=== PATIENT | female | born 1945 | race Caucasian/White ===

== ENCOUNTER → 2016-03-02 | Outpatient (CLI) | payer OTHER ==
[~2016-03-02] MED LIST: ADULT LOW DOSE81 MG PO; ALEVE220 MG; ALIVE WOMEN'S1 EACH PO; ANTIVERT25 MG PO; ASPIRIN EC81 M1; AZITHROMYCIN 2250 MG PO; BLADDER PILL; CARISOPRODOL 3350 MG PO; CEFDINIR300 MG PO; CELEXA20 MG PO; CELEXA40 MG PO; CITRATE OF MAG296 ML PO; CLARITIN10 MG PO; CLONIDINE0.1 PO; CYCLOBENZAPRINE5 MG PO; DEPRESSION PO; DILTIAZEM ER240 M1 PO; DRANOCHOL375 MG PO; EFFEXOR XR75 MG PO; FISHOIL PO; FLONASE 0.05%50 MCG NASAL; FOSAMAX 70 MG T70 M1 PO; FUROSEMIDE 40 M40 M1 PO; FUROSEMIDE PO; GLUCOPHAGE500 MG PO; GLUCOSAMINE &1 EAC1 PO; HYDROCODON-ACE1 EAC8 PO; HYDROCODONE-AP1 EAC6 PO; HYZAAR 100-251 EACH PO; HYZAAR 50-12.51 EACH PO; HYZAAR PO; IBUPROFEN 800800 MG PO; KLOR-CON 1010 MEQ; LANTUS SC; LANTUS SUBQ; LASIX 40 MG TAB40 M1 PO; LEVOTHROID; LEVOTHROID100 MC1 PO; LEVOTHYROXINE 0.1 MG PO; LEVOTHYROXINE100 MC1 PO; LEVOXYL100 MCG PO; LEVSIN0.125 MG PO; LEXAPRO20 MG; LIPITOR10 MG PO; LOPRESSOR50 PO; LOSARTAN-HCTZ1 EAC1 PO; LOSARTAN-HCTZ1 EACH PO; MECLIZINE HCL25 M1 PO; METFORMIN PO; MIRALAX17 GM PO; MOTION SICKNESS50 MG PO; NAPROSYN500 MG PO; NEPHROCAPS SOFT1 CAP PO; NEURONTIN 300300 M1 PO; NORCO 5-325 TA1 EACH; NORCO 5-325 TA1 EACH PO; NORVASC5 MG PO; NOVOLOG100 UNIT/1; NOVOLOG100 UNIT/1 SQ; OMEPRAZOLE; OMEPRAZOLE 20 M20 M1 PO; OMEPRAZOLE40 MG PO; OXYBUTYNIN 5 MG5 M1; OXYBUTYNIN 5 MG5 M1 PO; PAMELOR50 MG PO; PEPCID COMPLET1 EACH PO; PHENERGAN 25 MG25 M1 PO; POTASSIUM CL 225 MEQ PO; POTASSIUM20 PO; PREDNISONE; PREDNISONE 10 M10 MG PO; PREVACID PO; PREVACID15 MG; PRILOSEC40 MG PO; PROTONIX40 M1 PO; RANITIDINE PO; SIMVASTATIN40 MG PO; SYNTHROID PO; TRAMADOL 50 MG50 MG PO; ULTRAM 50MG TAB50 MG PO; VENLAFAXINE HC150 MG PO; VITAMIN D31 ML MC; ZANTAC 150MG T150 M1; ZANTAC 150MG T150 MG PO; ZESTORETIC 20-1 EACH PO; ZOCOR PO; ZOCOR40 MG PO; ZOFRAN ODT4 MG PO
--- NOTE | ~2016-03-02 | PFR/MVV ---
[facility] [place] [address] PULMONARY FUNCTION MVV/REPORT Name: ROLAND FOREMAN Room #: REG [facility].#: [id number] Admission: 03/02/16 Attend Phys: Gary Simental MD Discharge: Date of : 49 Report #: [id number] THIS REPORT FOR: //name// COPIES FOR: AGE: 70 SEX/RACE: F/C >> SPIROMETRY: (BTPS) Height: 66 in cm Weight: 190 lbs kg Exam Date: 03/02/16 PRE-RX POST-RX PRED BEST %PRED BEST %PRED %CHG FVC LITERS . 3.12 . 2.70 . 87 . 2.29 . 74 . -15 FEV1 LITERS . 2.46 . 2.11 . 86 . 2.01 . 82 . -5 FEV1/FVC % . 81 . 78 . 96 . 88 . 108 . 12 EEY49-98% L/Sec . 2.53 . 2.03 . 80 . 2.06 . 121 . 51 PEF L/SEC . 5.78 . 4.52 . 78 . 4.90 . 85 . 8 FEF50/FIF50 UNITLESS . <1.00 . 0.83 . . 24.73 . . 2872 MVV L/Min . 86 . 53 . 62 f 1/Min . . 95 . >> LUNG VOLUMES: (BTPS) PRE-RX POST-RX PRED AVG %PRED AVG %PRED %CHG VC Liters . 3.12 . 2.70 . 87 . . . TLC Liters . 5.23 . 5.16 . 99 . . . RV Liters . 2.08 . 2.46 . 118 . . . RV/TLC % . 40 . 48 . 120 . . . FRC PL Liters . 2.71 . 3.09 . 114 . . . FRC N2 Liters . 2.71 . . . . . ERV Liters . . 0.63 . . . . IC Liters . . 1.77 . . . . >> DIFFUSION: DLCO ml/Min/mmHg . 22.9 . 12.6 . 55 . . . DL Oscar ml/Min/mmHg . 22.9 . 12.6 . 55 . 3.63 . 3.86 . 107 DLCO/VA ml/Min/mmHg . . 3.27 . . . . VA Liters . . . . . . [facility] [address] [place] [address] PULMONARY FUNCTION MVV/REPORT Name: ROLAND FOREMAN Room #: REG [facility] Mansoor#: [id number] Admission: 03/02/16 Attend Phys: Gary Simental MD Discharge: Date of : 49 Report #: [id number] COMMENTS: COMMENTS: >> RESISTANCE: PRE-RX PRED AVG %PRED Raw Total cmH20/L/Sec . . 4.39 . Raw Insp cmH20/L/Sec . . 5.53 . Raw Exp cmH20/L/Sec . . 3.52 . Raw cmH20/L/Sec . 1.42 . 1.90 . 134 Gaw L/Sec/cmH20 . 0.649 . 0.526 . 81 sRaw cmH20 Sec . 3.83 . 6.26 . 163 sGaw l/cmH20 Sec . 0.261 . 0.160 . 61 Vtq Liters . . 3.29 . # = OUTSIDE 95% CONFIDENCE INTERVAL CALIBRATION: PRED: 3.00 ACTUAL: EXP 3.01 INSP 3.02 [facility]-OL10-06 [facility]-[place]-05 N-1804-4 >> INTERPRETATION/IMPRESSION: CC: Gary Simental DATE OF SERVICE: 03/02/2016 NOTATION: Full pulmonary function study reveals normal spirometry. There are no significant changes in bronchodilators. Lack of improvement with bronchodilators does not preclude a therapeutic trial of bronchodilator medications. Lung volumes are normal. DLCO is mildly reduced but ____ for alveolar volumes suggest overall normal full pulmonary function studies. The patient did have some difficulty doing the DLCO maneuver which may explain the ____ lung volume doing that particular portion of the study. <ELECTRONICALLY SIGNED> By: Stephen Mckeon MD 03/08/16 1510 Stephen Mckeon MD /nt
== END ==
LOC: PUL 08:12
DX: Z01.818 Encounter for other preprocedural examination (principal)

== ENCOUNTER → 2016-03-09 | Outpatient (CLI) | payer OTHER | LOC: NUC 02-10 12:03 | DX: K21.9 Gastro-esophageal reflux disease without esophagitis (principal) ==

== ENCOUNTER 2016-05-11 10:20 | Inpatient (IN) | payer OTHER ==
[~2016-05-11] VITALS: Ht 167.6 cm; Wt 90.3 kg
--- NOTE | ~2016-05-11 | H ---
[facility] [place] [address] HISTORY AND PHYSICAL Name: ROLAND FOREMAN Room #: 238-P ADM IN M.R.#: [id number] Admission: 05/11/16 Attend Phys: Gary Simental MD Discharge: Date of : 49 Report #: [id number] THIS REPORT FOR: //name// CC: Gary Simental DATE OF SERVICE: 05/11/2016 CHIEF COMPLAINT: Reflux, abdominal pain and suicidal thoughts. HISTORY OF PRESENT ILLNESS: The patient was seen in the ER by me yesterday after presenting to our psychologist and complaining of increasing pain. She was talking to the psychologist that she was feeling suicidal because she could not deal with this pain anymore. She apparently has a significant hiatal hernia and was able to consult with Dr. Martin to have this repaired. She is waiting on that procedure next Monday, where it sounds like there is manometry to be done before surgery. The patient states that because of this reflux, she gets short of breath all the time. She cannot lie flat. Because she cannot lie flat, she cannot sleep. She has been for the last many weeks. She has just become frustrated over this. PAST MEDICAL HISTORY: Significant for: 1. Hypertension. 2. Hyperlipidemia. 3. Diabetes mellitus. 4. Arthritis. 5. Sleep apnea. 6. Migraines. 7. Fibromyalgia. 8. Reflux. 9. Depression with suicidal ideations in the past. 10. Prior lab band surgery. 11. Prior MRSA. 12. Prior hysterectomy. 13. Prior bladder pin-up. MEDICATIONS: Include Lasix 40 mg a day, omeprazole 20 mg b.i.d., Synthroid 100 mcg a day, Norvasc 10 mg a day, motion sickness patches daily for the nausea, [place] daily, atorvastatin 10 mg a day, Hyzaar 100/25 one daily, venlafaxine 75 mg a day, NovoLog 20 units t.i.d., aspirin 81 mg a day, metformin 500 mg b.i.d. and oxybutynin 5 mg b.i.d. ALLERGIES: . SOCIAL HISTORY: Nonsmoker, nondrinker. No recreational drugs. REVIEW OF SYSTEMS: [address] [address] HISTORY AND PHYSICAL Name: ROLAND FOREMAN Room #: 238-P [facility] IN .R.#: [id number] Admission: 05/11/16 Attend Phys: Gary Simental MD Discharge: Date of : 49 Report #: [id number] CONSTITUTIONAL: No fever or chills. HEENT: No headaches or visual changes. CHEST: She has the shortness of breath and cough with the reflux. GASTROINTESTINAL: There is severe reflux. No black stools or blood in her stools. GENITOURINARY: No burning or frequency. EXTREMITIES: No new joint pains. SKIN: No new rashes or wounds. NEUROLOGIC: No new numbness or weakness. PHYSICAL EXAMINATION: VITAL SIGNS: Blood pressure 174/78, pulse of 97 and respiratory rate 20. She was afebrile. GENERAL: The patient in the ER was awake and alert, in no acute distress, little bit anxious. HEENT: Her mucous membranes were moist. NECK: Supple. No adenopathy, thyromegaly or bruits. CHEST: Clear to auscultation bilaterally. CARDIOVASCULAR: Regular rate and rhythm, without murmur. ABDOMEN: Obese, soft. Mildly tender in the epigastrium. Bowel sounds were active. No masses. No hepatosplenomegaly. EXTREMITIES: Showed no edema. Pulses were intact. LABORATORY DATA: Sodium 140, potassium 4.3, chloride 105, bicarbonate 29, BUN 18, creatinine 1.1, glucose 335 and calcium 10. Total bilirubin 1.1, D bili 0.2. AST 17, ALT 27 and alkaline phosphatase 152. WBCs 5.1, hemoglobin 11.4, hematocrit 34.5 and platelet count 170,000. Urinalysis has many bacteria, but also many epithelial cells. ASSESSMENT AND PLAN: 1. Abdominal pain with severe reflux and hiatal hernia. 2. Suicidal ideations. Plan, we will admit her in the suicide riggs. Consult GI and surgery to see about planning for this hiatal hernia surgery. We will continue her on Protonix. 3. Diabetes mellitus. Resume her home meds. 4. Asthma. Renew home meds. 5. Hyperlipidemia. Renew home meds. 6. Hypertension. Renew meds. By: 1303 1337 Gary Simental MD /nt
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
--- NOTE | ~2016-05-11 | S ---
[facility] [place] [address] SURGICAL PATH RPT PROCEDURE Name: CIARA FOREMAN Room #: 409-P [facility] IN M.R.#: [id number] Admission: 05/11/16 Date of : 49 Discharge: 05/15/16 Report #: [id number] Path Case #: [id number] PATHOLOGY REPORT COLLECTION DATE: 05/12/2016 RECEIVED DATE: 05/13/2016 SUBMITTING PHYS: Dr. Hollie De Oliveira OTHER PHYS: Dr. Gary Simental SPECIMEN(S) RECEIVED: A.Gastric B.Cardia polyp * * * * * * * * * * * * FINAL DIAGNOSIS: A. Gastric mucosa, gastric, endoscopic biopsy: - No significant diagnostic abnormalities present. - Negative for Helicobacter pylori. B. Polyp, cardia polyp, endoscopic biopsy: - Compatible with a fundic gland polyp. - Negative for dysplasia or malignancy. COMMENT: Helicobacter pylori immunohistochemical stain performed on block A1-negative. (IUV:mgr; d/t: 05/16/16) PATHOLOGIST: Selene Walker M.D. REPORT ELECTRONICALLY SIGNED BY: Selene Walker M.D. DATE/TIME: 05/16/2016 16:07 * * * * * * * * * * * * GROSS PATHOLOGY: A. Received in formalin labeled "Ciara Foreman and gastric," are 3 segments of servin soft tissue measuring 2.0 x 0.3 x 0.2 cm in aggregate dimensions and ranging from 0.6 to 0.7 cm in maximum dimension. The specimen is submitted entirely in cassette A1. B. Received in formalin labeled "Hanna Foreman," is a segment of servin soft tissue measuring 0.4 cm in maximum dimension. The specimen is submitted entirely in cassette B1. (TTL; 05/13/2016) CLINICAL HISTORY: Nausea/vomiting, abdominal pain [facility] Sandra [facility] [address] [place] [address] SURGICAL PATH RPT PROCEDURE Name: CIARA FOREMAN Room #: 409-[facility] IN M.R.#: [id number] Admission: 05/11/16 Date of : 49 Discharge: 05/15/16 Report #: [id number] Path Case #: [id number] INITIAL CPT CODE(S): A; 89472, 93986 B; 67982 Professional services performed by [facility] [address], [place] [address] Technical services performed by [facility] at [address] [place] [address], [facility] [address] [place] [address]. [facility] [address] [place] [id number] PHONE: [phone] DIRECTOR: Sherman Weinstein M.D. * * * END OF REPORT * * *
--- NOTE | ~2016-05-11 | P ---
[facility] [place] [address] PROCEDURE REPORT Name: ROLAND FOREMAN Room #: 238-P [facility] IN M.R.#: [id number] Admission: 05/11/16 Attend Phys: Gary Simental MD Discharge: Date of : 49 Report #: [id number] THIS REPORT FOR: //name// CC: Gary Simental MD DATE OF SERVICE: 05/12/2016 PROCEDURE: EGD with biopsies. She is a patient of Dr. Gary Simental. INDICATION FOR PROCEDURE: Evaluate epigastric pain and evaluate hiatal hernia. Informed consent for this procedure was obtained prior to the administration of any medication. The risks of the procedure which include bleeding, perforation, infection, complications of sedation and the possibility I could miss something have been explained to the patient and she has indicated her consent by signing. Propofol was slowly titrated before and during this procedure for patient comfort by the anesthesia service in the OR. Initially after the scope was inserted into the patient's mouth and upper esophagus without any type of touching of the cords, the patient experienced a laryngospasm. We were able to get her out of this fairly easily and then, we decided that she should be intubated for airway protection as laryngospasm could have recurred upon retrial with EGD scope and so, she was intubated and mechanically ventilated for this procedure. Then, the [employer] upper videoscope was introduced through the upper esophageal sphincter and advanced under direct visualization to the descending duodenum. Findings are noted on withdrawal of the scope. The duodenal mucosa appears normal throughout its entirety. Pylorus, normal mucosa. Antrum, erythematous mucosa. Biopsies were obtained times 3 from the antrum and body of the stomach for histopathology. Body, normal mucosa. Cardia and fundus, normal mucosa except for a small 3 mm sessile polyp in the cardia of the fundus that I removed in toto with the regular biopsy forceps and sent to pathology lab. Good hemostasis was noted after that polypectomy. Retroflex view did not reveal any hiatal hernia at this time. The scope was withdrawn into the esophagus. The Z line is appropriately located at the top of the gastric folds and appears normal. The esophageal mucosa appears normal throughout its entirety. The scope was withdrawn. The patient went to the recovery area in stable condition. She tolerated the procedure well. IMPRESSION: 1. Polyp in the cardia of the stomach sized 3 mm, removed and sent to Pathology as above. 2. Antral gastritis. Biopsies were obtained for histopathology and Helicobacter pylori evaluation. [address] [address] PROCEDURE REPORT Name: ROLAND FOREMAN Room #: 238-P [facility] IN M.R.#: [id number] Admission: 05/11/16 Attend Phys: Gary Simental MD Discharge: Date of : 49 Report #: [id number] RECOMMENDATIONS: 1. To await the path report. We will start proton pump inhibitors for her for the gastric erythema. 2. We will resume her usual diet. 3. No dilatation of the esophagus was undertaken as when I spoke with the patient prior to the procedure, she was not having dysphagia at this time and I did actually watch her eat an entire turkey sandwich last night without any difficulty. Thank you very much once again for allowing me to participate in her care, Dr. Simental. <ELECTRONICALLY SIGNED> By: Hollie De Oliveira DO 05/12/162124 43 53 Hollie De Oliveira DO /nt
--- NOTE | ~2016-05-11 | P ---
[facility] [place] [address] PROCEDURE REPORT Name: ROLAND FOREMAN Room #: 238-P ADM IN M.R.#: [id number] Admission: 05/11/16 Attend Phys: Gary Simental MD Discharge: Date of : 49 Report #: [id number] THIS REPORT FOR: //name// CC: Gary Simental MD DATE OF SERVICE: 05/12/2016 PATIENT OF: Gary Simental M.D. INDICATION FOR PROCEDURE: Evaluate epigastric pain and right upper quadrant pain of undetermined etiology. PROCEDURE IN DETAIL: Informed consent for this procedure was obtained prior to the administration of any medication. The risks of the procedure which include bleeding, perforation, infection, complications of sedation and the possibility I could miss something have been explained to the patient and she has indicated her consent by signing. Propofol was slowly titrated before and during this procedure for patient comfort by the anesthesia service and the patient did experience laryngospasm on the first insertion of the scope. So the patient was brought out of the laryngospasm and then intubated for airway protection for the EGD. Then, the [employer] upper videoscope was introduced through the upper esophageal sphincter and advanced under direct visualization to the descending duodenum. Findings are noted on withdrawal of the scope. The duodenal mucosa appears normal throughout its entirety. Pylorus, normal mucosa. Antrum, erythematous mucosa. Biopsies were obtained x 3 from the antrum and the body of the stomach for histopathology. Body, normal mucosa. Cardia and fundus, normal mucosa except for a 3 mm sessile polyp in the cardia of the fundus that was removed in toto with the regular biopsy forceps and sent to pathology lab. Good hemostasis was noted after that polypectomy. Scope was then withdrawn into the esophagus. The Z-line is appropriately located at the top of the gastric folds and appears normal. The esophageal mucosa appears normal throughout its entirety. The scope was withdrawn. The patient went to the recovery area in stable condition. She tolerated the procedure well. IMPRESSION: 1. Cardia polyp, size 3 mm, removed as above. 2. Antral erythema. Biopsies pending. Other than that, normal esophagogastroduodenoscopy to descending duodenum. I did not see any evidence of a hiatal hernia, but most hiatal hernias slide up and down and sometimes they are visible and sometimes they are not. My recommendations were to await the biopsy results. We will start her on some proton pump inhibitors until the gastric erythema is cleared up. [facility] [address] [place] [address] PROCEDURE REPORT Name: ROLAND FOREMAN Room #: 238-P [facility] IN .R.#: [id number] Admission: 05/11/16 Attend Phys: Gary Simental MD Discharge: Date of : 49 Report #: [id number] Thank very much once again for allowing me to participate in her care, Gary. Her ultrasound of the abdomen was negative. She was in tolerated of a PIPIDA scan and so we canceled it. <ELECTRONICALLY SIGNED> By: Hollie De Oliveira DO 05/12/16 2325 1355 2143 Hollie De Oliveira DO /nt
[2016-05-11 10:26] VITALS: BP 174/78
[2016-05-11 11:10] LABS: ABSOLUTE NEUTROPHILS 3.9 thou/uL (1.4-8.2); BASOPHILS 0.8 % (0.0-2.0); EOSINOPHILS 2.5 % (0.0-3.0); HEMATOCRIT 34.5 % (37.0-47.0); HEMOGLOBIN 11.4 gm/dL (12.0-15.0); LYMPHOCYTES 16.1 % (24.0-44.0); MCH 28.4 pg (26.0-34.0); MCHC 33.1 g/dL (28.0-37.0); MCV 85.7 fL (80.0-100.0); MONOCYTES 5.1 % (1.0-8.0); PLATELET COUNT 170 thou/uL (150-400); POLYS 75.5 % (36.0-66.0); RBC 4.03 mil/uL (4.20-5.00); RDW 15.3 % (10.5-14.5); WBC 5.1 thou/uL (4.0-11.0)
[2016-05-11 11:15] LABS: URINE BLOOD NEGATIVE (Negative); URINE COLOR YELLOW; URINE GLUCOSE-RANDOM* 3+ (Negative); URINE KETONES TRACE (Negative); URINE NITRITE NEGATIVE (Negative); URINE PROTEIN (DIPSTICK) 2+ (Negative); URINE SPECIFIC GRAVITY >= 1.030 (1.003-1.035); URINE UROBILINOGEN 0.2 E.U./dl (0.2-1.0)
[2016-05-11 11:16] LABS: ICTOTEST (BILI CONFIRMATORY) Negative (Negative); URINE BILIRUBIN NEGATIVE (Negative)
[2016-05-11 11:16] LABS: CREATININE 1.1 mg/dL (0.6-1.3); POTASSIUM 4.3 mmol/L (3.5-5.1)
[2016-05-11 11:21] LABS: ALBUMIN 3.7 g/dL (3.4-5.0); DIRECT BILIRUBIN 0.2 mg/dL (<0.1-0.3); TOTAL BILIRUBIN 1.1 mg/dL (<0.1-1.0); TOTAL PROTEIN 6.9 g/dL (6.4-8.2)
[2016-05-11 11:22] LABS: MANUAL DIFF NO
[2016-05-11 11:35] LABS: SQUAMOUS >10 Many /LPF (0-3)
[2016-05-11 11:36] LABS: BACTERIA >30 Many /HPF (None Seen); CASTS None Seen /LPF (None Seen); CRYSTALS None Seen /LPF (None Seen); URINE RBC 0-2 Rare /HPF (0-2); URINE WBC 6-15 Few /HPF (0-5)
[2016-05-11 13:46] VITALS: BP 169/83
[2016-05-11 13:52] VITALS: BP 162/95
[2016-05-11 15:59] VITALS: BP 159/93
[2016-05-11 16:00] VITALS: BP 159/93
[2016-05-11 20:00] VITALS: BP 160/73
[2016-05-12] VITALS: BP 148/69
[2016-05-12 04:00] VITALS: BP 140/77
[2016-05-12 05:07] LABS: HEMATOCRIT 33.2 % (37.0-47.0); HEMOGLOBIN 10.9 gm/dL (12.0-15.0); MCH 28.5 pg (26.0-34.0); MCHC 32.9 g/dL (28.0-37.0); MCV 86.6 fL (80.0-100.0); RBC 3.84 mil/uL (4.20-5.00); RDW 15.3 % (10.5-14.5); WBC 4.9 thou/uL (4.0-11.0)
[2016-05-12 05:16] LABS: CALCIUM 9.8 mg/dL (8.5-10.1); CREATININE 1.3 mg/dL (0.6-1.3); POTASSIUM 4.7 mmol/L (3.5-5.1)
[2016-05-12 08:30] VITALS: BP 146/56
[2016-05-12 14:14] VITALS: BP 166/98
[2016-05-12 16:05] VITALS: BP 157/74
[2016-05-12 23:48] VITALS: BP 151/78
[2016-05-13 04:51] VITALS: BP 159/77
[2016-05-13 08:30] VITALS: BP 159/76
[2016-05-13 12:25] VITALS: BP 148/78
[2016-05-13 15:47] VITALS: BP 170/80
[2016-05-13 15:49] VITALS: BP 139/73
[2016-05-13 20:13] VITALS: BP 153/85
[2016-05-14 04:48] LABS: HEMATOCRIT 33.3 % (37.0-47.0); HEMOGLOBIN 11.1 gm/dL (12.0-15.0); MCH 28.8 pg (26.0-34.0); MCHC 33.2 g/dL (28.0-37.0); RBC 3.83 mil/uL (4.20-5.00); RDW 15.5 % (10.5-14.5); WBC 5.2 thou/uL (4.0-11.0)
[2016-05-14 05:29] LABS: ALBUMIN 3.3 g/dL (3.4-5.0); CALCIUM 10.2 mg/dL (8.5-10.1); CREATININE 1.3 mg/dL (0.6-1.3); POTASSIUM 3.9 mmol/L (3.5-5.1); TOTAL BILIRUBIN 0.5 mg/dL (<0.1-1.0); TOTAL PROTEIN 6.8 g/dL (6.4-8.2)
[2016-05-14 07:53] VITALS: BP 153/65
[2016-05-14 16:25] VITALS: BP 161/70
[2016-05-15 08:01] VITALS: BP 169/71
[2016-05-15 13:47] VITALS: BP 169/71
[2016-05-15 16:08] VITALS: BP 156/77
== END 2016-05-15 18:18 | disposition home or self-care (01) | DRG 392 ==
LOC: ER 10:20 → ICU 11:34 → EROBS 11:34 → ICU 13:46 → 5S 05-13 15:08 → ICU 05-13 15:15 → 5S 05-13 15:33 → 4N 05-15 13:27
PROVIDERS: Emergency Medicine; Nurse Practitioner Adult Health
PROC: 0DB68ZX Excision of Stomach, Via Natural or Artificial Opening Endoscopic, Diagnostic (ICD-10-PCS; principal; 2016-05-12)
DX: K21.9 Gastro-esophageal reflux disease without esophagitis (principal); R45.851 Suicidal ideations; I10 Essential (primary) hypertension; F32.9 Major depressive disorder, single episode, unspecified; H81.09 Meniere's disease, unspecified ear; E11.9 Type 2 diabetes mellitus without complications; M79.7 Fibromyalgia; G47.33 Obstructive sleep apnea (adult) (pediatric); K44.9 Diaphragmatic hernia without obstruction or gangrene; M19.90 Unspecified osteoarthritis, unspecified site; K31.84 Gastroparesis; E78.5 Hyperlipidemia, unspecified; I45.4 Nonspecific intraventricular block; G43.909 Migraine, unspecified, not intractable, without status migrainosus; J45.909 Unspecified asthma, uncomplicated; K29.70 Gastritis, unspecified, without bleeding; Z79.82 Long term (current) use of aspirin; Z79.899 Other long term (current) drug therapy; Z90.710 Acquired absence of both cervix and uterus; Z86.73 Personal history of transient ischemic attack (TIA), and cerebral infarction without residual deficits; Z98.84 Bariatric surgery status; Z86.14 Personal history of Methicillin resistant Staphylococcus aureus infection
CPT/HCPCS: 10086; 10196; 62110; 70005

== ENCOUNTER 2016-07-01 05:14 | Emergency (ER) | payer OTHER ==
[~2016-07-01] VITALS: Ht 160 cm; Wt 83.9 kg
[2016-07-01 05:35] LABS: HEMATOCRIT 37.1 % (37.0-47.0); HEMOGLOBIN 12.5 gm/dL (12.0-15.0); MCH 28.2 pg (26.0-34.0); MCHC 33.6 g/dL (28.0-37.0); MCV 83.7 fL (80.0-100.0); RBC 4.43 mil/uL (4.20-5.00); WBC 6.4 thou/uL (4.0-11.0)
[2016-07-01 05:46] LABS: CALCIUM 10.4 mg/dL (8.5-10.1); CREATININE 1.1 mg/dL (0.6-1.0); POTASSIUM 3.7 mmol/L (3.5-5.1)
[2016-07-01 05:47] LABS: ALBUMIN 3.8 g/dL (3.4-5.0); DIRECT BILIRUBIN 0.1 mg/dL (<0.1-0.3); TOTAL BILIRUBIN 0.8 mg/dL (<0.1-1.0); TOTAL PROTEIN 7.8 g/dL (6.4-8.2)
[2016-07-01 08:16] LABS: URINE BILIRUBIN NEGATIVE (Negative); URINE BLOOD TRACE (Negative); URINE COLOR YELLOW; URINE GLUCOSE-RANDOM* 3+ (Negative); URINE KETONES NEGATIVE (Negative); URINE LEUKOCYTES-REFLEX NEGATIVE (Negative); URINE PROTEIN (DIPSTICK) TRACE (Negative); URINE SPECIFIC GRAVITY 1.015 (1.003-1.035); URINE UROBILINOGEN 0.2 E.U./dl (0.2-1.0)
[2016-07-01] MEDS ORDERED: ZOFRAN ODT4 MG PO (09:25)
== END 2016-07-01 09:43 | disposition home or self-care (01) ==
LOC: ER 05:14
PROVIDERS: Emergency Medicine
DX: R10.32 Left lower quadrant pain (principal); R11.2 Nausea with vomiting, unspecified; I10 Essential (primary) hypertension; G43.909 Migraine, unspecified, not intractable, without status migrainosus; K21.9 Gastro-esophageal reflux disease without esophagitis; M79.7 Fibromyalgia; E11.9 Type 2 diabetes mellitus without complications; Z90.710 Acquired absence of both cervix and uterus; Z86.73 Personal history of transient ischemic attack (TIA), and cerebral infarction without residual deficits; G47.30 Sleep apnea, unspecified; E78.5 Hyperlipidemia, unspecified; Z91.048 Other nonmedicinal substance allergy status

== ENCOUNTER 2016-07-23 20:02 | Emergency (ER) | payer OTHER ==
[~2016-07-23] VITALS: Ht 167.6 cm; Wt 81.7 kg
--- NOTE | ~2016-07-23 | EKG ---
[place] [address] [facility] [place] [address] ELECTROCARDIOGRAM REPORT Name: ROLAND FOREMAN Room #: 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 VIVAS : 1945 Requested By: Dwain Jones Order Number: [id number] MD: Kaveh Chicas Measurements Intervals [place] Rate: 90 P: 24 TN: 177 QRS: 213 QRSD: 136 T: 27 QT: 386 QTc: 473 Interpretive Statements Limb lead reversal Sinus rhythm Left bundle branch block Compared to ECG 02/06/2016 10:59:39 No significant change was found recommended repeat tracing Electronically Signed On 07-24-2016 15:59:51 CDT by Kaveh Chicas [email or web address] <ELECTRONICALLY SIGNED> By: Kaveh Chicas MD, [facility] 07/24/16 1929 13 13 Kaveh Chicas MD, [facility] /EPI
[2016-07-23 20:35] LABS: ABSOLUTE NEUTROPHILS 4.3 thou/uL (1.4-8.2); BASOPHILS 0.8 % (0.0-2.0); HEMATOCRIT 36.4 % (37.0-47.0); LYMPHOCYTES 21.7 % (24.0-44.0); MCH 28.1 pg (26.0-34.0); MCV 85.1 fL (80.0-100.0); MONOCYTES 3.9 % (1.0-8.0); PLATELET COUNT 197 thou/uL (150-400); POLYS 69.6 % (36.0-66.0); RBC 4.28 mil/uL (4.20-5.00); RDW 17.3 % (10.5-14.5); WBC 6.2 thou/uL (4.0-11.0)
[2016-07-23 20:38] LABS: MANUAL DIFF NO
[2016-07-23 20:40] LABS: ANION GAP 8 mmol/L (7-16); BUN 16 mg/dL (7-18); CALCIUM 10.6 mg/dL (8.5-10.1); CHLORIDE 107 mmol/L (98-107); CO2 28 mmol/L (21-32); CREATININE 1.1 mg/dL (0.6-1.0); GLUCOSE 167 mg/dL (74-106); POTASSIUM 3.8 mmol/L (3.5-5.1); SODIUM 143 mmol/L (136-145)
[2016-07-23 20:52] LABS: ALBUMIN 3.9 g/dL (3.4-5.0); ALKALINE PHOSPHATASE 127 U/L (46-116); NT-PRO BRAIN NAT PEPTIDE 3976 pg/mL (<300); SGOT 18 U/L (15-37); SGPT 24 U/L (30-65); TOTAL BILIRUBIN 0.9 mg/dL (<0.1-1.0); TOTAL PROTEIN 7.7 g/dL (6.4-8.2); TROPONIN-I < 0.04 ng/mL (<0.04-0.07)
[2016-07-23] MEDS ORDERED: NORVASC10 MG PO (21:30)
[2016-07-23] MEDS ORDERED: POTASSIUM20 MEQ/15 PER TUBE (21:30)
[2016-07-23] MEDS ORDERED: FLONASE 0.05%50 MCG NASAL (21:30)
[2016-07-23] MEDS ORDERED: LASIX 40 MG TAB40 M2 PO (21:30)
== END 2016-07-23 22:19 | disposition home or self-care (01) ==
LOC: ER 20:02
PROVIDERS: Physician Assistant
DX: I11.0 Hypertensive heart disease with heart failure (principal); I50.9 Heart failure, unspecified; J81.1 Chronic pulmonary edema; R06.02 Shortness of breath; E78.5 Hyperlipidemia, unspecified; E11.9 Type 2 diabetes mellitus without complications; M19.90 Unspecified osteoarthritis, unspecified site; K21.9 Gastro-esophageal reflux disease without esophagitis; Z86.73 Personal history of transient ischemic attack (TIA), and cerebral infarction without residual deficits; Z90.710 Acquired absence of both cervix and uterus; Z98.890 Other specified postprocedural states; Z91.09 Other allergy status, other than to drugs and biological substances

== ENCOUNTER → 2016-10-12 | Outpatient (CLI) | payer OTHER ==
[~2016-10-12] MED LIST changes: +IBUPROFEN 600600 M1 PO; +LASIX 40 MG TAB40 M2 PO; +NORVASC10 MG PO; +POTASSIUM20 MEQ/15 PER TUBE
== END ==
LOC: CAT 08:34
DX: J84.9 Interstitial pulmonary disease, unspecified (principal); R06.00 Dyspnea, unspecified

== ENCOUNTER 2017-03-24 19:45 | Emergency (ER) | payer OTHER ==
[~2017-03-24] VITALS: Ht 167.6 cm; Wt 81.7 kg
[2017-03-24 20:38] LABS: HEMATOCRIT 38.1 % (37.0-47.0); HEMOGLOBIN 13.3 gm/dL (12.0-15.0); MCH 30.1 pg (26.0-34.0); MCHC 34.9 g/dL (28.0-37.0); MCV 86.3 fL (80.0-100.0); RBC 4.42 mil/uL (4.20-5.00); RDW 13.4 % (10.5-14.5); WBC 5.2 thou/uL (4.0-11.0)
[2017-03-24 20:47] LABS: CALCIUM 9.9 mg/dL (8.5-10.1); CREATININE 1.1 mg/dL (0.6-1.0); POTASSIUM 3.5 mmol/L (3.5-5.1)
[2017-03-24 20:53] LABS: ALBUMIN 3.7 g/dL (3.4-5.0); TOTAL BILIRUBIN 0.5 mg/dL (<0.1-1.0); TOTAL PROTEIN 7.6 g/dL (6.4-8.2)
[2017-03-24] MEDS ORDERED: OSELB75 PO (21:06)
[2017-03-24 21:15] VITALS: BP 155/69
== END 2017-03-24 21:44 | disposition home or self-care (01) ==
LOC: ER 19:45
PROVIDERS: Emergency Medicine
DX: J11.1 Influenza due to unidentified influenza virus with other respiratory manifestations (principal); I10 Essential (primary) hypertension; E78.5 Hyperlipidemia, unspecified; E11.9 Type 2 diabetes mellitus without complications; M19.90 Unspecified osteoarthritis, unspecified site; G43.909 Migraine, unspecified, not intractable, without status migrainosus; M79.7 Fibromyalgia; Z90.710 Acquired absence of both cervix and uterus; K21.9 Gastro-esophageal reflux disease without esophagitis

== ENCOUNTER 2017-07-06 09:40 | Inpatient (IN) | payer OTHER ==
[~2017-07-06] VITALS: Ht 167.6 cm; Wt 83.0 kg
[2017-07-06] VITALS (8 sets, daily range): BP systolic 152–180; BP diastolic 73–97
--- NOTE | ~2017-07-06 | EKG ---
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
--- NOTE | ~2017-07-06 | 2DMMODE ---
[facility] [address] [facility] [place] [address] 2 D/M-MODE ECHOCARDIOGRAM Name: SONYKINGA SILKENAMITAROLAND Room #: 405-P ADM IN M.R.#: [id number] Admission: 07/06/17 Attend Phys: Naveed Daniel MD Discharge: Date of : 49 Date of Service: 07/06/17 1616 Report #: [id number] THIS REPORT FOR: //name// APPROVED REPORT Study performed: 07/06/2017 14:55:06 EXAM: Comprehensive 2D, Doppler, and color-flow Echocardiogram Patient Location: Bedside Room #: 405 Status: routine BSA: 1.87 HR: 104 bpm BP: 180/97 mmHg Other Information Study Quality: Adequate Indications Congestive Heart Failure Dyspnea Chest Pain Hypertension/HDD 2D Dimensions RVDd: 28.23 mm LVEF(%): 27.78 (>50%) IVSd: 16.22 (7-11mm) LVOT Diam: 19.41 (18-24mm) LVDd: 44.07 mm PWd: 14.96 (7-11mm) LVDs: 38.42 (25-40mm) Aortic Root: 23.30 mm IVC: 15.00 mm Mittal's LVEF: 27.78 % Volumes Left Atrial Volume (Systole) Single Plane 4CH: 29.26 mL Single Plane 2CH: 46.44 mL LA ESV Index: 24.00 mL/m2 Aortic Valve AoV Peak Robert.: 1.60 m/s AO Peak Gr.: 10.25 mmHg LVOT Max P.16 mmHg LVOT Max V: 1.02 m/s HAYLIE Vmax: 1.88 cm2 AI Vmax: 4.78 m/s AI Greenlee: 3.90 m/s2 [facility] [place] [address] [place] [address] 2 D/M-MODE ECHOCARDIOGRAM Name: LES RIDERROLAND Room #: 405-[facility] IN M.R.#: [id number] Admission: 07/06/17 Attend Phys: Naveed Daniel MD Discharge: Date of : 49 Date of Service: 07/06/17 1616 Report #: [id number] AI PHT: 355.02 ms Mitral Valve MV Decel. Time: 89.48 ms MV E Max Robert.: 1.83 m/s IVRT: 103.81 ms Pulmonary Valve PV Peak Robert.: 0.96 m/s PV Peak Gr.: 3.71 mmHg Tricuspid Valve TR Peak Robert.: 4.15 m/s RAP Estimate: 5.00 mmHg TR Peak Gr.: 68.81 mmHg PA Pressure: 74.00 mmHg Left Ventricle The left ventricle is normal size. Moderate concentric left ventricular hypertrophy. Left ventricular ejection fraction is severely decreased. LVEF is 25%. Discordant septal motion This study is not technically sufficient to allow evaluation of the LV diastolic function. Right Ventricle The right ventricle is normal size. Right ventricle is mildly hypokinetic. Atria The left atrium size is normal. The right atrium size is normal. Aortic Valve The aortic valve is normal in structure. Mild aortic regurgitation. There is no aortic valvular stenosis. Mitral Valve The mitral valve is normal in structure. Moderate mitral regurgitation No evidence of mitral valve stenosis. Tricuspid Valve The tricuspid valve is normal in structure. Moderate tricuspid regurgitation. PAP is estimated at 70 mmHg. Pulmonic Valve Pulmonic valve is not well visualized. There is no pulmonic valvular regurgitation. [facility] [address] [place] [address] 2 D/M-MODE ECHOCARDIOGRAM Name: ROLAND FOREMAN Room #: 405-P ADM IN M.R.#: [id number] Admission: 07/06/17 Attend Phys: Naveed Daniel MD Discharge: Date of : 49 Date of Service: 07/06/17 1616 Report #: [id number] Great Vessels The aortic root is normal in size. IVC is normal in size and collapses >50% with inspiration. Pericardium There is no pericardial effusion. <Conclusion> Left ventricular ejection fraction is severely decreased. LVEF is 25%. Discordant septal motion The aortic valve is normal in structure. Mild aortic regurgitation, no stenosis. The mitral valve is normal in structure. Moderate mitral regurgitation Moderate tricuspid regurgitation. Pulmonary artery pressure estimated at 70 mmHg. There is no pericardial effusion. <ELECTRONICALLY SIGNED> By: Kaveh Chicas MD, FACC 07/06/171615 15 15 Kaveh Chicas MD, FACC /INF
--- NOTE | ~2017-07-06 | EKG ---
[address] [address] ELECTROCARDIOGRAM REPORT Name: ROLAND FOREMAN Room #: 405-P [facility] IN ..#: [id number] Admission: 07/06/17 Attend Phys: Naveed Daniel MD Discharge: Date of : 49 Report #: [id number] THIS REPORT FOR: //name// 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: [facility] : 1945 Requested By: Saray Islas Order Number: [id number] MD: Grayson Reid Measurements Intervals [place] Rate: 103 P: 80 ME: 169 QRS: -18 QRSD: 138 T: 170 QT: 389 QTc: 509 Interpretive Statements Sinus tachycardia Left bundle branch block Compared to ECG 08/28/2016 06:06:35 Sinus rhythm no longer present Ventricular premature complex(es) no longer present Electronically Signed On 07-06-2017 16:16:25 CDT by Grayson Reid [email or web address] <ELECTRONICALLY SIGNED> By: Grayson Reid MD 07/06/17 1616 1012 1012 Grayson Reid MD /EPI
[~2017-07-06 09:40] MED LIST changes: +OSELB75 PO
[2017-07-06 10:17] LABS: ABSOLUTE NEUTROPHILS 4.3 thou/uL (1.4-8.2); BASOPHILS 1.1 % (0.0-2.0); EOSINOPHILS 2.8 % (0.0-3.0); HEMATOCRIT 36.5 % (37.0-47.0); HEMOGLOBIN 12.2 gm/dL (12.0-15.0); LYMPHOCYTES 19.8 % (24.0-44.0); MCH 30.1 pg (26.0-34.0); MCHC 33.5 g/dL (28.0-37.0); MCV 89.7 fL (80.0-100.0); PLATELET COUNT 181 thou/uL (150-400); POLYS 71.3 % (36.0-66.0); RBC 4.06 mil/uL (4.20-5.00); RDW 15.6 % (10.5-14.5)
[2017-07-06 10:30] LABS: CALCIUM 10.5 mg/dL (8.5-10.1); CREATININE 1.2 mg/dL (0.6-1.0); POTASSIUM 4.8 mmol/L (3.5-5.1)
[2017-07-06] MEDS ORDERED: ANTIVERT25 MG PO (10:31)
[2017-07-06] MEDS ORDERED: CLONIDINE HCL0.3 M3 PO (10:33)
[2017-07-06 10:35] LABS: TROPONIN-I 0.06 ng/mL (<0.06)
[2017-07-07 00:26] VITALS: BP 146/64
[2017-07-07 05:17] VITALS: BP 151/73
[2017-07-07 07:05] VITALS: BP 180/86
[2017-07-07 16:06] VITALS: BP 126/69
[2017-07-07 20:09] VITALS: BP 144/65
[2017-07-08 05:00] LABS: CALCIUM 10.1 mg/dL (8.5-10.1); CREATININE 1.5 mg/dL (0.6-1.0); POTASSIUM 4.7 mmol/L (3.5-5.1)
[2017-07-08 06:00] VITALS: BP 155/80
[2017-07-08 07:16] VITALS: BP 156/83
[2017-07-08 15:30] VITALS: BP 143/68
[2017-07-08 19:30] VITALS: BP 191/99
[2017-07-08 22:01] VITALS: BP 153/83
[2017-07-09 04:01] LABS: CALCIUM 10.5 mg/dL (8.5-10.1); CREATININE 1.3 mg/dL (0.6-1.0); POTASSIUM 4.4 mmol/L (3.5-5.1)
[2017-07-09 04:30] VITALS: BP 153/76
[2017-07-09 07:20] VITALS: BP 164/83
[2017-07-09 11:30] VITALS: BP 134/53
[2017-07-09 15:35] VITALS: BP 139/59
[2017-07-09 19:25] VITALS: BP 140/88
[2017-07-10 04:23] VITALS: BP 148/79
[2017-07-10 07:30] VITALS: BP 142/68
[2017-07-10 11:20] VITALS: BP 134/69
[2017-07-10 15:35] VITALS: BP 129/58
[2017-07-10 19:33] VITALS: BP 143/76
[2017-07-11 04:33] VITALS: BP 163/90
[2017-07-11] MEDS ORDERED: ATORVASTATIN CA40 MG PO (07:21)
[2017-07-11] MEDS ORDERED: CARAFATE 1 GM TA1 G1 PO (07:22)
[2017-07-11] MEDS ORDERED: BENICAR40 MG PO (07:23)
[2017-07-11] MEDS ORDERED: ALDACTONE50 MG PO (07:23)
[2017-07-11] MEDS ORDERED: CARVEDILOL12.5 MG PO (07:24)
[2017-07-11 07:33] VITALS: BP 163/90
[2017-07-11] MEDS ORDERED: LASIX 40 MG TAB40 M1 PO (07:45)
[2017-07-11 07:50] VITALS: BP 152/80
[2017-07-11 10:00] VITALS: BP 163/90
[2017-07-11 11:20] VITALS: BP 128/70
[2017-07-11 13:01] VITALS: BP 163/90
== END 2017-07-11 13:45 | disposition home or self-care (01) | DRG 291 ==
LOC: ER 09:40 → EROBS 10:47 → 4N 10:47 → 2N 07-08 13:14 → ENTRNSPT 07-11 13:07 → EDTRNSPTSTS 07-11 13:25 → 2N 07-11 13:45
PROVIDERS: Emergency Medicine; Family Medicine; Internal Medicine
DX: I13.0 Hypertensive heart and chronic kidney disease with heart failure and stage 1 through stage 4 chronic kidney disease, or unspecified chronic kidney disease (principal); I50.23 Acute on chronic systolic (congestive) heart failure; J18.9 Pneumonia, unspecified organism; N17.9 Acute kidney failure, unspecified; I42.9 Cardiomyopathy, unspecified; J44.9 Chronic obstructive pulmonary disease, unspecified; K21.9 Gastro-esophageal reflux disease without esophagitis; E11.65 Type 2 diabetes mellitus with hyperglycemia; N18.9 Chronic kidney disease, unspecified; E11.22 Type 2 diabetes mellitus with diabetic chronic kidney disease; E78.5 Hyperlipidemia, unspecified; G43.909 Migraine, unspecified, not intractable, without status migrainosus; M79.7 Fibromyalgia; M19.90 Unspecified osteoarthritis, unspecified site; R29.6 Repeated falls; G47.33 Obstructive sleep apnea (adult) (pediatric); I44.7 Left bundle-branch block, unspecified; T50.2X5A Adverse effect of carbonic-anhydrase inhibitors, benzothiadiazides and other diuretics, initial encounter; Y92.89 Other specified places as the place of occurrence of the external cause; Z86.73 Personal history of transient ischemic attack (TIA), and cerebral infarction without residual deficits; Z90.710 Acquired absence of both cervix and uterus; Z98.84 Bariatric surgery status; Z79.4 Long term (current) use of insulin; Z79.82 Long term (current) use of aspirin; Z79.899 Other long term (current) drug therapy; Z91.018 Allergy to other foods; Z91.048 Other nonmedicinal substance allergy status; F41.9 Anxiety disorder, unspecified
CPT/HCPCS: 10081; 10790

== ENCOUNTER → 2017-12-18 | Outpatient (CLI) | payer OTHER ==
[~2017-12-18] MED LIST changes: +ALDACTONE50 MG PO; +ATORVASTATIN CA40 MG PO; +BENICAR40 MG PO; +CARAFATE 1 GM TA1 G1 PO; +CARVEDILOL12.5 MG PO; +CLONIDINE HCL0.3 M3 PO
== END ==
LOC: MRI 12:34
DX: M47.812 Spondylosis without myelopathy or radiculopathy, cervical region (principal); M25.78 Osteophyte, vertebrae; M48.02 Spinal stenosis, cervical region

== ENCOUNTER → 2017-12-20 | Outpatient (CLI) | payer OTHER | LOC: MRI 15:37 | DX: M75.122 Complete rotator cuff tear or rupture of left shoulder, not specified as traumatic (principal); M19.012 Primary osteoarthritis, left shoulder; M25.412 Effusion, left shoulder; M25.712 Osteophyte, left shoulder ==

== ENCOUNTER 2018-01-23 15:16 | Emergency (ER) | payer OTHER ==
[~2018-01-23] VITALS: Ht 172.7 cm; Wt 77.1 kg
--- NOTE | ~2018-01-23 | EKG ---
[place] [address] 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 : 1945 Requested By: Jacy Marlow Order Number: [id number] MD: Kamran Campos Measurements Intervals [place] Rate: 82 P: 152 WV: 210 QRS: -29 QRSD: 144 T: 149 QT: 388 QTc: 453 Interpretive Statements Sinus or ectopic atrial rhythm Left bundle branch block Lead(s) II were not used for morphology analysis Compared to ECG 07/07/2017 09:34:26 No significant change Electronically Signed On 01-24-2018 8:14:03 INTERVENTIONAL RADIOLOGIST by Kamran Campos [email or web address] <ELECTRONICALLY SIGNED> By: Kamran Campos MD 01/24/18 0814 1554 1554 Kamran Campos MD /SHAYY
[2018-01-23 15:54] LABS: URINE BILIRUBIN NEGATIVE (Negative); URINE BLOOD NEGATIVE (Negative); URINE CLARITY CLEAR; URINE COLOR YELLOW; URINE GLUCOSE-RANDOM* 3+ (Negative); URINE KETONES NEGATIVE (Negative); URINE LEUKOCYTES NEGATIVE (Negative); URINE NITRITE NEGATIVE (Negative); URINE PROTEIN (DIPSTICK) NEGATIVE (Negative); URINE SPECIFIC GRAVITY 1.015 (1.005-1.035); URINE UROBILINOGEN 0.2 E.U./dl (0.2-1.0)
[2018-01-23] MEDS ORDERED: NORCO 5-325 TA1 EACH PO (15:58)
[2018-01-23] MEDS ORDERED: OXYCODONE-ACET1 EACH PO (15:59)
[2018-01-23 16:04] LABS: AMP/METHAMP Negative (Negative); BARBITURATES Negative (Negative); BENZODIAZEPINES Negative (Negative); COCAINE Negative (Negative); METHADONE Negative (Negative); OPIATES POSITIVE (Negative); PCP Negative (Negative)
[2018-01-23 16:27] LABS: ABSOLUTE NEUTROPHILS 4.8 thou/uL (1.4-8.2); BASOPHILS 0.8 % (0.0-2.0); EOSINOPHILS 1.8 % (0.0-3.0); HEMATOCRIT 35.9 % (37.0-47.0); HEMOGLOBIN 12.4 gm/dL (12.0-15.0); LYMPHOCYTES 23.1 % (24.0-44.0); MCH 31.9 pg (26.0-34.0); MCHC 34.4 g/dL (28.0-37.0); MCV 92.6 fL (80.0-100.0); MONOCYTES 5.8 % (1.0-8.0); PLATELET COUNT 172 thou/uL (150-400); POLYS 68.5 % (36.0-66.0); RBC 3.88 mil/uL (4.20-5.00); RDW 12.8 % (10.5-14.5)
[2018-01-23 16:44] LABS: ANION GAP 4 mmol/L (7-16); BUN 25 mg/dL (7-18); CALCIUM 11.1 mg/dL (8.5-10.1); CHLORIDE 103 mmol/L (98-107); CO2 29 mmol/L (21-32); CREATININE 1.3 mg/dL (0.6-1.0); GLUCOSE 345 mg/dL (74-106); POTASSIUM 4.5 mmol/L (3.5-5.1); SODIUM 136 mmol/L (136-145); TROPONIN-I <0.06 ng/mL (<0.06)
[2018-01-24 04:38] VITALS: BP 148/64
[2018-01-25 20:08] LABS: TRICYCLIC (TCA) CONFIRMATION Positive ng/mL (Cutoff=100)
== END 2018-01-24 03:43 | disposition home or self-care (01) ==
LOC: ER 15:16
PROVIDERS: Student in an Organized Health Care Education/Training Program
DX: R45.851 Suicidal ideations (principal); I11.0 Hypertensive heart disease with heart failure; I50.9 Heart failure, unspecified; E78.5 Hyperlipidemia, unspecified; E11.9 Type 2 diabetes mellitus without complications; M19.90 Unspecified osteoarthritis, unspecified site; G47.30 Sleep apnea, unspecified; G43.909 Migraine, unspecified, not intractable, without status migrainosus; M79.7 Fibromyalgia; K21.9 Gastro-esophageal reflux disease without esophagitis; Z86.73 Personal history of transient ischemic attack (TIA), and cerebral infarction without residual deficits; Z90.710 Acquired absence of both cervix and uterus; Z86.14 Personal history of Methicillin resistant Staphylococcus aureus infection; Z88.8 Allergy status to other drugs, medicaments and biological substances; Z79.899 Other long term (current) drug therapy

== ENCOUNTER 2018-01-29 10:34 | Inpatient (IN) | payer OTHER ==
[~2018-01-29] VITALS: Ht 167.6 cm; Wt 83.9 kg
--- NOTE | ~2018-01-29 | O ---
[facility] [place] [address] OPERATIVE REPORT Name: ROLAND FOREMAN Room #: 150-5 ADM IN M.R.#: [id number] Admission: 02/02/18 Attend Phys: Isaias Vail MD Discharge: Date of : 49 Report #: [id number] THIS REPORT FOR: //name// CC: Isaias Simental DATE OF SERVICE: 02/02/2018 PREOPERATIVE DIAGNOSES: Left shoulder rotator cuff tear and labral tear. POSTOPERATIVE DIAGNOSES: Left shoulder rotator cuff tear and labral tear. PROCEDURES: Left shoulder arthroscopy with debridement of labral tear and open rotator cuff repair with acromioplasty. SURGEON: Isaias Vail M.D. INDICATIONS: This 72-year-old female has multiple problems causing chronic progressive discomfort. She has significant degenerative cervical spondylosis and stenosis causing both neck pain and some radicular symptoms. She is managing that elsewhere. Her primary complaint is left shoulder pain, where she has limited movement and significant impingement discomfort, with MRI findings consistent with a large retracted rotator cuff tear as well as less significant labral damage. We have elected to go ahead with surgical repair. DESCRIPTION OF PROCEDURE: The patient was taken to the operating room, where she was placed under general anesthesia. An interscalene block was also applied. The left shoulder and arm were meticulously prepped and draped. Prophylactic intravenous antibiotics were administered. The arthroscope was introduced through a posterior approach. The shoulder was inflated gently with saline. The labrum demonstrated only minor fraying and the biceps tendon was still intact and functional. There was mild degenerative cartilage damage on both the glenoid and the humeral head. There was a large retracted rotator cuff tear. Clearly, the principal problem was impingement and rotator cuff tear. The labral damage was rather insignificant and I did not feel any aggressive debridement was necessary. The biceps seemed to be functional and intact and I did not feel a biceps tenotomy was necessary. Attention was then directed to the rotator cuff repair. An anterior longitudinal skin incision was made beginning at the anterior aspect of the acromion, extending distally. This was carried through fascia and the deltoid was split longitudinally. The acromion was found to be quite prominent with significant anterior spurring, causing significant impingement and anterior acromionectomy was performed and then a limited subacromial decompression was performed. The undersurface was smoothed with a small rasp, creating a good subacromial space and relieving any significant ongoing impingement. There was [facility] [address] [place] [address] OPERATIVE REPORT Name: ROLAND FOREMAN Room #: 150-5 [facility] IN .R.#: [id number] Admission: 02/02/18 Attend Phys: Isaias Vail MD Discharge: Date of : 49 Report #: [id number] some mild spurring extending back to the acromioclavicular joint, which was smoothed also with a rasp back to a more even surface. This allowed good visualization of the rotator cuff, which was found to be badly damaged, with a sizable tear in the supraspinatus portion of the cuff. The irregular leading edge was trimmed back to a more smooth even margin. The intra-articular contents were then well visualized and again the surfaces and labrum seemed to be acceptable and no further debridement was necessary. The biceps was stable and seemed to be functional. Six #2 Tevdek sutures were placed equally spaced across the leading edge of the rotator cuff tendon. These seemed to have good purchase and resulted in secure, stable fixation on the tendon. A landing spot was then created at the greater tuberosity using a small osteotome and curettes to create a good bleeding trough. The sutures were then passed individually through the trough and out to the lateral humeral metaphysis, several centimeters away from the attachment point. They were spaced out evenly to create a good solid bony bridges for secure fixation. Once the sutures had been passed, firm tension was applied across all the sutures, bringing the rotator cuff back nicely to a satisfactory and anatomic repair point. The sutures were then tied individually over bony bridges, resulting in good stable fixation. The subacromial space was once again inspected and there seemed to be good improvement in any impingement. The shoulder appeared stable. The wound was copiously irrigated. Good hemostasis was confirmed. The deltoid was then repaired using multiple #1 Vicryl sutures. The more proximal sutures were placed through the bone of the anterior acromion, creating a good zroc-ct-glccdg tendon repair. The remainder was a owyn-oo-ifee repair with satisfactory stability and fixation. The subcuticular layer was closed with 2-0 Monocryl. The skin was closed with 2-0 Prolene. The arthroscopy portal was closed with 4-0 nylon. Steri-Strips were applied. A sterile dressing was placed and the arm was protected in a simple arm sling. The patient was then awakened and returned to the recovery room in good condition. By: 0911 0936 Isaias Vail MD /carroll
[~2018-01-29 10:34] MED LIST changes: +OXYCODONE-ACET1 EACH PO
[2018-02-01] MEDS ORDERED: CARVEDILOL12.5 MG PO (12:12)
[2018-02-01] MEDS ORDERED: ATORVASTATIN CA40 MG PO (12:12)
[2018-02-01] MEDS ORDERED: LASIX 40 MG TAB40 M2 PO (12:13)
[2018-02-01] MEDS ORDERED: NORCO 5-325 TA1 EACH PO (12:13)
[2018-02-01] MEDS ORDERED: IBUPROFEN 600600 M1 PO (12:14)
[2018-02-01] MEDS ORDERED: BENICAR40 MG PO (12:15)
[2018-02-01] MEDS ORDERED: POTASSIUM20 PO (12:16)
[2018-02-01] MEDS ORDERED: SPIRONOLACTONE50 MG PO (12:17)
[2018-02-01] MEDS ORDERED: NOVOLIN N100 UNIT/1 SUBQ (12:25)
[2018-02-02 06:33] VITALS: BP 145/74
[2018-02-02] MEDS ORDERED: NORVASC5 MG PO (07:41)
[2018-02-02 17:30] VITALS: BP 148/87
[2018-02-02 19:40] VITALS: BP 153/73
[2018-02-02 23:56] VITALS: BP 164/77
[2018-02-02 23:59] VITALS: BP 157/79
[2018-02-03 07:55] VITALS: BP 177/74
[2018-02-03 15:20] VITALS: BP 153/63
[2018-02-03 17:20] VITALS: BP 153/63
== END 2018-02-03 18:28 | disposition home or self-care (01) | DRG 502 ==
LOC: PRE 10:34 → TBA 02-02 06:00 → 4W 02-02 06:00 → PRE 02-02 14:41 → 4W 02-03 18:28
DX: M75.102 Unspecified rotator cuff tear or rupture of left shoulder, not specified as traumatic (principal); Z88.6 Allergy status to analgesic agent; Z91.09 Other allergy status, other than to drugs and biological substances; Z90.710 Acquired absence of both cervix and uterus
CPT/HCPCS: 10047; 50101; 50386; 50417; 50733; 50951; 51038; 56525; 56526; 62110; 62900; 70005

== ENCOUNTER 2018-04-04 11:32 | Emergency (ER) | payer OTHER ==
[~2018-04-04] VITALS: Ht 170.2 cm; Wt 80.7 kg
[~2018-04-04 11:32] MED LIST changes: +NOVOLIN N100 UNIT/1 SUBQ; +SPIRONOLACTONE50 MG PO
[2018-04-04 13:10] LABS: URINE BILIRUBIN NEGATIVE (Negative); URINE BLOOD NEGATIVE (Negative); URINE CLARITY CLEAR; URINE COLOR YELLOW; URINE GLUCOSE-RANDOM* 2+ (Negative); URINE KETONES NEGATIVE (Negative); URINE LEUKOCYTES-REFLEX NEGATIVE (Negative); URINE NITRITE-REFLEX NEGATIVE (Negative); URINE PROTEIN (DIPSTICK) TRACE (Negative); URINE SPECIFIC GRAVITY >= 1.030 (1.005-1.035); URINE UROBILINOGEN 0.2 E.U./dl (0.2-1.0)
[2018-04-04] MEDS ORDERED: VITAMIN D1000 UNIT PO (13:19)
[2018-04-04] MEDS ORDERED: AMITRIPTYLINE H25 M2 PO (13:19)
[2018-04-04] MEDS ORDERED: OXYBUTYNIN 5 MG5 M2 PO (13:20)
[2018-04-04] MEDS ORDERED: MOBIC7.5 MG PO (13:27)
[2018-04-04] MEDS ORDERED: OMEPRAZOLE20 M2 PO (13:32)
[2018-04-04 13:34] VITALS: BP 155/63
== END 2018-04-04 13:41 | disposition home or self-care (01) ==
LOC: ER 11:32
PROVIDERS: Nurse Practitioner Family
DX: M48.061 Spinal stenosis, lumbar region without neurogenic claudication (principal); M17.0 Bilateral primary osteoarthritis of knee; M79.671 Pain in right foot; M79.7 Fibromyalgia; K21.9 Gastro-esophageal reflux disease without esophagitis; I10 Essential (primary) hypertension; G43.909 Migraine, unspecified, not intractable, without status migrainosus; E78.5 Hyperlipidemia, unspecified; G47.30 Sleep apnea, unspecified; E11.9 Type 2 diabetes mellitus without complications; F32.9 Major depressive disorder, single episode, unspecified; Z88.8 Allergy status to other drugs, medicaments and biological substances; Z91.018 Allergy to other foods; Z90.710 Acquired absence of both cervix and uterus; Z86.73 Personal history of transient ischemic attack (TIA), and cerebral infarction without residual deficits; Z86.14 Personal history of Methicillin resistant Staphylococcus aureus infection; Z90.49 Acquired absence of other specified parts of digestive tract

== ENCOUNTER 2018-05-29 13:25 | Emergency (ER) | payer OTHER ==
[~2018-05-29] VITALS: Ht 170.2 cm; Wt 68.0 kg
[~2018-05-29 13:25] MED LIST changes: +AMITRIPTYLINE H25 M2 PO; +MOBIC7.5 MG PO; +OMEPRAZOLE20 M2 PO; +OXYBUTYNIN 5 MG5 M2 PO; +VITAMIN D1000 UNIT PO
[2018-05-29] MEDS ORDERED: NORFLEX100 MG PO (14:58)
[2018-05-29] MEDS ORDERED: MOBIC7.5 MG PO (14:58)
[2018-05-29 15:32] VITALS: BP 166/62
== END 2018-05-29 15:33 | disposition home or self-care (01) ==
LOC: ER 13:25
DX: S16.1XXA Strain of muscle, fascia and tendon at neck level, initial encounter (principal); S39.012A Strain of muscle, fascia and tendon of lower back, initial encounter; S29.012A Strain of muscle and tendon of back wall of thorax, initial encounter; S46.812A Strain of other muscles, fascia and tendons at shoulder and upper arm level, left arm, initial encounter; I10 Essential (primary) hypertension; E78.5 Hyperlipidemia, unspecified; E11.9 Type 2 diabetes mellitus without complications; M19.90 Unspecified osteoarthritis, unspecified site; G47.30 Sleep apnea, unspecified; G43.909 Migraine, unspecified, not intractable, without status migrainosus; M79.7 Fibromyalgia; K21.9 Gastro-esophageal reflux disease without esophagitis; F32.9 Major depressive disorder, single episode, unspecified; Z86.73 Personal history of transient ischemic attack (TIA), and cerebral infarction without residual deficits; Z90.710 Acquired absence of both cervix and uterus; Z86.14 Personal history of Methicillin resistant Staphylococcus aureus infection; Z90.49 Acquired absence of other specified parts of digestive tract; Z88.8 Allergy status to other drugs, medicaments and biological substances; V89.2XXA Person injured in unspecified motor-vehicle accident, traffic, initial encounter; Y93.89 Activity, other specified; Y92.89 Other specified places as the place of occurrence of the external cause; Y99.8 Other external cause status

== ENCOUNTER 2018-07-10 16:55 | Inpatient (IN) | payer OTHER ==
[~2018-07-10] VITALS: Ht 170.2 cm; Wt 98.1 kg
--- NOTE | ~2018-07-10 | HC ---
[facility] [place] [address] CONSULTATION Name: LES ADRYROLAND Sandy Room #: 247-P [facility] IN .R.#: [id number] Admission: 07/10/18 ������������������ Attend Phys: Gary Simental MD Discharge: ������������������ Date of : 49 Report #: [id number] THIS REPORT FOR: //name// CC: Gary Simental DATE OF SERVICE: 07/17/2018 HISTORY OF PRESENT ILLNESS: The patient is a 73-year-old white female with multiple medical comorbidities admitted with chest pain, shortness of breath with exertion. She was diagnosed with coronary artery disease and underwent coronary artery bypass grafting x 4 on 07/13/2018. She has history of chronic dysphagia as well and underwent an EGD with dilation on 07/12/2018. The patient is currently in the intensive care unit. She has bilateral lower extremity weakness felt to be multifactorial with chronic arthritic problems, warranting intermittent knee injections as well as a prior history of diabetic peripheral neuropathy. She also was on significant O2, currently 10 liters. She has significant functional mobility and ADL deficits and we are seeing her in rehabilitation medicine consultation. PAST MEDICAL HISTORY: Includes diabetes mellitus. She has a history of lap band surgery in 2011, bladder surgery, hypertension, hyperlipidemia, insulin-dependent diabetes mellitus, Meniere's disease, obstructive sleep apnea on CPAP, stroke x 3 without residual, bundle branch block, fibromyalgia, GERD, lap band removed. She has regular yearly EGDs with dilatation of her esophagus, history of depression, cholecystectomy, and LINQ replacement. MEDICATIONS: Please see the full medication listing. These include vitamins, herbals, and supplements per report. ALLERGIES: ____ AND TOMATO PLANT. HABITS: No history of tobacco or alcohol abuse. 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 REVIEW OF SYSTEMS: Complains of generalized weakness. Some discomfort as expected over sternal area. No fever or chills. She has the numbness of her feet with her peripheral neuropathy. PHYSICAL EXAMINATION: GENERAL: A 73-year-old pleasant, obese white female in no obvious distress. VITAL SIGNS: Last recorded temperature 98.1, pulse 76, respirations 19, blood pressure 124/64. The patient is alert. HEENT: Appeared to be benign. [address] [address] CONSULTATION Name: LES ROLAND RIDER Room #: 247-P [facility] IN [facility].#: [id number] Admission: 07/10/18 ������������������ Attend Phys: Gary Simental MD Discharge: ������������������ Date of : 49 Report #: [id number] NEUROLOGIC: Cranial nerves grossly intact. Facies are symmetric. She is on nasal prong O2, currently 10 liters. She has a midline sternal incision, which is dressed. Upper extremities revealed functional range of motion, strength is probably grade 4-/5. DTRs are trace to 1. Lower extremity, she does have decreased distal sensation consistent with her peripheral neuropathy. She has chronic knee degenerative arthritic changes. There is no focal calf swelling. I would grade her strength probably a grade 3+/5. DTRs are trace to 1. Functionally, she was having significant knee buckling ____, but is doing a little bit better with transfers as far as sit to stand, still more of a max assist. She tried to take a few steps max assist. She notes she has had some problems with her knees and weakness of both lower extremities, probably that right leg a little more than the left. ASSESSMENT: A 73-year-old white female with the following problem list: 1. Medical complexity with generalized debilitation. 2. Multifactorial gait instability. 3. Coronary artery disease, status post coronary artery bypass graft x on 07/13/2018. 4. Chronic dysphagia, has undergone routine dilation of her esophagus on 07/12/2018. 5. Bilateral knee degenerative arthritis. She has had knee injections in the past. 6. Diabetic peripheral neuropathy. 7. Exogenous obesity. 8. Prior history of lap band surgery. 9. Renal insufficiency. PLAN: Therapies are continuing to work with her and gradually improving her endurance. We will place her on the list for an acute 5-Rochelle inpatient rehabilitation stay as she further medically stabilizes. We will be glad to follow along with you regarding her rehab therapy needs. ��������������������������������������������� ���������������������������������������� By: ��������������������������������������������� 1135 0321 Isaias Murillo MD /nt
--- NOTE | ~2018-07-10 | P ---
[facility] [place] [address] PROCEDURE REPORT Name: LES EDOUARDNAMITAROLAND D Room #: 203-P [facility] IN M.R.#: [id number] Admission: 07/10/18 ������������������ Attend Phys: Gary Simental MD Discharge: ������������������ Date of : 49 Report #: [id number] THIS REPORT FOR: //name// CC: Gary Simental MD INPATIENT UPPER ENDOSCOPY REPORT BRIEF HISTORY: The patient is a 73-year-old woman known to me with recurrent dysphagia. She has had reflux disease and has a LINX in place. She has had dysphagia with both solids and liquids. She has been previously dilated with 52-Macedonian dilator generally with good results. PREOPERATIVE DIAGNOSES: Recurrent dysphagia and reflux disease. POSTOPERATIVE DIAGNOSES: 1. Dysphagia. 2. Diffuse gastritis. MEDICATIONS: Deep sedation with propofol per anesthesia. SPECIMEN: None. ESTIMATED BLOOD LOSS: None. PROCEDURE: EGD and Millan dilation. FINDINGS: Prior to propofol sedation, procedure of upper endoscopy was reviewed with the patient as well as potential risks and its complications. She indicates she understands and desires to proceed. DESCRIPTION OF PROCEDURE: With the patient in left lateral decubitus position, the Olympus video endoscope was inserted in the cervical esophagus under direct vision without difficulty. Examination of this organ through its entire length revealed normal esophageal mucosa down the squamocolumnar junction. No ulcers or erosions were seen. There is no evidence of significant esophagitis. Alex mucosa was seen. A hiatus hernia was not seen. I did not see a stricture or ring. The scope was advanced in the stomach, was examined on end view as well as retroflexed views. There was diffuse erythema throughout the stomach. This has been noted in the past. Previous biopsies have been negative for H. pylori. There were a couple flecks of old blood, but no significant bleeding was seen. Upon retroflexion, no mass lesions were seen. Hiatus hernia was not seen. The pylorus, duodenal bulb and postbulbar duodenal sweep were inspected and noted to be unremarkable. At that point, the scope was slowly withdrawn and careful circumferential views confirmed the above findings. The patient tolerated the procedure well. [facility] [address] [place] [address] PROCEDURE REPORT Name: ROLAND FOREMAN Room #: 203-P [facility] IN [facility].#: [id number] Admission: 07/10/18 ������������������ Attend Phys: Gary Simental MD Discharge: ������������������ Date of : 49 Report #: [id number] Subsequently, she was dilated with passage of a 52-Macedonian Millan dilator and there was no resistance. Following the dilation, the endoscope was reintroduced and there was no evidence of significant mucosal tearing. The scope was withdrawn and the patient tolerated the procedure well. DISPOSITION: The patient dilated as noted above. She is scheduled for cardiac catheterization later today. I do not see evidence of significant injury following dilation with regards to gastrointestinal bleeding in the record label intern. She is to return to see me on an as needed basis for dysphagia. She has had success with dilation in the past. However, she has increasing difficulty, an esophageal manometry may be a consideration. It is also noted that she does have a LINX at her GE junction for gastroesophageal reflux disease. She does not have significant esophagitis today. ��������������������������������������������� ���������������������������������������� By: ��������������������������������������������� 0728 2115 Lele Roberts MD /nt
[~2018-07-10 16:55] MED LIST changes: +NORFLEX100 MG PO
[2018-07-10 16:56] VITALS: BP 169/73
[2018-07-10 17:13] LABS: ABSOLUTE NEUTROPHILS 4.3 thou/uL (1.4-8.2); BASOPHILS 0.7 % (0.0-2.0); EOSINOPHILS 1.9 % (0.0-3.0); HEMATOCRIT 34.7 % (37.0-47.0); HEMOGLOBIN 11.8 gm/dL (12.0-15.0); LYMPHOCYTES 22.3 % (24.0-44.0); MCH 30.7 pg (26.0-34.0); MCV 90.2 fL (80.0-100.0); MONOCYTES 6.5 % (1.0-8.0); PLATELET COUNT 178 thou/uL (150-400); POLYS 68.6 % (36.0-66.0); RBC 3.85 mil/uL (4.20-5.00); RDW 13.2 % (10.5-14.5); WBC 6.3 thou/uL (4.0-11.0)
[2018-07-10 17:21] LABS: ANION GAP 7 mmol/L (7-16); BUN 27 mg/dL (7-18); CALCIUM 10.7 mg/dL (8.5-10.1); CHLORIDE 105 mmol/L (98-107); CO2 26 mmol/L (21-32); CREATININE 1.6 mg/dL (0.6-1.0); GLUCOSE 473 mg/dL (74-106); POTASSIUM 4.5 mmol/L (3.5-5.1); SODIUM 138 mmol/L (136-145)
[2018-07-10 17:30] LABS: TROPONIN-I <0.06 ng/mL (<0.06)
[2018-07-10] MEDS ORDERED: METFORMIN HCL500 MG PO (17:40)
[2018-07-10] MEDS ORDERED: CARAFATE 1 GM TA1 G1 PO (17:41)
[2018-07-10 18:39] VITALS: BP 190/90
[2018-07-10 19:13] VITALS: BP 151/79
[2018-07-10 19:42] VITALS: BP 151/79
[2018-07-10 20:00] VITALS: BP 187/80
[2018-07-10 22:40] VITALS: BP 181/81
[2018-07-10] MEDS ORDERED: LIPITOR 10 MG10 M1 PO (22:56)
[2018-07-11 00:45] VITALS: BP 178/79
[2018-07-11 04:45] VITALS: BP 141/62
[2018-07-11 08:08] VITALS: BP 177/69
--- NOTE | 2018-07-11 08:12 | EKG ---
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1945 Requested By: Eduardo Valiente Order Number: [id number] MD: Grayson Reid Measurements Intervals [place] Rate: 86 P: 77 [place]: 207 QRS: -39 QRSD: 148 T: 125 QT: 416 QTc: 498 Interpretive Statements Sinus rhythm Left bundle branch block Compared to ECG 01/23/2018 15:54:36 Ectopic atrial rhythm no longer present Electronically Signed On 07-11-2018 8:12:10 CDT by Grayson Reid [email or web address] ��������������������������������������������� <ELECTRONICALLY SIGNED> ���������������������������������������� By: Grayson Reid MD ��������������������������������������������� 07/11/18 0812 1713 1713 Grayson Reid MD /EPI
[2018-07-11 12:18] VITALS: BP 165/64
[2018-07-11 15:25] VITALS: BP 171/80
--- NOTE | 2018-07-11 16:53 | 2DMMODE ---
[facility] [address] [place] [address] 2 D/M-MODE ECHOCARDIOGRAM Name: ROLAND FOREMAN Room #: 203-P ADM IN .R.#: [id number] ������������� Admission: 07/10/18 ������������� Attend Phys: Gary Simental, Discharge: ��� ������������� ��� Date of : 49 Date of Service: 07/11/18 1653 �� Report #: [id number] �������� ��������������������������������������������[id number] THIS REPORT FOR: //name// APPROVED REPORT Study performed: 07/11/2018 11:25:11 EXAM: Comprehensive 2D, Doppler, and color-flow Echocardiogram Patient Location: Echo lab Room #: 203 Status: routine BSA: 2.01 HR: 77 bpm BP: 177/69 mmHg Rhythm: NSR Other Information Study Quality: Adequate Indications Diabetes Dyspnea Cardiomyopathy Chest Pain Hypertension/HDD 2D Dimensions RVDd: 31.49 mm IVSd: 15.99 (7-11mm) LVOT Diam: 19.13 (18-24mm) LVDd: 43.80 mm PWd: 14.67 (7-11mm) Ascending Ao: 25.72 (22-36mm) LVDs: 32.26 (25-40mm) Aortic Root: 25.67 mm IVC: 17.00 mm Volumes Left Atrial Volume (Systole) Single Plane 4CH: 34.50 mL Single Plane 2CH: 55.44 mL LA ESV Index: 21.00 mL/m2 Aortic Valve AoV Peak Robert.: 1.55 m/s AO Peak Gr.: 9.61 mmHg LVOT Max P.40 mmHg LVOT Max V: 1.05 m/s HAYLIE Vmax: 1.95 cm2 [facility] [address] [place] [address] 2 D/M-MODE ECHOCARDIOGRAM Name: ROLAND FOREMAN Room #: [facility]#: [id number] ������������� Admission: 07/10/18 ������������� Attend Phys: Gary Simental, Discharge: ��� ������������� ��� Date of : 49 Date of Service: 07/11/18 1653 �� Report #: [id number] �������� ��������������������������������������������[id number] Mitral Valve E/A Ratio: 1.2 MV Decel. Time: 258.63 ms MV E Max Robert.: 1.29 m/s MV A Robert.: 1.10 m/s MV PHT: 75.00 ms IVRT: 156.86 ms Pulmonary Valve PV Peak Robert.: 1.19 m/s PV Peak Gr.: 5.63 mmHg Pulmonary Vein P Vein S: 0.38 m/s P Vein A: 0.17 m/s P Vein D: 0.48 m/s P Vein A Dur.: 83.0 msec P Vein S/D Ratio: 0.79 Tricuspid Valve TR Peak Robert.: 2.66 m/s TR Peak Gr.: 28.21 mmHg PA Pressure: 33.00 mmHg Left Ventricle The left ventricle is normal size. There is global hypokinesis of the left ventricle. Moderate concentric left ventricular hypertrophy. Left ventricular ejection fraction is moderate decreased. LVEF 35%. Mild diastolic dysfunction is present (impaired relaxation pattern). Right Ventricle The right ventricle is normal size. The right ventricular systolic function is normal. Atria The left atrium size is normal. The right atrium size is normal. Aortic Valve The aortic valve is mildly sclerotic. Mild aortic regurgitation. There is no aortic valvular stenosis. Mitral Valve The mitral valve is normal in structure. Mild to moderate mitral regurgitation. No evidence of mitral valve stenosis. Tricuspid Valve The tricuspid valve is normal in structure. There is trace tricuspid [facility] [address] [place] [address] 2 D/M-MODE ECHOCARDIOGRAM Name: ROLAND FOREMAN Room #: 203-P [facility] IN M.R.#: [id number] ������������� Admission: 07/10/18 ������������� Attend Phys: Gary Simental, Discharge: ��� ������������� ��� Date of : 49 Date of Service: 07/11/18 1653 �� Report #: [id number] �������� ��������������������������������������������[id number] regurgitation. Estimated PAP 33 mmHg. There is mild pulmonary hypertension. Pulmonic Valve The pulmonary valve is normal in structure. Trace pulmonic regurgitation. Great Vessels The aortic root is normal in size. IVC is normal in size and collapses >50% with inspiration. Pericardium There is no pericardial effusion. <Conclusion> Left ventricular ejection fraction is moderate decreased. There is global hypokinesis of the left ventricle. LVEF 35%. The aortic valve is mildly sclerotic. Mild aortic or insufficiency The mitral valve is normal in structure. Mild to moderate mitral regurgitation. There is trace tricuspid regurgitation. Estimated pulmonary artery pressure of 33 mmHg. There is no pericardial effusion. ��������������������������������������������� <ELECTRONICALLY SIGNED> ���������������������������������������� By: Kaveh Chicas MD, FACC ��������������������������������������������� 07/11/18 [phone] 52 Kaveh Chicas MD, FACC /INF
[2018-07-11 20:10] VITALS: BP 155/85
[2018-07-12] VITALS (9 sets, daily range): BP systolic 128–176; BP diastolic 62–114
[2018-07-12 04:41] LABS: CALCIUM 10.3 mg/dL (8.5-10.1); CREATININE 1.2 mg/dL (0.6-1.0); POTASSIUM 4.9 mmol/L (3.5-5.1)
[2018-07-12 04:46] LABS: HEMATOCRIT 33.8 % (37.0-47.0); HEMOGLOBIN 11.4 gm/dL (12.0-15.0); MCH 30.4 pg (26.0-34.0); MCHC 33.9 g/dL (28.0-37.0); MCV 89.9 fL (80.0-100.0); RBC 3.76 mil/uL (4.20-5.00); RDW 13.3 % (10.5-14.5); WBC 6.2 thou/uL (4.0-11.0)
--- NOTE | 2018-07-12 09:24 | CATHLAB ---
[facility] [place] [address] INVASIVE PROCEDURE REPORT Name: ROLAND FOREMAN Room #: 203-P [facility] IN [facility].#: [id number] ������������� Admission: 07/10/18 ������������� Attend Phys: Gary Simental, Discharge: ��� ������������� ��� Date of : 49 Date of Service: 07/12/18 0924 �� Report #: [id number] �������� ��������������������������������������������[id number] THIS REPORT FOR: //name// APPROVED REPORT Study performed: 07/12/2018 08:18:53 Patient Details The patient is a 73 year-old female Event Personnel Kaveh Chicas Box Spring Maker, Deana Dumont Monitor, Mikal Wilkinson RT(R)(CV) , , Kojo Salamanca RTR Scrub, Klaus Borrero RN Abstract Maker Procedures Performed Left Heart Cath w/or w/o Coronaries [id number] [facility] Indication Chest pain Risk Factors Arterial Hypertension, Hypercholesterolemia, Diabetes Procedure Narrative The Right Groin^ was infiltrated with subcutaneous anesthesia. A PINNACLE 6FR Sheath #[id number] sheath was inserted into the RFA^. Coronary angiography was performed using coronary diagnostic catheters. The right coronary system was accessed and visualized with a JR4 catheter. The left coronary system was accessed and visualized with a JL4 catheter. The left ventricle was accessed and visualized with a PIGTAIL catheter. Left ventricular/Aortic Valve gradient assessed via catheter pullback. Left ventriculogram was performed in CARRASCO projection. Closure device was deployed with a Fr MYNXGRIP 6/7F #[id number]. The patient tolerated the procedure well and there were no complications associated with the procedure. There was no hematoma. Intraoperative Conscious Sedation Sedation start time: 813 Case end Time: 843 Fentanyl 50 mcg Versed 1 mg Fluoro Time: 1.60 minutes Dose: DAP 5329.00 cGycm2 710 mGy [facility] [place] [address] INVASIVE PROCEDURE REPORT Name: ROLAND FOREMAN Room #: 203-P [facility] IN .R.#: [id number] ������������� Admission: 07/10/18 ������������� Attend Phys: Gary Simental, Discharge: ��� ������������� ��� Date of : 49 Date of Service: 07/12/18 0924 �� Report #: [id number] �������� ��������������������������������������������[id number] Contrast Type and Amount: Visipaque 110 ml Diagnostic Cath Left Main Normal left main LAD 80% proximal LAD stenosis involving the origin of the first diagonal branch Diagonal 1 75-80% ostial first diagonal branch stenosis. This vessel actually appeared considerably larger on a prior angiogram Circumflex 85% mid circumflex stenosis just after a large first marginal branch OM1 Mild proximal OM1 plaquing OM2 Angiographically normal second marginal branch Right Coronary 75% proximal right coronary artery stenosis R PDA Normal, large posterior descending branch RPLV Normal moderate size posterolateral branch Left Ventriculography The left ventricle is normal in size with abnormal contractility. The left ventricular ejection fraction is estimated to be 45%. Left ventricular wall motion abnormalities are not present. There is no mitral insufficiency. Hemodynamics The aortic pressure is 183/72 mmHg with a mean of 117 mmHg. The left ventricular pressure is 185/13 mmHg with a mean of mmHg. The left ventricular end diastolic pressure is 26 mmHg. Conclusion 1. Mild-moderate left ventricular dysfunction. EF 45% 2. Normal left main 3. Severe 3v coronary artery disease Recommendations Cardiac Rehabilitation Referral CABG ��������������������������������������������� <ELECTRONICALLY SIGNED> ���������������������������������������� By: Kaveh Chicas MD, FACC ��������������������������������������������� 07/12/18923 3 3 Kaveh Chicas MD, FACC /INF
[2018-07-12 11:22] LABS: BASOPHILS 0.4 % (0.0-2.0); EOSINOPHILS 2.3 % (0.0-3.0); HEMATOCRIT 31.6 % (37.0-47.0); HEMOGLOBIN 10.9 gm/dL (12.0-15.0); MCH 30.9 pg (26.0-34.0); MCHC 34.5 g/dL (28.0-37.0); MCV 89.7 fL (80.0-100.0); MONOCYTES 4.2 % (1.0-8.0); PLATELET COUNT 167 thou/uL (150-400); POLYS 76.1 % (36.0-66.0); RBC 3.52 mil/uL (4.20-5.00); RDW 13.1 % (10.5-14.5); WBC 6.6 thou/uL (4.0-11.0)
[2018-07-12 11:36] LABS: APTT 26.8 Seconds (24.5-32.8); PROTIME 10.8 Seconds (9.3-11.4)
[2018-07-12 11:37] LABS: CREATININE 1.2 mg/dL (0.6-1.0); POTASSIUM 4.6 mmol/L (3.5-5.1)
[2018-07-12 11:44] LABS: TOTAL BILIRUBIN 0.3 mg/dL (<0.1-1.0); TOTAL PROTEIN 6.3 g/dL (6.4-8.2)
[2018-07-12 12:59] LABS: URINE BILIRUBIN NEGATIVE (Negative); URINE BLOOD 1+ (Negative); URINE CLARITY CLEAR; URINE COLOR YELLOW; URINE GLUCOSE-RANDOM* 2+ (Negative); URINE KETONES NEGATIVE (Negative); URINE LEUKOCYTES-REFLEX NEGATIVE (Negative); URINE NITRITE-REFLEX NEGATIVE (Negative); URINE PROTEIN (DIPSTICK) TRACE (Negative); URINE SPECIFIC GRAVITY 1.015 (1.005-1.035); URINE UROBILINOGEN 0.2 E.U./dl (0.2-1.0)
[2018-07-12 13:11] LABS: SQUAMOUS 4-10 Moderate /LPF (0-3); URINE WBC-REFLEX 0-5 Rare /HPF (0-5)
[2018-07-12 13:12] LABS: CASTS None Seen /LPF (None Seen); CRYSTALS None Seen /LPF (None Seen); URINE RBC 0-2 Rare /HPF (0-2)
[2018-07-13] VITALS (10 sets, daily range): BP systolic 102–164; BP diastolic 43–71
[2018-07-13 04:55] LABS: HEMATOCRIT 32.9 % (37.0-47.0); HEMOGLOBIN 11.3 gm/dL (12.0-15.0); MCH 30.4 pg (26.0-34.0); MCHC 34.2 g/dL (28.0-37.0); MCV 88.7 fL (80.0-100.0); RBC 3.71 mil/uL (4.20-5.00); RDW 13.2 % (10.5-14.5); WBC 8.7 thou/uL (4.0-11.0)
[2018-07-13 05:05] LABS: CALCIUM 10.1 mg/dL (8.5-10.1); CREATININE 1.1 mg/dL (0.6-1.0); POTASSIUM 3.9 mmol/L (3.5-5.1)
[2018-07-13 10:10] LABS: GLYCOHEMOGLOBIN (HGB A1C) 10.7 % (4.8-5.6)
[2018-07-13 15:26] LABS: HEMATOCRIT 20.9 % (37.0-47.0); MCH 30.2 pg (26.0-34.0); MCHC 34.5 g/dL (28.0-37.0); MCV 87.6 fL (80.0-100.0); RBC 2.38 mil/uL (4.20-5.00); RDW 13.6 % (10.5-14.5); WBC 4.8 thou/uL (4.0-11.0)
[2018-07-13 15:31] LABS: HEMOGLOBIN 7.2 gm/dL (12.0-15.0)
[2018-07-13 15:57] LABS: APTT 29.6 Seconds (24.5-32.8); PROTIME 16.7 Seconds (9.3-11.4)
[2018-07-13 15:59] LABS: INR 1.6
[2018-07-13 16:29] LABS: POC BE -1 mmol/L (-2.0 to +3.0); POC CA IONIZED 4.8 mg/dL (4.5-5.3); POC GLUCOSE 145 mg/dL (70-99); POC HCO3 24.1 mmol/L (22.0-26.0); POC HEMOGLOBIN 6.8 g/dL (12.0-15.0); POC SODIUM 137 mmol/L (136-145); POC pCO2 40.8 mmHg (35.0-45.0); POC pH 7.379 (7.360-7.450)
[2018-07-13 16:29] LABS: POC BE 2 mmol/L (-2.0 to +3.0); POC CA IONIZED 5.3 mg/dL (4.5-5.3); POC GLUCOSE 167 mg/dL (70-99); POC HCO3 25.2 mmol/L (22.0-26.0); POC HEMOGLOBIN 8.8 g/dL (12.0-15.0); POC POTASSIUM 4.3 mmol/L (3.5-5.1); POC SODIUM 138 mmol/L (136-145); POC pH 7.479 (7.360-7.450)
[2018-07-13 16:29] LABS: POC BE -4 mmol/L (-2.0 to +3.0); POC CA IONIZED 4.8 mg/dL (4.5-5.3); POC GLUCOSE 152 mg/dL (70-99); POC HCO3 20.3 mmol/L (22.0-26.0); POC HEMOGLOBIN 6.8 g/dL (12.0-15.0); POC POTASSIUM 4.2 mmol/L (3.5-5.1); POC SODIUM 138 mmol/L (136-145); POC pCO2 30.2 mmHg (35.0-45.0); POC pH 7.435 (7.360-7.450)
[2018-07-13 16:29] LABS: POC BE -3 mmol/L (-2.0 to +3.0); POC CA IONIZED 5.3 mg/dL (4.5-5.3); POC GLUCOSE 129 mg/dL (70-99); POC HEMOGLOBIN 9.2 g/dL (12.0-15.0); POC SODIUM 139 mmol/L (136-145); POC pCO2 31.7 mmHg (35.0-45.0); POC pH 7.428 (7.360-7.450)
[2018-07-13 16:29] LABS: POC BE -2 mmol/L (-2.0 to +3.0); POC CA IONIZED 5.2 mg/dL (4.5-5.3); POC GLUCOSE 151 mg/dL (70-99); POC HCO3 22.4 mmol/L (22.0-26.0); POC HEMOGLOBIN 7.8 g/dL (12.0-15.0); POC SODIUM 138 mmol/L (136-145); POC pCO2 31.7 mmHg (35.0-45.0); POC pH 7.457 (7.360-7.450)
[2018-07-13 16:29] LABS: POC BE 1 mmol/L (-2.0 to +3.0); POC CA IONIZED 4.5 mg/dL (4.5-5.3); POC GLUCOSE 153 mg/dL (70-99); POC HCO3 24.4 mmol/L (22.0-26.0); POC HEMOGLOBIN 6.8 g/dL (12.0-15.0); POC POTASSIUM 4.2 mmol/L (3.5-5.1); POC SODIUM 136 mmol/L (136-145); POC pCO2 31.6 mmHg (35.0-45.0); POC pH 7.496 (7.360-7.450)
[2018-07-13 16:29] LABS: POC BE 0 mmol/L (-2.0 to +3.0); POC CA IONIZED 4.8 mg/dL (4.5-5.3); POC GLUCOSE 148 mg/dL (70-99); POC HCO3 24.4 mmol/L (22.0-26.0); POC HEMOGLOBIN 6.1 g/dL (12.0-15.0); POC POTASSIUM 4.7 mmol/L (3.5-5.1); POC SODIUM 137 mmol/L (136-145); POC pCO2 38.1 mmHg (35.0-45.0); POC pH 7.415 (7.360-7.450)
[2018-07-13 16:29] LABS: POC BE -2 mmol/L (-2.0 to +3.0); POC CA IONIZED 5.3 mg/dL (4.5-5.3); POC GLUCOSE 146 mg/dL (70-99); POC HCO3 21.8 mmol/L (22.0-26.0); POC HEMOGLOBIN 6.8 g/dL (12.0-15.0); POC POTASSIUM 4.5 mmol/L (3.5-5.1); POC SODIUM 138 mmol/L (136-145); POC pCO2 31.7 mmHg (35.0-45.0); POC pH 7.446 (7.360-7.450)
[2018-07-13 17:20] LABS: BE(vivo) -4.3 mmol/L (-2 to +3); HCO3 20.6 mmol/L (22.0-26.0); PCO2 37.3 mmHg (35.0-45.0); PO2 77.1 mmHg (80.0-100.0)
[2018-07-13 17:28] LABS: CALCIUM 8.9 mg/dL (8.5-10.1); CREATININE 1.2 mg/dL (0.6-1.0); MAGNESIUM 2.2 mg/dL (1.8-2.4)
--- NOTE | 2018-07-13 19:09 | EKG ---
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: uriel : 1945 Requested By: Bret Shaikh Order Number: [id number] MD: Jonathan Stacy Measurements Intervals [place] Rate: 88 P: 0 RI: 196 QRS: -51 QRSD: 138 T: 139 QT: 425 QTc: 515 Interpretive Statements Sinus rhythm Left bundle branch block Compared to ECG 07/10/2018 17:13:47 No significant changes Electronically Signed On 07-13-2018 19:09:43 CDT by Jonathan Stacy [email or web address] ��������������������������������������������� <ELECTRONICALLY SIGNED> ���������������������������������������� By: Jonathan Stacy MD ��������������������������������������������� 07/13/18 1909 1750 1750 Jonathan Stacy MD /EPI
[2018-07-14 01:26] LABS: BE(vivo) -5.1 mmol/L (-2 to +3); PCO2 32.2 mmHg (35.0-45.0); PO2 71.4 mmHg (80.0-100.0); pH 7.388 (7.360-7.450); sO2 94.4 % (92.0-98.0)
[2018-07-14 06:04] LABS: HEMATOCRIT 33.2 % (37.0-47.0); MCH 29.9 pg (26.0-34.0); MCHC 33.9 g/dL (28.0-37.0); MCV 88.3 fL (80.0-100.0); RBC 3.76 mil/uL (4.20-5.00); WBC 14.2 thou/uL (4.0-11.0)
[2018-07-14 06:05] LABS: HEMOGLOBIN 11.2 gm/dL (12.0-15.0)
[2018-07-14 06:17] LABS: CALCIUM 9.4 mg/dL (8.5-10.1); CREATININE 1.5 mg/dL (0.6-1.0); MAGNESIUM 2.4 mg/dL (1.8-2.4); POTASSIUM 4.4 mmol/L (3.5-5.1)
[2018-07-15 05:11] LABS: BE(vivo) -8.1 mmol/L (-2 to +3); HCO3 20.6 mmol/L (22.0-26.0); PCO2 57.9 mmHg (35.0-45.0); PO2 61.1 mmHg (80.0-100.0); sO2 84.3 % (92.0-98.0)
[2018-07-15 05:39] LABS: HEMATOCRIT 29.5 % (37.0-47.0); MCH 30.5 pg (26.0-34.0); MCV 89.8 fL (80.0-100.0); RBC 3.29 mil/uL (4.20-5.00); RDW 14.1 % (10.5-14.5); WBC 11.6 thou/uL (4.0-11.0)
[2018-07-15 06:03] LABS: CALCIUM 9.7 mg/dL (8.5-10.1); CREATININE 2.1 mg/dL (0.6-1.0); POTASSIUM 4.8 mmol/L (3.5-5.1)
[2018-07-15 09:10] LABS: URINE CREATININE-RANDOM* 174.8 mg/dL
[2018-07-15 09:12] LABS: CREATININE 2.1 mg/dL (0.6-1.0); POTASSIUM 4.8 mmol/L (3.5-5.1)
[2018-07-16] VITALS (9 sets, daily range): BP systolic 109–126; BP diastolic 48–91
--- NOTE | 2018-07-16 08:37 | EKG ---
[address] [address] ELECTROCARDIOGRAM REPORT Name: ROLAND FOREMAN Room #: [address] [place] [address] IN ..#: [id number] ������������������ Admission: 07/10/18 ������������������ Attend Phys: Gary Simental MD Discharge: ������������������ Date of : 49 Report #: [id number] ����������������������������������������������������������������� [id number] THIS REPORT FOR: //name// [facility] Test Date: 2018-07-14 Test Time: 07:51:20 Pat Name: ROLAND SALDANA REJIepartment: Room: [facility] Gender: F Director Of Reservations: uriel : 1945 Requested By: Bret Shaikh Order Number: [id number] MD: Grayson Reid Measurements Intervals [place] Rate: 77 P: 58 [place]: 166 QRS: -43 QRSD: 138 T: 127 QT: 414 QTc: 469 Interpretive Statements Sinus rhythm Left bundle branch block Compared to ECG 07/13/2018 17:50:27 No significant changes Electronically Signed On 07-16-2018 8:36:59 CDT by Grayson Reid [email or web address] ��������������������������������������������� <ELECTRONICALLY SIGNED> ���������������������������������������� By: Grayson Reid MD ��������������������������������������������� 07/16/18 0836 0751 0751 Grayson Reid MD /EPI
[2018-07-16 08:50] LABS: CREATININE 1.9 mg/dL (0.6-1.0); POTASSIUM 4.5 mmol/L (3.5-5.1)
[2018-07-16 10:04] LABS: POC BE 1 mmol/L (-2.0 to +3.0); POC GLUCOSE 149 mg/dL (70-99); POC HCO3 24.7 mmol/L (22.0-26.0); POC HEMOGLOBIN 6.1 g/dL (12.0-15.0); POC SODIUM 137 mmol/L (136-145); POC pCO2 34.2 mmHg (35.0-45.0); POC pH 7.468 (7.360-7.450)
[2018-07-17] VITALS (22 sets, daily range): BP systolic 101–152; BP diastolic 46–87
[2018-07-17 05:45] LABS: HEMATOCRIT 28.8 % (37.0-47.0); HEMOGLOBIN 9.7 gm/dL (12.0-15.0); MCH 30.3 pg (26.0-34.0); MCHC 33.7 g/dL (28.0-37.0); MCV 89.8 fL (80.0-100.0); RBC 3.21 mil/uL (4.20-5.00); RDW 13.4 % (10.5-14.5); WBC 7.6 thou/uL (4.0-11.0)
[2018-07-17 05:59] LABS: CALCIUM 10.2 mg/dL (8.5-10.1); CREATININE 1.9 mg/dL (0.6-1.0); POTASSIUM 4.1 mmol/L (3.5-5.1)
--- NOTE | 2018-07-17 09:19 | EKG ---
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: Darrick HURT : 1945 Requested By: Lele Waller Order Number: [id number] MD: Kaveh Chicas Measurements Intervals [place] Rate: 71 P: 69 SC: 186 QRS: -22 QRSD: 150 T: 138 QT: 442 QTc: 481 Interpretive Statements Sinus rhythm Left bundle branch block Compared to ECG 07/14/2018 07:51:20 No significant changes Electronically Signed On 07-17-2018 9:19:16 CDT by Kaveh Chicas [email or web address] ��������������������������������������������� <ELECTRONICALLY SIGNED> ���������������������������������������� By: Kaveh Chicas MD, [facility] ��������������������������������������������� 07/17/18918 0727 6 Kaveh Chicas MD, [facility] /EPI
[2018-07-18] VITALS (13 sets, daily range): BP systolic 111–170; BP diastolic 35–70
[2018-07-18 05:54] LABS: CALCIUM 10.7 mg/dL (8.5-10.1); CREATININE 1.5 mg/dL (0.6-1.0); POTASSIUM 4.8 mmol/L (3.5-5.1)
[2018-07-18] MEDS ORDERED: FERREX 150 PLU1 EAC1 PO (07:45)
[2018-07-18] MEDS ORDERED: ALBUTEROL2.5 MG/0.5 INH (07:45)
[2018-07-18] MEDS ORDERED: PACERONE 200 M200 M1 PO (07:46)
[2018-07-18] MEDS ORDERED: COREG6.25 MG PO (07:46)
[2018-07-18] MEDS ORDERED: BENICAR20 MG PO (07:47)
[2018-07-18] MEDS ORDERED: AMLODIPINE BESYL5 M1 PO (07:47)
[2018-07-18] MEDS ORDERED: ALDACTONE50 MG PO (07:47)
[2018-07-18] MEDS ORDERED: LANTUS100 UNIT/M SUBQ (07:48)
[2018-07-18] MEDS ORDERED: AMITRIPTYLINE H25 M2 PO (07:48)
[2018-07-18] MEDS ORDERED: NOVOLOG100 UNIT/1 SUBQ (07:48)
[2018-07-18] MEDS ORDERED: MELATONIN1 MG PO (07:49)
[2018-07-18] MEDS ORDERED: MUPIROCIN22 GM NASAL (07:49)
--- NOTE | 2018-07-19 07:59 | HC ---
[facility] [place] [address] CONSULTATION Name: ROLAND FOREMAN Room #: 247-P [facility] IN ..#: [id number] Admission: 07/10/18 ������������������ Attend Phys: Gary Simental MD Discharge: 07/18/18 ������������������ Date of : [birth year] Report #: [id number] THIS REPORT FOR: //name// CC: Gary Simental DATE OF SERVICE: 07/12/2018 We were asked by Dr. Chicas to see the patient. The patient is a 73-year-old with progressive exertional angina. Cardiac catheterization today shows important 3-vessel coronary disease. Left ventricular function mildly reduced at 45%. LV gram shows no mitral incompetence. PAST MEDICAL HISTORY: Significant for multiple medical problems including diabetes mellitus, hypertension, hyperlipidemia, Meniere's, arthritis. MEDICATIONS: List is extensive and includes amitriptyline, Norvasc, aspirin, Lipitor, carvedilol, Lasix, [place], insulin, irbesartan, meloxicam, metformin, methylprednisolone, oxybutynin, potassium, sucralfate, venlafaxine. ALLERGIES: ANAPHYLAXIS TO WOOL AND TOMATO. FAMILY HISTORY: Mother with pulmonary embolism. Father with coronary disease. The patient also has had a daughter who had an infarct and at age 41. REVIEW OF SYSTEMS: CONSTITUTIONAL: Admits to fatigue. HEENT: Admits to daily headache. Denies vertigo, hearing problems. RESPIRATORY: Admits to shortness of breath. Two pillow orthopnea, cough. CARDIAC: Admits to chest pain, jaw pain, arm pain. SKIN: Denies rash or infection. ENDOCRINE: Admits to cold feet at night. GASTROINTESTINAL: Denies nausea, vomiting, blood in stool. GENITOURINARY: Admits to frequency. Denies dysuria or hematuria. NEUROLOGIC: Admits to peripheral neuropathy. Denies seizures. PSYCHIATRIC: Admits to depression. Denies hallucinations. MUSCULOSKELETAL: Admits to joint pain. Denies swelling and stiffness. IMMUNOLOGIC: Denies lupoid rash, rheumatoid arthritides. PHYSICAL EXAMINATION: GENERAL: The patient is lying in bed, appearing comfortable. VITAL SIGNS: Blood pressure 166/83, heart rate 74, respiratory rate 18, temperature 98.5, O2 sat 96. HEENT: The patient appears comfortable, has an endomorphic habitus. [facility] [address] [place] [address] CONSULTATION Name: ROLAND FOREMAN Room #: 247-P [facility] IN [facility]#: [id number] Admission: 07/10/18 ������������������ Attend Phys: Gary Simental MD Discharge: 07/18/18 ������������������ Date of : 49 Report #: [id number] HEENT: Pupils equal, round. Normocephalic. Gaze conjugate. NECK: No mass, no bruit. CHEST: Clear. HEART: Rhythm regular, no murmur. ABDOMEN: Soft, no mass. EXTREMITIES: No clubbing, cyanosis or edema. No obvious saphenous vein problems. NEUROLOGIC: No motor or sensory dysfunction. PSYCHIATRIC: Shows insight into problem. Affect is a bit flat, but answers questions appropriately. IMPRESSION: The patient has important 3-vessel coronary disease with somewhat reduced ventricular function. Risks and details of coronary bypass surgery were discussed. Options and alternatives were reviewed. The patient understands all of this and wishes to proceed. We will try to arrange surgery for tomorrow. Thank you for the consult. ��������������������������������������������� <ELECTRONICALLY SIGNED> ���������������������������������������� By: Lele Waller MD ��������������������������������������������� 07/19/18 0759 1224 0409 Lele Waller MD /nt
--- NOTE | 2018-07-19 07:59 | O ---
[facility] [place] [place] [address] OPERATIVE REPORT Name: ROLAND FOREMAN Sandy Room #: 247-P [facility] IN ..#: [id number] Admission: 07/10/18 ������������������ Attend Phys: Gary Simental MD Discharge: 07/18/18 ������������������ Date of : 49 Report #: [id number] THIS REPORT FOR: //name// CC: Gary Simental DATE OF SERVICE: 07/13/2018 PREOPERATIVE DIAGNOSIS: Coronary artery disease. POSTOPERATIVE DIAGNOSIS: Coronary artery disease. OPERATION: Coronary artery bypass x 4 including left internal mammary artery to left anterior descending artery, saphenous vein to diagonal and second marginal arteries and saphenous vein to posterior descending artery and endoscopic harvest, right greater saphenous vein. SURGEON: Lele Waller MD. FOREMAN/PROJECT MANAGER: ALCIDES Sanders. ANESTHESIA: General. INDICATIONS: The patient is a 73-year-old with progressive angina. Catheterization by Dr. Chicas shows severe 3-vessel coronary disease with somewhat reduced ventricular function. FINDINGS AND TECHNIQUE: After general anesthesia was established, saphenous vein was harvested using an endoscopic approach from the right leg and prepared for use as a conduit. Exposure was obtained through median sternotomy. Left internal mammary artery was harvested. Pericardial well was made. Cannulation sutures were placed. Heparin was given. Aorta was cannulated. Right atrium was cannulated. Cardioplegia needle was positioned in the aortic root. Retrograde cardioplegic catheter was placed in the coronary sinus. Cardiopulmonary bypass was established. The aorta was cross clamped. Antegrade and retrograde cardioplegia were given. Ice was poured in the pericardial well. Heart was stopped. During electromechanical arrest, the distal anastomoses were performed and end-to-side anastomosis was made between vein and the posterior descending artery. Cold cardioplegia was given. Separate segment of vein was sewn in end-to-side fashion to the second marginal artery. Cold cardioplegia was given. The same segment of vein was sewn in end-to-side fashion to the first diagonal artery. Cold cardioplegia was given. Left internal mammary artery was sewn in end-to-side fashion to the left anterior descending artery. Cold cardioplegia [facility] [address] [place] [address] OPERATIVE REPORT Name: ROLAND FOREMAN Room #: 247-P [facility] IN [facility].#: [id number] Admission: 07/10/18 ������������������ Attend Phys: Gary Simental MD Discharge: 07/18/18 ������������������ Date of : 49 Report #: [id number] was given. Two proximal anastomoses were performed. When these were complete, warm retrograde cardioplegia was given followed by warm continuous blood to the coronary sinus. When this infusion was complete, the crossclamp was removed, de-airing maneuvers were performed. The anastomoses were inspected and found to be satisfactory. As the patient warmed, nice cardiac activity resumed, chest tubes and pacing wires were placed, a marker was placed around the proximal anastomoses. When the patient was warm, he was weaned from cardiopulmonary bypass. Venous cannula was removed. Protamine was given, the aortic cannula was removed. Flows were measured in the bypass grafts. When hemostasis was satisfactory, chest was irrigated with antibiotic solution and closed in the usual fashion. The patient was taken to the Intensive Care Unit in satisfactory condition having tolerated the procedure well. All counts reported as correct. ��������������������������������������������� <ELECTRONICALLY SIGNED> ���������������������������������������� By: Lele Waller MD ��������������������������������������������� 07/19/18 0759 1734 2035 Lele Waller MD /nt
== END 2018-07-18 16:45 | DRG 233 ==
LOC: ER 16:55 → TBA 18:13 → 2N 18:13 → EROBS 18:13 → 2N 19:44 → TBA 07-13 09:23 → ICU 07-13 16:41 → ENTRNSPT 07-18 15:27 → ICU 07-18 16:45
PROVIDERS: Emergency Medicine; Internal Medicine; Nurse Practitioner Gerontology; Physician Assistant; Surgery Vascular Surgery; ADMIT Family Medicine
DX: I25.110 Atherosclerotic heart disease of native coronary artery with unstable angina pectoris (principal); N17.0 Acute kidney failure with tubular necrosis; I50.22 Chronic systolic (congestive) heart failure; R13.10 Dysphagia, unspecified; I10 Essential (primary) hypertension; E78.5 Hyperlipidemia, unspecified; M19.90 Unspecified osteoarthritis, unspecified site; M79.7 Fibromyalgia; K21.9 Gastro-esophageal reflux disease without esophagitis; G47.33 Obstructive sleep apnea (adult) (pediatric); R26.9 Unspecified abnormalities of gait and mobility; E66.9 Obesity, unspecified; K29.70 Gastritis, unspecified, without bleeding; I44.7 Left bundle-branch block, unspecified; I42.9 Cardiomyopathy, unspecified; E11.40 Type 2 diabetes mellitus with diabetic neuropathy, unspecified; G47.00 Insomnia, unspecified; F41.9 Anxiety disorder, unspecified; K22.2 Esophageal obstruction; Z90.710 Acquired absence of both cervix and uterus; Z86.73 Personal history of transient ischemic attack (TIA), and cerebral infarction without residual deficits; Z86.14 Personal history of Methicillin resistant Staphylococcus aureus infection; Z90.49 Acquired absence of other specified parts of digestive tract; Z79.4 Long term (current) use of insulin; Z79.899 Other long term (current) drug therapy; Z79.82 Long term (current) use of aspirin; Z88.8 Allergy status to other drugs, medicaments and biological substances; Z91.018 Allergy to other foods; Z82.49 Family history of ischemic heart disease and other diseases of the circulatory system; Z68.33 Body mass index [BMI] 33.0-33.9, adult; Z91.09 Other allergy status, other than to drugs and biological substances
CPT/HCPCS: 10078; 10081; 10203; 47000; 47001; 47002; 47297; 48888; 50010; 50011; 50249; 50409; 50456; 50498; 50668; 51301; 52131; 52259; 52314; 53327; 53358; 54118; 55415; 56455; 56524; 56525; 56526; 56527; 56528; 56531; 56534; 56668; 56760; 56898; 57093; 57242; 62110; 62900; 62950

== ENCOUNTER 2018-07-18 13:42 | Inpatient (IN) | payer OTHER ==
[~2018-07-18] VITALS: Ht 170.2 cm; Wt 89.8 kg
[~2018-07-18 13:42] MED LIST changes: +ALBUTEROL2.5 MG/0.5 INH; +AMLODIPINE BESYL5 M1 PO; +BENICAR20 MG PO; +COREG6.25 MG PO; +FERREX 150 PLU1 EAC1 PO; +LANTUS100 UNIT/M SUBQ; +LIPITOR 10 MG10 M1 PO; +MELATONIN1 MG PO; +METFORMIN HCL500 MG PO; +MUPIROCIN22 GM NASAL; +NOVOLOG100 UNIT/1 SUBQ; +PACERONE 200 M200 M1 PO
[2018-07-18 15:07] VITALS: BP 126/69
[2018-07-18 17:32] VITALS: BP 177/79
--- NOTE | 2018-07-18 19:09 | NUR ---
PT ARRIVED AT 1630. VITALS STABLE. PT C/O PAIN IN RLE AND STERNAL PAIN. STERNAL INCISION REMAINS INTACT AND DRY, STERNAL PRECAUTIONS MAINTAINED. INCISION IN RLE REMAINS DRY AND INTACT. PT IS ALERT AND ORIENTED*4, CALM WITH FLAT AFFECT. EDEMA IN BLE, EXTREMITIES ELEVATED. REDNESS AROUND SACRAL AREA NOTED, BARRIER CREAM APPLIED WITH EVERY JUSTICE CARE. PT C/O WEAKNESS AROUND THE KNEES, UP WITH 1-2 PIVOT TRANSFERS AND TOLERATED WELL. Q1H VISUAL CHECKS. CALL LIGHT WITHIN REACH. FALL PRECAUTIONS IN PLACE, BOYFRIEND AT BEDSIDE.
[2018-07-18 19:22] VITALS: BP 186/60
--- NOTE | 2018-07-18 23:26 | NUR ---
PT ASSESSMENT COMPLETED. VITAL SIGNS COMPLETED. CONSENTS SIGNED. STERNAL DRESSING AND WOUND VAC DRY AND INTACT. DSGS ON LEFT LEG INTACT. 2L NC AT HS BECAUSE PT REFUSES BIPAP. ASST WITH REPOSITION FOR COMFORT. VOIDING LARGE AMOUNT OF YELLOW URINE. SLEEPING WELL. WILL CONTINUE TO MONITOR FREQUENTLY.
[2018-07-18 23:58] VITALS: BP 155/60
[2018-07-19 06:38] LABS: HEMATOCRIT 31.2 % (37.0-47.0); HEMOGLOBIN 10.6 gm/dL (12.0-15.0); MCH 30.1 pg (26.0-34.0); MCHC 33.9 g/dL (28.0-37.0); MCV 88.6 fL (80.0-100.0); RBC 3.52 mil/uL (4.20-5.00); RDW 13.7 % (10.5-14.5); WBC 8.3 thou/uL (4.0-11.0)
[2018-07-19 06:47] LABS: CALCIUM 11.2 mg/dL (8.5-10.1); CREATININE 1.3 mg/dL (0.6-1.0); POTASSIUM 4.5 mmol/L (3.5-5.1)
[2018-07-19 10:11] VITALS: BP 187/71
[2018-07-19 11:04] VITALS: BP 162/61
--- NOTE | 2018-07-19 12:03 | NUR ---
chart review, cm visited with pt at bedside, pt on isolation precaution. pt has her sister and niece visiting as well. noted pt on o2 per nasal cannula. intro to cm, transition of care, and team meetings. per chart pt independent prior to hospital. lives with sig other. 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 will cont following as needed for dc needs.
--- NOTE | 2018-07-19 12:57 | NUR ---
ASSUMED CARES AT 0700. PT AWAKE, ALERT AND ORIENTED*4. C/O MILD PAIN ON RIGHT LEG, DENIES STERNAL PAIN/DISCOMFORT. STERNAL INCISION REMAINS DRY AND INTACT, WOUND VAC IN PLACE. STERNAL PRECAUTIONS MAINTAINED. INCISION ON RIGHT LEG REMAINS DRY AND INTACT. INCISION ON RIGHT INNER THIGH DRY AND INTACT, DRESSING CHANGED. PT CONTINUES TO HAVE BLE WEAKNESS, UP WITH 2 MAX ASSIST PIVOT TRANSFERS. CONTACT ISOLATION MAINTAINED. BP ELEVATED THIS AM, DRILLING INSPECTOR NOTIFIED AND ORDERS RECEIVED. PT IN BED RESTING BTN THERAPIES. Q1H VISUAL CHECKS. CALL LIGHT WITHIN REACH. FALL PRECAUTIONS IN PLACE
[2018-07-19 16:24] VITALS: BP 175/80
[2018-07-19 19:46] VITALS: BP 165/66
--- NOTE | 2018-07-20 01:25 | NUR ---
PT ALERT AND ORIENTED X 4, FLAT. UP TO BR PIVOT TRANSFER TO W/C WITH ASSIST X 1. WOUND VAC INTACT TO STERNUM. DRESSINGS TO RIGHT LEG INTACT. 02 ON AT 2L PER NC DURING THE NIGHT. BLOOD SUGAR 180 AT HS. INSULIN GIVEN ORDERED. BP 165/66 AT START OF SHIFT. PRN AMLODIPINE GIVEN ORDERED. PT DENIES PAIN OR DISCOMFORT. BED ALARM ON FOR SAFETY. PT CHECKED ON HOURLY ROUNDS.
[2018-07-20 08:44] VITALS: BP 181/67
[2018-07-20 18:59] VITALS: BP 170/63
--- NOTE | 2018-07-20 20:02 | NUR ---
ASSUMED CARE OF PT AT 0715. PT IS A&OX4, BLOOD PRESSURE IS ELEVATED, BUT WAS TREATED SUCCESSFULLY WITH MEDICAITONS. ACCU CHECKS PERFORMED AC/HS AND BLOOD SUGARS MANAGED WITH ORAL MEDICAITONS AND INSULIN. PT HAS SIGNIFICANT DIFFICULTIES WITH SWALLOWING AND DECISION WAS MADE TO BEGIN MECHANICAL SOFT DIET AND CRUSH MEDICAITONS IN PUDDING FOR SAFETY. PT TRANSFERS WITH 1 PERSON PIVOT TRANSFER TO W/C. STERNAL PRECAUTIONS IN PLACE. SURGICAL SITE TO THE STERNUM DRESSING WAS CHANGED THIS SHIFT BY PROVIDER, DRESSINGS TO BILATERAL OF STERNUM WOUND, AND RIGHT INNER THIGH AND CALF C/D/I. PT ON CONTACT PRECAUTIONS FOR MRSA OF NARES AND NURSING WILL CONTINUE CONTACT PRECAUTIONS. RIGHT LEG +2 EDEMA, ELEVATED WHILE IN BED. FALL PRECAUTIONS IN PLACE AND NURSING WILL CONTINUE TO MONITOR PT.
--- NOTE | 2018-07-21 00:49 | NUR ---
PT ASSESSMENT COMPLETED AND VSS. MEDS GIVEN ORDERED AND WELL TOLERATED. FALL PRECAUTIONS IN PLACE. UP TO THE BATHROOM WITH PIVOT TO A WHEELCHAIR/GAIT BELT/ASST. VOIDING LARGE AMOUNT OF YELLOW URINE. TYLENOL HELPFUL FOR PAIN. ASST WITH REPOSITION FOR COMFORT. SLEEPING WELL. WILL CONTINUE TO MONITOR FREQUENTLY. DSGS DRY AND INTACT.
--- NOTE | 2018-07-21 11:35 | NUR ---
ASSUMED CARES AT 0700. PT LETHARGIC/ FATIGUED, ALERT AND ORIENTED*4 BUT FORGETFUL. C/O MILD NON-CARDIAC R/T CHEST PAIN AND RLE PAIN, PAIN MEDICATION ADMINISTERED IN MODERATION R/T TO PT PAST HX. BP ELEVATED THIS AM, BP LOWERING MEDS ADMINISTERED ORDERED. PT REMAINS IN STERNAL PRECAUTIONS. PATI DRESSING REMAINS DRY AND INTACT. ABDOMINAL INCISIONS, RIGHT INNER THIGH INCISION AND RIGHT LEG INCISION REMAIN DRY AND INTACT. PT CONTINUES TO HAVE EDEMA ON RLE, EXTREMITY ELEVATED. PT UP WITH 1-2 MIN ASSIST, UNABLE TO TOLERATE OT WELL SHE WAS FATIGUED AND SLEEPY. MEDICATIONS ADMINISTERED BY ST ONE AT A TIME IN PUDDING AND PT TOLERATED WELL. (PT PREFERS MEDS WHOLE OTHER THAN CRUSHED), NEEDS TO SIT UPRIGHT TO PREVENT CHOCKING. ISOLATION MAINTAINED. Q1H VISUAL CHECKS. CALL LIGHT WITHIN REACH. FALL PRECAUTIONS IN PLACE
[2018-07-21 20:30] VITALS: BP 168/72
--- NOTE | 2018-07-22 03:21 | NUR ---
assumed care at approx 1900 evening 07/21. pt lying in bed with head of bed elevated resting at change of shift. pt with sternal precautions. pt up to bathroom several times tonight to void. pt took hs meds with glucerna per her request. pt in isolation for mrsa nares. pt appears to be sleeping soundly at present. bed alarm on and call light in reach. will continue to monitor.
[2018-07-22 07:40] VITALS: BP 179/76
--- NOTE | 2018-07-22 12:08 | NUR ---
ASSUMED CARE OF PT AT 0715. PT IS A&OX4. BLOOD PRESSURE ELEVATED EARLY IN SHIFT AND RESOLVED FOLLOWING ADMINISTRATION OF ORDERED BLOOD PRESSURE MEDICAITONS. OXYGEN DECREASED FROM 2L O2 VIA NC TO 1L AT 1100 AND CONTINUED TO MAINTAIN O2 SATS AROUND 94%. PT DENIED PAIN AND PARTICIPATED IN SCHEDULED THERAPIES. PT AMBULATES AND TRANSFERS WITH 1 PERSON MOD ASSIST WITH GAIT BELT AND WALKER. PATI DRESSING TO THE CHEST C/D/I, BANDAIDS TO CHEST X3 AND RIGHT LEG X3 C/D/I. PT TAKES MEDICAITONS WHOLE IN PUDDING 1 AT A TIME WITH SIPS OF WATER BETWEEN MEDS. PERIPHERAL PULSES +2 BILATERALLY IN ALL EXTREMITIES. NON-PITTING EDEMA TO RLE. BLOOD GLUCOSE MONITORED AND TREATED WITH INSULIN AND ORAL MEDICAITONS. FALL PRECAUTIONS IN PLACE AND NURSING WILL CONTINUE TO MONITOR.
[2018-07-22 21:18] VITALS: BP 182/75
--- NOTE | 2018-07-23 01:28 | NUR ---
PT ALERT AND ORIENTED X 4. AMB TO BR WITH WALKER AND ASSIST X 1. PATI DRESSING C/D/I TO CHEST. RIGHT LEG BANDAIDS X 3 C/D/I. BLOOD SUGAR 153 AT HS. INSULIN GIVEN ORDERED. PT DENIES PAIN OR DISCOMFORT. BED ALARM ON FOR SAFETY. PT APPEARS TO BE SLEEPING ON HOURLY ROUNDS.
[2018-07-23 04:16] LABS: CALCIUM 10.5 mg/dL (8.5-10.1); CREATININE 1.3 mg/dL (0.6-1.0); POTASSIUM 4.3 mmol/L (3.5-5.1)
[2018-07-23 06:04] VITALS: BP 176/70
[2018-07-23 07:50] VITALS: BP 178/88
[2018-07-23 19:24] VITALS: BP 194/69
--- NOTE | 2018-07-23 19:43 | NUR ---
ASSUMED CARE OF PT AT 0715. PT IS A&OX4 AND BLOOD PRESSURE WAS ELEVATED BUT TREATED SUCCESSFULLY WITH ORAL MEDIATIONS PER ORDERS. PT REPORTED NAUSEA DURING SHIFT, ORDERS OBTAINED FOR PO NAUSEA MEDICAITON AND GIVEN TO PT. PT DID NOT FULLY PARTICIPATE IN ALL THERAPIES DUE TO NAUSEA DISPITE PO MEDICAITON. MEDICAITONS GIVEN WHOLE IN PUDDING OR WITH GLUCERNA. ACCU CHECKS DONE AC/HS AND TREATED WITH INSULIN AND ORAL MEDICAITONS. PT ON CONTACT ISOLATION FOR MRSA OF NARES. PT REPORTED INCREASED RLE WEAKNESS AND ORDERS OBTAINED FOR MRI SCAN. PT TRANSFERS AND AMBULATES WITH 1 PERSON MODERATE ASSIST WITH WALKER AND GAIT BELT. NURSING WILL CONTINUE WITH CONTACT PRECAUTIONS. FALL PRECAUTIONS IN PLACE AND NURSING WILL CONTINUE TO MONITOR.
--- NOTE | 2018-07-23 19:51 | NUR ---
PATI DRESSING C/D/I, BANDAIDS X3 AROUND PATI DRESSING AND X3 TO THE RLE C/D/I.
--- NOTE | 2018-07-24 02:26 | NUR ---
assumed care at approx 1900 evening 07/23. pt lying in bed with head of bed elevated resting at change of shift and visiting with visitor at bedside. pt remains in isolation as ordered for mrsa nares. pt up to bathroom with 1 assist and pt with sternal precautions. pt appears to be sleeping soundly with hourly rounding checks. bed alarm on and call light in reach. will continue to monitor.
[2018-07-24 07:30] VITALS: BP 173/65
--- NOTE | 2018-07-24 11:36 | NUR ---
ASSUMED CARE AT 0700. PATIENT IS ALERT AND ORIENTED X4. PATIENT CALDERÓN'S, TECHNICIAN SEMICONDUCTOR DEVELOPMENT ARE EQUAL. LUNGS ARE CLEAR. ABD IS SOFT WITH BSX4. PATIENT HAS PATI DRESSING TO HER CHEST INCISION. PLAN MRI AT 13:15 TODAY. PATIENT HAS STERNAL PRECAUTIONS. PATIENT IS UP WITH ASSIST OF 1 STAFF, GAIT BELT AND WALKER. 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 FALL AND SAFETY PROTOCOLS IN PLACE. NO C/O PAIN AT THIS TIME. CONTINUES TO PROGESS TOWARDS D/C GOALS. WILL CONTINUE TO MONITER.
--- NOTE | 2018-07-24 12:36 | NUR ---
team meeting recommendation: re team with anticipated dc home on 08/03/18 , will need fww, and home health (pt, ot, st and nursing).
[2018-07-24 19:13] VITALS: BP 169/62
--- NOTE | 2018-07-25 04:05 | NUR ---
ASSUMED CARE OF PT. @ 1900. PT LAYING IN BED ALERT AND ORIENTEDX4 DENIES PAIN. PATI DRESSING INTACT. STILL IN ISOLATION FOR MRSA OF THE NARES. POC DONE AND MEDS GIVEN LLOYD IT WELL. BED IN LOW POSITION AND CALL LIGHT WITHIN REACH. WILL CONTINUE TO MONITOR.
[2018-07-25 08:05] VITALS: BP 171/79
--- NOTE | 2018-07-25 12:23 | NUR ---
DCP FAXED FACESHEET TO JORJE AT [facility] TO HELP WITH DISABILITY APPLICATION. DCP TO FOLLOW.
--- NOTE | 2018-07-25 13:42 | NUR ---
ASSUMED PT CARE AT 0715, PT A&OX4, PATI DRSG TO MIDLINE CHEST IS C/D/I. AMBULATES WITH ASSIST X1 AND WALKER.REMAIN IN ISOLATION FOR MRSA OF NARES.DENIES PAIN AT THIS TIME. WILL CONT POC.
--- NOTE | 2018-07-25 15:16 | NUR ---
Patient participated in community reintegration on 07/25/18 with OCCUPATIONAL THERAPY. Refer to documentation by DORENE MESA.
--- NOTE | 2018-07-25 17:59 | HC ---
[facility] [place] [address] CONSULTATION Name: ROLAND FOREMAN Sandy Room #: 503-P ADM IN M.R.#: [id number] Admission: 07/18/18 ������������������ Attend Phys: Isaias Murillo MD Discharge: ������������������ Date of : 47 Report #: [id number] THIS REPORT FOR: //name// CC: Isaias Simental DATE OF SERVICE: 07/23/2018 HISTORY OF PRESENT ILLNESS: This is a 73-year-old female patient who was evaluated by me for the leg weakness. This patient gives a history that she started noticing this leg weakness since the surgery on her heart. The records indicate that she was admitted on 07/11/2018 and subsequently underwent surgery on the heart. She indicated that she has been weak in the right lower extremity since the surgery required taking a vessel from the right lower extremity. Weakness is generalized in the right leg. It has not progressed. She is not complaining of any weakness in the left lower extremity. It has not progressed, but she does not think she has improved either. REVIEW OF SYSTEMS: Is pretty extensive in this patient. She has a history of diabetes, hypertension and hyperlipidemia. The records indicate that she is short of breath now and she was when she came to the hospital. Many other conditions like pulmonary edema, suicidal ideation, uncontrolled diabetes, lumbar sprain/strain, community-acquired pneumonia has been summarized in the prior records. Review of systems is also positive bundle-branch block and a question of stroke, which is not very clear. PAST MEDICAL HISTORY: Positive for multiple problems. FAMILY HISTORY: Negative for any early age stroke. SOCIAL HISTORY: She does not smoke. PHYSICAL EXAMINATION: Indicates that higher function is difficult to evaluate because the patient is short of breath. It looks like she is oriented and her speech looks intact. Her fund of knowledge and memory according to her is about the same. Cranial nerve examination 2-12 was difficult to carry out, but the patient's right lower extremity is definitely weak. Her reflexes are present in both lower extremities. Some time, it looks like the right plantar is upgoing. She said she can appreciate the sensation on both sides. Blood pressure is 178/88, pulse is 80, temperature is 97.6 and respirations are 20. Sed rate is 18. She is short of breath. IMPRESSION: This patient is significantly weak in the right lower extremity, but the reflexes are present. 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 Because of that, upper motor neuron lesion is higher up in the [place] [address] CONSULTATION Name: LES RIDERROLAND Sandy Room #: 503-P [facility] IN M.R.#: [id number] Admission: 07/18/18 ������������������ Attend Phys: Isaias Murillo MD Discharge: ������������������ Date of : 47 Report #: [id number] need to be excluded. I think this patient should have some further workup. I will suggest starting with an MRI of the brain and the lumbar spine. She has some metal in the esophagus and I talked to the MRI and they indicated that is not a contraindication for doing an MRI. If she is considered stable to go down for MRI, that is what I will suggest. I discussed that aspect with the patient and I discussed her approaches and her options and pros and cons of multiple options. She understands the MRI. She understands some risks and she understands the advantages. She wants to proceed with that and we will try to schedule that and follow up on that. Thank you very much for this referral. Total time spent 50 minutes, more than half of it counseling and coordinating. ��������������������������������������������� <ELECTRONICALLY SIGNED> ���������������������������������������� By: Philip Chang MD ��������������������������������������������� 07/25/18 1759 1600 0001 Philip Chang MD /nt
[2018-07-25 18:58] VITALS: BP 145/64
--- NOTE | 2018-07-25 23:19 | NUR ---
PT ASSESSMENT COMPLETED AND VSS. MEDS GIVEN ORDERED AND WELL TOLERATED. FALL PRECAUTIONS IN PLACE. STERNAL PRECAUTIONS FOLLOWED. UP TO THE BATHROOM WITH ASST/GAIT/WALKER. STEADY. PT DID NEED ASST WIPING HERSELF. VOIDING LARGE AMOUNT OF YELLOW URINE. SAT WNL ON 2L NC AT HS. SLEEPING WELL. SCD ON. IS ENC. WILL CONTINUE TO MONITOR FREQUENLTY. BARRIER CREAM APPLIED TO COCCYX. PT TURNED FREQUENTLY.
--- NOTE | 2018-07-26 07:18 | NUR ---
Pt PARTICIPATED IN COMMUNITY REINTEGRATION ACTIVITY WITH OT ON 07/25/18. PLEASE REFER TO OT DOCUMENTATION
--- NOTE | 2018-07-26 12:29 | NUR ---
cm visited with pt at bedside, education on hh support when dc home, list provided. per pt ok to send referral to [facility]. referral sent, pcp dr hunt and [facility] are able to accept [facility] [place].
[2018-07-26 19:06] VITALS: BP 153/57
--- NOTE | 2018-07-26 19:12 | NUR ---
ASSUMED CARE OF PT AT 0730. PT IS A&OX4, BLOOD PRESSURE ELEVATED BUT MANAGED WTIH ORAL MEDICAITONS PER ORDERS. PT TAKES MEDICATIONS WHOLE IN PUDDING WITH SIPS OF WATER AFTER EACH BITE. PT TRANSFERS AND AMBULATES WITH 1 PERSON ASSISTANCE WITH WALKER AND GAIT BELT. PT HAD SWALLOW STUDY THIS SHIFT. PT PARTICIPATED IN SCHEDULED THERAPIES. PT HAS PATI DRESSING C/D/I TO THE STERNUM WITH STERNAL PRECAUTIONS, AND BANDAIDS TO THE RLE X3 AND STERNAL AREA X3. FALL PRECAUTIONS IN PLACE AND NURSING WILL CONTINUE TO MONITOR.
--- NOTE | 2018-07-27 00:59 | NUR ---
PT ASSESSMENT COMPLETED AND VSS. MEDS GIVEN ORDERED AND WELL TOLERATED. FALL PRECAUTIONS IN PLACE. UP TO THE BATHROOM WITH ASST/GAIT/WALKER. VOIDING LARGE AMOUNT OF YELLOW URINE. DSGS ALL IN INTACT. SCD ON. SAT WNL ON 2L NC AT HS. SLEEPING WELL. DENIES NEEDS. WILL CONTINUE TO MONITOR FREQUENTLY.
[2018-07-27 07:30] VITALS: BP 156/64
--- NOTE | 2018-07-27 10:12 | NUR ---
ASSUMED CARE AT 0700. PATIENT IS ALERT AND ORIENTED X4. PATIENT CALDERÓN'S, PAYROLL ANALYST Are equal. LUNGS ARE CLEAR AND DEMINISHED. ABD IS SOFT WITH BSX4. UP TO THE BATHROOM TO VOID DEEPAK COLORED URINE. PATIENT IS UP WITH ASSIST OF 1 STAFF WITH GAIT BELT AND WALKER. UP TO THE DINING ROOM FOR BREAKFAST. FALL AND SAFETY PROTOCOLS IN PLACE. DENIES ANY PAIN AT THIS TIME. PATIENT REMAINS ON STERNAL PRECAUTIONS. 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 PATIENT HAS BANDAIDES IN PLACE OVER INCISION SITES ON ABD AND THE RIGHT LEG. WILL CONTINUE TO MONITER.
--- NOTE | 2018-07-27 11:36 | NUR ---
Nutrition: Pt seen for LOS on rehab unit. Admit with med complexity, general debility, recent CABG. BG controlled. On modified diet followed by ST. Hx dysphagia with repeat dilations. Eating well, 50-100% of meals. Likes glucerna and is ordered TID. Supplements stacking up at bedside, will decrease to once daily due to fair/good intake. No weight loss from usual. Low nutrition risk.
[2018-07-27 19:59] VITALS: BP 154/62
--- NOTE | 2018-07-28 05:22 | NUR ---
UP TO BATHROOM WITH GAIT BELT, IN ORDER TO MOST EASILY MAINTAIN STERNAL PRECAUTIONS SHE PREFERS TO PIVOT TO A WHEELCHAIR AND FROM THE WHEELCHAIR TO THE TOILET. OINTMENT TO NARES TO TREAT MRSA, CONTACT ISOLATION MAINTAINED. PLEASANT BUT QUIET.
[2018-07-28 07:19] VITALS: BP 159/64
--- NOTE | 2018-07-28 14:03 | NUR ---
ASSUMED CARE AT APPROX 0715. PATIENT A/O X4. C/O MILD INCISIONAL CHEST PAIN. DENIES NEED FOR PAIN MEDICINE AT THIS TIME. VSS. MEDS GIVEN PER ORDERS. CONTACT ISOLATION PRECAUTIONS MAINTAINED. PATI DRESSING TO CHEST INCISION C/D/I. OPTIFOAM TO RIGHT INNER THIGH, C/D/I. TRANSFERED TO CHAIR X1 ASSIST. AMBULATING TO TOILET TO VOID WITH SBA & CUES. FALL PRECAUTIONS IN PLACE. RESTING IN BED. WILL CONTINUE TO MONITOR.
[2018-07-28 17:01] VITALS: BP 174/63
[2018-07-28 17:05] VITALS: BP 144/58
[2018-07-28 19:30] VITALS: BP 132/56
--- NOTE | 2018-07-29 04:09 | NUR ---
PT UP WITH ASSIST TO BATHROOM. NO C/O PAIN. DRESSINGS INTACT. POSITION CHG Q2H. MEDS TAKEN WITH PUDDING CRUSHED. SLEPT WELL THROUGH THE NIGHT.
[2018-07-29 07:30] VITALS: BP 149/77
--- NOTE | 2018-07-29 10:57 | NUR ---
ASSUMED CARE OF PT AT 0715. PT IS A&OX4, BLOOD PRESSURE ELEVATED AND TREATED WITH ORAL MEDICATIONS PER ORDERS. ACCU CHECKS MONITORED PER ORDERS AND BLOOD GLUCOSE TREATED WITH ORAL MEDICATIONS AND INSULIN. PT TAKES MEDICATIONS WHOLE IN PUDDING WITH SIPS OF WATER BETWEEN. PT AMBULATING WITH STAFF DURING SHIFT WITH 1 PERSON ASSISTANCE WITH GAIT BELT AND WALKER. FALL PRECAUTIONS IN PLACE AND NURSING WILL CONTINUE TO MONITOR.
[2018-07-29 19:45] VITALS: BP 141/67
--- NOTE | 2018-07-29 22:59 | NUR ---
PT ASSESSMENT COMPLETED AND VSS. MEDS GIVEN ORDERED AND WELL TOLERATED. FALL PRECAUTIONS IN PLACE. ALL DRESSING AND BANDADES DRY AND INTACT. TYLENOL HELPFUL FOR SURGICAL PAIN. UP TO THE BATHROOM WITH ASST/GAIT/WALKER. STEADY. VOIDING LARGE AMOUNT OF YELLOW URINE. SLEEPING WELL. WILL CONTINUE TO MONITOR FREQUENTLY.
[2018-07-30 07:25] VITALS: BP 148/67
--- NOTE | 2018-07-30 14:28 | NUR ---
ASSUMED CARE OF PT AT 0715. PT IS A&OX4 AND VITAL SIGNS ARE STABLE. ACCU CHECKS AC/HS AND BLOOD GLUCOSE MANAGED WITH ORAL MEDICATION AND INSULIN. PT TAKES MEDICATIONS WHOLE IN PUDDING ONE AT A TIME WITH SIPS OF WATER BETWEEN. PATI DRESSING REMOVED PER PROTOCOL AND REPLACED WITH [place] DRESSING TO MIDLINE INCISION, BOARDER DRESSINGS TO TROCAR SITES ON ABDOMEN X3, RLE INCISONS LEFT OPEN TO AIR PER PROVIDERS ORDERS. PT TRANSFERS AND AMBULATES WITH MIN ASSIST 1 PERSON WITH WALKER AND GAIT BELT. PT REPORTS THAT SHE IS CONCERNED ABOUT POSSIBLE DISCHARGE AND FEELS LIKE SHE DOES NOT HAVE THE CONFIDENCE TO GO HOME AT THIS TIME. FALL PRECAUTIONS IN PLACE AND NURSING WILL CONTINUE TO MONITOR.
--- NOTE | 2018-07-30 15:26 | PLAN ---
[facility] [place] [address] REHAB UNIT PLAN OF CARE Name: ROLAND FOREMAN Room #: 503-P [facility] IN M.R.#: [id number] Admission: 07/18/18 ������������������ Attend Phys: Isaias Murillo MD Discharge: ������������������ Date of : 47 Report #: [id number] THIS REPORT FOR: //name// CC: Isaias Simental DATE OF SERVICE: 07/20/2018 SUBJECTIVE: The patient is seen back today in followup. She is in no distress. Temperature 36.9, pulse 72, respirations 20, blood pressure 165/66. The patient is sleeping, but easily arouses. She has the midline sternal dressing in place. There is no focal calf swelling. Transfers are max assist. Gait mod assist 10 feet front-wheeled walker. Occupational therapy, lower body dressing is max assist, upper body is being assessed. Speech therapy is being assessed regarding communication and cognition as well. ASSESSMENT: 1. Medical complex with generalized debilitation. 2. Multifactorial gait instability. 3. Coronary artery disease, status post coronary artery bypass grafting, 07/13/2018 4. Chronic dysphagia, has undergone routine dilation of her esophagus, 07/12/2018. 5. Bilateral knee degenerative arthritis. 6. Diabetic peripheral neuropathy. 7. Exogenous obesity. 8. Hypertension. 9. Urinary incontinence for which oxybutynin was resumed. 10. Diabetes mellitus type 2. 11. Hyperlipidemia. PLAN: The overall plan of care is based on the preadmission screen, post-admission physician evaluation and information garnered from therapy assessments. 1. Estimated length of stay is probably at least 7-10 days and more likely 10-14 days pending her progress. 2. Medical prognosis is reasonably good. 3. Anticipated interventions includes the interdisciplinary acute inpatient rehabilitation program. 4. Anticipated functional outcomes would be for the patient to become modified independent with transfers, mobility and ADLs at least at the walker level. She is also being evaluated regarding cognition with speech therapy to see her. 5. Discharge destination would be back to the home setting where she was previously living, which is in a house with significant other. 6. Expected therapy by discipline includes PT and OT and speech 1 hour per day [place] [phone] REHAB UNIT PLAN OF CARE Name: ROLAND FOREMAN Room #: 503-P ADM IN ..#: [id number] Admission: 07/18/18 ������������������ Attend Phys: Isaias Murillo MD Discharge: ������������������ Date of : 47 Report #: [id number] each five days a week throughout the duration of the acute inpatient rehabilitation stay. ��������������������������������������������� <ELECTRONICALLY SIGNED> ���������������������������������������� By: Isaias Murillo MD ��������������������������������������������� 07/30/18 1526 [id number] [id number] Isaias Murillo MD /[facility]
--- NOTE | 2018-07-30 15:26 | H ---
[facility] [place] [address] HISTORY AND PHYSICAL Name: ANGELICA FOREMANORAErma Delgado Room #: 503-P [facility] IN M.R.#: [id number] Admission: 07/18/18 ������������������ Attend Phys: Isaias Murillo MD Discharge: ������������������ Date of : 47 Report #: [id number] THIS REPORT FOR: //name// CC: Isaias Simental DATE OF SERVICE: 07/19/2018 HISTORY AND PHYSICAL AND POST-ADMISSION PHYSICIAN EVALUATION HISTORY OF PRESENT ILLNESS: The patient is a 73-year-old white female who was originally admitted on 07/10/2018 with chest pain, shortness of breath with exertion. She was diagnosed with coronary artery disease and underwent coronary artery bypass grafting x 4 on 07/13/2018. She has history of chronic dysphagia as well and underwent an EGD with dilatation on 07/12/2018. She has bilateral lower extremity weakness felt to be multifactorial with chronic arthritic problems, warranting knee injections as well as a prior history of diabetic peripheral neuropathy. She was on significant O2 up to 10 liters. This has been decreased down. She has significant functional mobility and ADL deficits and has now been admitted for acute in-hospital inpatient rehabilitation. PAST MEDICAL HISTORY: Includes diabetes mellitus, history of lap band surgery in 2011, bladder surgery, hypertension, hyperlipidemia, insulin-dependent diabetes mellitus, Meniere's disease, obstructive sleep apnea on CPAP, stroke x 3 without residual bundle branch block, fibromyalgia, GERD, lap band removal. She has had yearly EGDs with dilatation of her esophagus, history of depression, cholecystectomy and LINQ placement. MEDICATIONS: Please see the full medication listing. This includes vitamins, herbals, and supplements. ALLERGIES: TOMATO PLANT ALSO WOOL per report. HABITS: No history of alcohol or tobacco abuse. 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 REVIEW OF SYSTEMS: She has complaints of generalized weakness. Some discomfort as expected over the sternal area. No current chest pain, shortness of breath, or abdominal discomfort. She has the numbness of her feet with peripheral neuropathy. No fever or chills. PHYSICAL EXAMINATION: GENERAL: A 73-year-old obese white female in no obvious distress. [address] [address] HISTORY AND PHYSICAL Name: LES RIDERANGELICAROLAND D Room #: [address] [place] [address] [place] [facility].#: [id number] Admission: 07/18/18 ������������������ Attend Phys: Isaias Murillo MD Discharge: ������������������ Date of : 47 Report #: [id number] VITAL SIGNS: Temperature 97.7, pulse 79, respirations 18, blood pressure 187/71. The patient is on 2 liters nasal cannula. HEENT: Appeared benign. Facies are symmetric. CHEST: Sounded clear with some decreased breath sounds. CARDIAC: Regular rate and rhythm. She has a midline sternal incision, which is dressed. ABDOMEN: Bowel sounds positive, nontender. GENITOURINARY AND RECTAL: Deferred. EXTREMITIES: She has functional range of motion, strength is grade 4-/5. DTRs are trace to 1 to upper extremities. Lower extremities, decreased distal sensation consistent with peripheral neuropathy. She has chronic knee degenerative arthritic changes. No focal calf swelling. Lower extremity strength is grade 3+/5. DTRs are trace to 1. She needs assistance with basic functional mobility issues with needing at least mod assist sit to stand. She attempted taking a few steps with a walker. ASSESSMENT: A 73-year-old white female with the following problems: 1. Medical complexity with generalized debilitation. 2. Multifactorial gait instability. 3. Coronary artery disease, status post coronary artery bypass grafting, 07/13/2018. 4. Chronic dysphagia has undergone routine dilation of her esophagus, 07/12/2018. 5. Bilateral knee degenerative arthritis. She has had knee injections in the past. 6. Diabetic peripheral neuropathy. 7. Exogenous obesity. 8. Prior history of lap band surgery. 9. Renal insufficiency. PLAN: The patient is admitted for acute in-hospital inpatient rehabilitation. From a postadmission physician evaluation perspective, there are no relevant changes since the preadmission screening. Please see the review of prior and current medical and functional conditions and comorbidities. Please see the patient's previous and current functional status. As far as risk of complications, the patient has multiple medical comorbidities as noted above. Initial plan of care involves the interdisciplinary acute inpatient rehabilitation program with the goal of maximizing the patient's functional independence, so she can hopefully return back to her prior living situation. Measurable functional goals would be for the patient to become modified independent with transfers, mobility, ADLs, so she can hopefully return back to her prior living situation. Prognosis is reasonably good with estimated length of stay probably at least 7-14 days pending progress. She may warrant longer than that as she is at a lower level. Potential barriers would include her multiple medical comorbidities and decreased functional status. [facility] [address] [place] [address] HISTORY AND PHYSICAL Name: ROLAND FOREMAN Room #: 503-P ADM IN M.R.#: [id number] Admission: 07/18/18 ������������������ Attend Phys: Isaias Murillo MD Discharge: ������������������ Date of : 47 Report #: [id number] The patient meets diagnostic criteria for an acute in-hospital inpatient rehabilitation stay. She meets the medical necessity criteria and we will have her continue to follow regarding rehab therapy issues. She does have the tolerance for therapies and has appropriate discharge goals back to the home setting. ��������������������������������������������� <ELECTRONICALLY SIGNED> ���������������������������������������� By: Isaias Murillo MD ��������������������������������������������� 07/30/18 1526 [id number] Isaias Murillo MD /nt
[2018-07-30 21:10] VITALS: BP 147/56
--- NOTE | 2018-07-31 00:44 | NUR ---
PT ASSESSMENT COMPLETED AND VSS. MEDS GIVEN ORDERED AND WELL TOLERATED. FALL PRECAUTIONS IN PLACE. SNACK AT HS WITH INSULIN. UP TO THE BATHROOM WITH ASST/GAIT/WALKER. STEADY. SUPPORTIVE SIGNIFICANT OTHER AT BEDSIDE. CONTACT ISOLATION FOLLOWED. SLEEPING WELL. WILL CONTINUE TO MONITOR FREQUENTLY. SAT WNL ON 2L NC AT HS.
[2018-07-31 07:30] VITALS: BP 141/61
--- NOTE | 2018-07-31 17:01 | NUR ---
Team care conference held today. Recommendations for dc to home with hh on Monday08/03/18 discussed with the pt and her sign other at bedside. [facility] alerted to weekend start of care for nursing and therapy. Both advised of request for sign other to train with therapy, 24 hr supervision at home and need for lots of reminders regarding sternal percautions. Pt has a rollarwalker at home. Pt is scheduling train with her sign other. Both agreeable to the dc plan. Questions regarding social security and consumer credit counseling answered.
[2018-07-31 17:05] VITALS: BP 141/61
[2018-07-31 20:00] VITALS: BP 132/62
--- NOTE | 2018-07-31 20:47 | NUR ---
ASSUMED CARE OF PT AT 0715. PT IS A&OX4 AND VITAL SIGNS ARE STABLE. ACCU CHECKS AC/HS AND BG MANAGED WITH ORAL MEDICATIONS AND INSULIN PER ORDERS. [place] DRESSINGS TO MIDLINE INCISION, OPTIFOAM TO TROCAR SITES ON ABDOMEN AND SURGICAL INCISIONS ON RLE OPEN TO AIR. PT REPORTED NAUSEA DURING SHIFT AND WAS TREATED WITH ORAL MEDICAIOTNS. PT TAKES MEDICATIONS WHOLE WITH PUDDING ONE AT A TIME. TRANSFERS WITH ONE PERSON ASSISTANCE WITH GAIT BELT AND WALKER. STERNAL PRECAUTIONS IN PLACE. D/C PLANS FOR MONDAY OR MONDAY. CLARIFY D/C INSTRUCTIONS FOR DRESSINGS WITH DR. VARMA'S PA. FALL PRECAUTIONS IN PLACE AND NURSING WILL CONTINUE TO MONITOR.
--- NOTE | 2018-08-01 02:58 | NUR ---
DECLINED AN OFFERED ASSIST OF A PILLOW TO HELP LIE ON SIDE. UP TO VOID WITH GAIT BELT. BLOOD SUGAR 113 AT HS, SSI DECLINED, HOME DOSE OF 10 UNITS LANTUS GIVEN. BARRIER CREAM TO BUTTOCKS AFTER VOIDS. PILLS WITH PUDDING
--- NOTE | 2018-08-01 08:39 | NUR ---
PT SPOKE WITH Pt'S SIGNIFICANT OTHER ON 07/31/18. PROVIDED EDUCATION REGARDING STERNAL PRECAUTIONS AND Pt'S FUNCTIONAL MOBILITY STATUS. JEAN REPORTS HE WILL BE ABLE TO ASSIST WITH BED MOBILITY AND TRANSFERS IF NECESSARY AND VERBALIZES UNDERSTANDING OF STERNAL PRECAUTIONS. PT INVITED JEAN TO COME TO THERAPY SESSIONS ON 08/01 OR 08/02. JEAN STATES HE WILL BE IN ON 08/01/18
[2018-08-01 08:40] VITALS: BP 132/58
--- NOTE | 2018-08-01 17:46 | NUR ---
ASSUMED CARE OF PATIENT AT 0715, PATIENT ALERT AND ORIENTED X 4. PATIENT UP ASSIST X 1 WITH GAIT BELT AND WALKER. PATIENT DENIES PAIN, BUT HAS SOME DISCOMFORT WITH STERNAL AREA, DRESSING TO AREA, C/D/I. PATIENT HAS INCISION TO RIGHT LEG. PATIENT HAD GALL BLADDER REMOVED 3 LAP SITES. PATIENT TAKES MEDS WHOLE WITH PUDDING, SWALLOWING ISSUES REPORTED. BLOOD SUGAR MONITORING ORDERED, DINNER BLOOD SUGAR 54, JUICE AND ICE CREAM GIVEN, THIS RN NOTIFIED DR DOMINGUEZ OF LOW BLOOD SUGAR, RECEIVED ORDER TO DECREASE LANTUS TO 5 UNITS AT HS. FALL PRECAUTIONS IN PLACE. ISOLATION FOR MRSA IN NARES. PATIENT WORKED WITH PT/OT TODAY, UP TO CHAIR FOR LUNCH. WILL CONTINUE TO MONITOR.
[2018-08-01 21:00] VITALS: BP 152/59
--- NOTE | 2018-08-02 02:43 | NUR ---
ASSUMED CARE OF PT AT 1915. PT IS A&OX4 AND VITAL SIGNS ARE STABLE. ACCU CHECK AC/HS, BLOOD GLUCOSE MANAGED WITH ORAL MEDICAIONS AND INSULIN. PT TAKES PO MEDICATIONS WHOLE IN PUDDING. MIDLINE SURGICAL INCISION COVERED WITH [place] DRESSING C/D/I, TROCAR SITES X3 COVERED WITH OPTIFOAM DRESSINGS C/D/I, AND SURGICAL INCISIONS TO THE RLE X3 OPEN TO AIR, WELL APPROXIMATED AND W/O DRAINAGE. PT ON CONTACT ISOLATION FOR MRSA OF THE NARES. PT REPORTS NO PAIN AT THIS TIME. FALL PRECAUTIONS IN PLACE AND NURSING WILL CONTINUE TO MONITOR.
[2018-08-02] MEDS ORDERED: PACERONE 200 M200 M1 PO (07:48)
[2018-08-02] MEDS ORDERED: BENICAR40 MG PO (07:49)
[2018-08-02] MEDS ORDERED: AMLODIPINE BESY10 MG PO (07:49)
[2018-08-02] MEDS ORDERED: ALDACTONE50 MG PO (07:49)
[2018-08-02] MEDS ORDERED: LANTUS100 UNIT/M SUBQ (07:50)
[2018-08-02] MEDS ORDERED: HYDROCODON-ACE1 EAC7 PO (07:50)
[2018-08-02] MEDS ORDERED: SERTRALINE HCL50 MG PO (07:50)
[2018-08-02 08:31] VITALS: BP 181/78
--- NOTE | 2018-08-02 13:18 | NUR ---
ASSUMED CARE AT 0700. PATIENT IS ALERT AND ORIENTED X4. PATIENT CALDERÓN'S. STATIC BALANCER ARE EQUAL. PATIENT HAS STERNAL INCISION COVERED WITH [place] BANDAID. LEG INCISIIONS OPEN TO AIR. UP ON SIDE OF BED FOR MEALS. FALL AND SAFETY PROTOCOLS IN PLACE. DENIES ANY PAIN. CONTINUES TO PROGESS TOWARDS D/C GOALS. WILL CONTINUE TO MONITER.
[2018-08-02 20:05] VITALS: BP 156/74
--- NOTE | 2018-08-03 02:02 | NUR ---
UP TO TOILET WITH STANDBY ASSIST, STERNAL SUTURES COVERED WITH [place] BANDAID, ABD TROCAR SITES COVERED WITH 3X3 OPTIFOAM BORDER DRESSINGS, LEG HARVEST SITE WOUNDS OPEN TO AIR. DECLINES MIDNIGHT CARAFATE, WILL CONTINUE TO TAKE PRIOR TO MEALS
[2018-08-03 08:44] VITALS: BP 154/68
[2018-08-03 14:33] VITALS: BP 141/61
[2018-08-03 14:44] VITALS: BP 141/61
[2018-08-03 14:52] VITALS: BP 141/61
--- NOTE | 2018-08-03 16:23 | NUR ---
NOTIFIED BHARATI AT [facility] OF DISCHARGE TO HOME WITH HH TODAY. SHE WILL NOTIFY PT TIME OF VISITS.
--- NOTE | 2018-08-03 16:50 | NUR ---
ASSUMED CARE AT APRPOX 0715. PATIENT A/O X4. DENIES NEED FOR PAIN MEDICINE, C/O SORENESS IN CHEST FROM MIDLINE INCISION. VSS. UP X1 ASSIST GB AND WALKER, SBA AND CUES FOR STERNAL PRECAUTIONS. MEDS ADMINISTERED PER ORDERS. MED ORDERS RECEIVED FOR DISCHARGE FROM DR. DOMINGUEZ. PRESCRIPTIONS E-SCRIBED TO PATIENT'S PHARMACY ON FILE. CTS PA ROUNDED ON PATIENT, STATED SUTURES SHOULD BE KEPT IN UNTIL F/U APPOINTMENT WITH SURGERY, SITE SHOULD BE LEFT OPEN TO AIR. PATIENT INSTRUCTED BY PA AND THIS NURSE. D/C PAPERWORK REVIEWED WITH PATIENT AND HER SPOUSE. MED INFO SHEETS GIVEN. HANDOUTS GIVEN. FALL PRECAUTIONS IN PLACE. PATIENT INSTRUCTED ON SAFETY PRECAUTIONS AT HOME AND NO DRIVING UNTIL CLEARED BY PCP. PATIENT LEFT UNIT WITH VOLUNTEER TRANSPORT APPROX 1615.
== END 2018-08-03 16:55 | disposition home health service (06) | DRG 947 ==
LOC: ENTRNSPT 08-03 15:58
PROVIDERS: Family Medicine; ADMIT Physical Medicine & Rehabilitation
PROC: 5A09357 Assistance with Respiratory Ventilation, Less than 24 Consecutive Hours, Continuous Positive Airway Pressure (ICD-10-PCS; principal; 2018-07-18)
DX: R53.81 Other malaise (principal); I63.9 Cerebral infarction, unspecified; I50.22 Chronic systolic (congestive) heart failure; I42.9 Cardiomyopathy, unspecified; I69.354 Hemiplegia and hemiparesis following cerebral infarction affecting left non-dominant side; I25.10 Atherosclerotic heart disease of native coronary artery without angina pectoris; R26.9 Unspecified abnormalities of gait and mobility; R13.10 Dysphagia, unspecified; M17.0 Bilateral primary osteoarthritis of knee; E66.09 Other obesity due to excess calories; R32 Unspecified urinary incontinence; E78.5 Hyperlipidemia, unspecified; K21.9 Gastro-esophageal reflux disease without esophagitis; F41.9 Anxiety disorder, unspecified; N28.9 Disorder of kidney and ureter, unspecified; E11.42 Type 2 diabetes mellitus with diabetic polyneuropathy; F32.9 Major depressive disorder, single episode, unspecified; G47.33 Obstructive sleep apnea (adult) (pediatric); M79.7 Fibromyalgia; I11.0 Hypertensive heart disease with heart failure; K22.2 Esophageal obstruction; G31.84 Mild cognitive impairment of uncertain or unknown etiology; M48.061 Spinal stenosis, lumbar region without neurogenic claudication; Z90.710 Acquired absence of both cervix and uterus; Z68.31 Body mass index [BMI] 31.0-31.9, adult; Z95.1 Presence of aortocoronary bypass graft; Z90.49 Acquired absence of other specified parts of digestive tract; Z91.02 Food additives allergy status; Z79.899 Other long term (current) drug therapy; Z79.82 Long term (current) use of aspirin; Z79.4 Long term (current) use of insulin; Z79.84 Long term (current) use of oral hypoglycemic drugs; Z98.84 Bariatric surgery status
CPT/HCPCS: 10112; 57116

== ENCOUNTER → 2019-02-21 | Outpatient (CLI) | payer OTHER ==
[~2019-02-21] VITALS: Ht 167.6 cm; Wt 86.6 kg
[~2019-02-21] MED LIST changes: +AMLODIPINE BESY10 MG PO; +COLLAGEN PLUS1 EACH PO; +FERREX 150150 MG PO; +FUROSEMIDE 20 M20 MG PO; +HYALURONIC ACI1 EACH PO; +HYDROCODON-ACE1 EAC7 PO; +KLOR-CON 10 ER10 MEQ PO; +MOTION SICKNESS25 MG PO; +NOVOLOG100 UNIT/M SUBQ; +OLIVE LEAF EXT250 MG PO; +PACERONE200 MG PO; +SERTRALINE HCL50 MG PO; +TIROSINT100 MCG PO; +VITAMIN B COMP1 EACH PO; +VITAMIN D32000 UNIT PO; +ZOLOFT 50 MG TA50 M1 PO
--- NOTE | ~2019-02-21 | P ---
[facility] [place] [address] PROCEDURE REPORT Name: Sandy FOREMAN Room #: REG [facility]#: [id number] Admission: 02/21/19 Attend Phys: Lele Roberts MD Discharge: Date of : 49 Report #: [id number] THIS REPORT FOR: //name// CC: Lele Simental MD DATE OF SERVICE: 02/21/2019 OUTPATIENT COLONOSCOPY REPORT BRIEF HISTORY: The patient is a 73-year-old woman with a history of colon polyps for high risk screening colonoscopy. PREOPERATIVE DIAGNOSIS: High risk screening colonoscopy. POSTOPERATIVE DIAGNOSIS: Gdlhnsge-mf-dkegyz left-sided diverticulosis coli. MEDICATIONS: Deep sedation with propofol per anesthesia. SPECIMEN: None. ESTIMATED BLOOD LOSS: None. PROCEDURE: Colonoscopy to cecum and terminal ileum. FINDINGS: Prior to propofol sedation, procedure of colonoscopy discussed with the patient as well potential risks and its complications. She indicates she understands and desires to proceed. DESCRIPTION OF PROCEDURE: With the patient in left lateral decubitus position, digital examination was completed, which revealed no abnormalities. Subsequently, the Olympus video colonoscope was introduced in the rectum, advanced under direct vision. She has fairly extensive diverticular disease in the sigmoid colon, which is fairly rigid and tortuous. With some difficulty, we were able to carefully advance the scope through the sigmoid colon into the proximal colon. We reached the cecum was identified by the ileocecal valve and the appendiceal orifice. I was able to visualize the distal segment of terminal ileum, which was inspected and noted to be unremarkable. At that point, the scope was slowly withdrawn and careful circumferential views obtained. Upon slow withdrawal of the scope, there were some limitations of the prep. However, we were able to lavage and clean up much of the colon and overall reasonably good prep was obtained. The mucosa was within normal limits, normal vascular pattern, normal light reflex. No neoplastic lesions were seen during this examination. The scope was withdrawn in the sigmoid colon and again, extensive diverticular disease was seen and was very tortuous, but no neoplastic lesions [address] [address] PROCEDURE REPORT Name: Sandy FOREMAN [id number] Admission: 02/21/19 Attend Phys: Lele Roberts MD Discharge: Date of : 49 Report #: [id number] were seen and no inflammatory changes were seen. Scope was withdrawn in the rectum, no abnormalities were seen. Upon retroflexion, no abnormalities were seen. Scope was withdrawn. The patient tolerated the procedure well. CONDITION OF THE PATIENT UPON DISCHARGE: Following procedure, the patient drowsy, aroused, conversant and will be discharged home when fully ambulatory. INSTRUCTIONS TO THE PATIENT AND FAMILY AT THE TIME OF DISCHARGE: No neoplastic lesions were seen. We will suggest high fiber diet. I suggest followup colon exam in 10 years. Last colonoscopy was 5 years ago. Withdrawal time from the cecum was 9 minutes 29 seconds. By: 1050 [id number] Lele Roberts MD /nt
== END | disposition home or self-care (01) ==
LOC: GI 01:48
DX: Z12.11 Encounter for screening for malignant neoplasm of colon (principal); Z86.010 Personal history of colon polyps; K57.30 Diverticulosis of large intestine without perforation or abscess without bleeding; K21.9 Gastro-esophageal reflux disease without esophagitis; I11.0 Hypertensive heart disease with heart failure; I50.9 Heart failure, unspecified; E11.9 Type 2 diabetes mellitus without complications; M79.7 Fibromyalgia; I25.2 Old myocardial infarction; F32.9 Major depressive disorder, single episode, unspecified; G47.30 Sleep apnea, unspecified; Z98.890 Other specified postprocedural states; Z79.899 Other long term (current) drug therapy; Z86.73 Personal history of transient ischemic attack (TIA), and cerebral infarction without residual deficits; Z79.4 Long term (current) use of insulin; Z98.84 Bariatric surgery status; M19.90 Unspecified osteoarthritis, unspecified site; G43.909 Migraine, unspecified, not intractable, without status migrainosus; Z90.49 Acquired absence of other specified parts of digestive tract

== ENCOUNTER → 2019-02-27 | Outpatient (CLI) | payer OTHER | LOC: RAD 12:36 | DX: R06.02 Shortness of breath (principal) ==

== ENCOUNTER → 2019-03-20 | Outpatient (CLI) | payer OTHER | LOC: MRI 07:09 | DX: M47.26 Other spondylosis with radiculopathy, lumbar region (principal); M51.16 Intervertebral disc disorders with radiculopathy, lumbar region; M48.061 Spinal stenosis, lumbar region without neurogenic claudication; M51.46 Schmorl's nodes, lumbar region; M53.3 Sacrococcygeal disorders, not elsewhere classified; M12.88 Other specific arthropathies, not elsewhere classified, other specified site; M25.78 Osteophyte, vertebrae ==

== ENCOUNTER → 2019-04-18 | Outpatient (CLI) | payer OTHER | LOC: MRI 14:34 | DX: G31.9 Degenerative disease of nervous system, unspecified (principal); R90.82 White matter disease, unspecified; J32.9 Chronic sinusitis, unspecified ==

== ENCOUNTER → 2019-05-21 | Outpatient (CLI) | payer OTHER ==
[~2019-05-21] MED LIST changes: +APETEX LIQ790 MG/15 PO; +CARAFATE 1 GM TA1 GM PO; +CYMBALTA30 MG PO; +EUTHYROX50 MCG PO; +HUMULIN N100 UNIT/3 SUBQ; +LEVO-T50 MCG PO; +METFORMIN HCL500 M3 PO
== END | disposition home or self-care (01) ==
LOC: SJCVCIMAG 13:02 → SJCVC 13:02
PROVIDERS: ATTEND Internal Medicine
DX: I08.1 Rheumatic disorders of both mitral and tricuspid valves (principal); I11.0 Hypertensive heart disease with heart failure; I50.32 Chronic diastolic (congestive) heart failure; I42.0 Dilated cardiomyopathy; I25.10 Atherosclerotic heart disease of native coronary artery without angina pectoris; E78.5 Hyperlipidemia, unspecified; G47.33 Obstructive sleep apnea (adult) (pediatric); E11.9 Type 2 diabetes mellitus without complications; R94.31 Abnormal electrocardiogram [ECG] [EKG]; I44.7 Left bundle-branch block, unspecified; I63.40 Cerebral infarction due to embolism of unspecified cerebral artery; Z95.1 Presence of aortocoronary bypass graft; Z79.82 Long term (current) use of aspirin; Z79.84 Long term (current) use of oral hypoglycemic drugs; Z79.4 Long term (current) use of insulin; Z79.899 Other long term (current) drug therapy

== ENCOUNTER → 2019-07-04 | Outpatient (CLI) | payer OTHER ==
[~2019-07-04] VITALS: Ht 170.2 cm; Wt 86.2 kg
[~2019-07-04] MED LIST changes: -CARAFATE 1 GM TA1 GM PO; -HUMULIN N100 UNIT/3 SUBQ; -LEVO-T50 MCG PO
--- NOTE | 2019-07-06 12:27 | P ---
[facility] [place] [address] PROCEDURE REPORT Name: ROLAND FOREMAN Room #: REG [facility]#: [id number] Admission: 07/04/19 Attend Phys: Lele Roberts MD Discharge: Date of : 49 Report #: [id number] THIS REPORT FOR: cc: Gary Simental MD, Neal A. MD Thesing, John A. MD ~ CC: Lele Simental MD DATE OF SERVICE: 07/04/2019 BRIEF HISTORY: The patient is a 74-year-old woman well known to me with a history of reflux disease. She also has had intermittent solid food dysphagia. She had a LINX procedure in the past. She was last dilated a year ago. She has again developed dysphagia for solids and liquids. PREOPERATIVE DIAGNOSIS: Recurrent dysphagia. POSTOPERATIVE DIAGNOSIS: Recurrent dysphagia. MEDICATIONS: Deep sedation with propofol per Anesthesia. SPECIMEN: None. ESTIMATED BLOOD LOSS: None. PROCEDURE: EGD and Millan dilation. FINDINGS: Prior to propofol sedation, procedure of upper endoscopy and dilation was reviewed with the patient as well as potential risks and its complications. She indicates she understands and desires to proceed. DESCRIPTION OF PROCEDURE: With the patient in left lateral decubitus position, the Olympus video endoscope was inserted in the cervical esophagus under direct vision without difficulty. Examination of this organ through its entire length revealed normal esophageal mucosa down the squamocolumnar junction. The squamocolumnar junction was inspected and noted to be unremarkable. No ulcers or erosions were seen. Hiatus hernia was not seen. A stricture or mass lesion was not seen. An obvious explanation for dysphagia was not seen. The scope was advanced in the stomach, was examined on end view as well as retroflexed views. Gastric mucosa was normal. No ulcers, erosions or esophagitis was seen. Upon retroflexion, no mass lesions were seen in the cardia. Pylorus was unremarkable. Duodenal bulb was unremarkable. Postbulbar sweep was unremarkable. The duodenal papilla was identified and noted to be unremarkable. At that point, the scope was slowly withdrawn and careful circumferential views [facility] [address] [place] [address] PROCEDURE REPORT Name: ROLAND FOREMAN Room #: REG [facility].#: [id number] Admission: 07/04/19 Attend Phys: Lele Roberts MD Discharge: Date of : 49 Report #: [id number] confirmed the above findings. The patient tolerated the procedure well. Following removal of the scope, she was dilated with passage of 50[place] Millan dilator. There was no resistance encountered. CONDITION OF THE PATIENT UPON DISCHARGE: Following procedure, the patient drowsy. She will be discharged home when fully ambulatory. INSTRUCTIONS TO THE PATIENT AND FAMILY AT THE TIME OF DISCHARGE: The patient does complain of throat clearing, which may or may not be related to reflux disease. She does have a history of diabetes. I did not see any solid retained material in the stomach to suggest gastroparesis. We will try pantoprazole 40 mg daily. Again, she does have a LINX and she does not have evidence of esophagitis. If she has good benefit, she may continue long-term and reduce to lowest dose as tolerated. However, if she continues to have problems, she may return for followup in the office. If symptoms persist, esophageal pH study may be needed. <ELECTRONICALLY SIGNED> By: Lele Roberts MD 07/06/19 1227 0928 [id number] Lele Roberts MD /nt
== END | disposition home or self-care (01) ==
LOC: GI 08:22
DX: R13.14 Dysphagia, pharyngoesophageal phase (principal); K21.9 Gastro-esophageal reflux disease without esophagitis; I11.0 Hypertensive heart disease with heart failure; I50.9 Heart failure, unspecified; E11.40 Type 2 diabetes mellitus with diabetic neuropathy, unspecified; E78.5 Hyperlipidemia, unspecified; I25.2 Old myocardial infarction; F32.9 Major depressive disorder, single episode, unspecified; E03.9 Hypothyroidism, unspecified; G43.909 Migraine, unspecified, not intractable, without status migrainosus; G47.30 Sleep apnea, unspecified; M19.90 Unspecified osteoarthritis, unspecified site; Z98.890 Other specified postprocedural states; Z79.899 Other long term (current) drug therapy; Z95.1 Presence of aortocoronary bypass graft; Z98.84 Bariatric surgery status; Z79.82 Long term (current) use of aspirin; Z79.4 Long term (current) use of insulin
CPT/HCPCS: 62110; 62900

== ENCOUNTER 2019-07-31 04:39 | Inpatient (IN) | payer OTHER ==
[~2019-07-31] VITALS: Ht 170.2 cm; Wt 94.8 kg
[2019-07-31] VITALS (7 sets, daily range): BP systolic 123–179; BP diastolic 53–70
[2019-07-31 05:01] LABS: BE(vivo) -2.3 mmol/L (-2 to +3); HCO3 21.3 mmol/L (22.0-26.0); PCO2 VENOUS 32.8 mmHg (41.0-51.0); PO2 VENOUS 79.1 mmHg (35.0-45.0)
[2019-07-31 05:03] LABS: ABSOLUTE NEUTROPHILS 11.4 thou/uL (1.4-8.2); BASOPHILS 0.2 % (0.0-2.0); HEMATOCRIT 34.4 % (37.0-47.0); HEMOGLOBIN 11.6 gm/dL (12.0-15.0); LYMPHOCYTES 4.2 % (24.0-44.0); MCH 31.1 pg (26.0-34.0); MCHC 33.8 g/dL (28.0-37.0); MCV 92.2 fL (80.0-100.0); MONOCYTES 1.3 % (1.0-8.0); PLATELET COUNT 203 thou/uL (150-400); POLYS 94.3 % (36.0-66.0); RBC 3.73 mil/uL (4.20-5.00); RDW 13.2 % (10.5-14.5); WBC 12.1 thou/uL (4.0-11.0)
[2019-07-31 05:15] LABS: URINE BILIRUBIN NEGATIVE (Negative); URINE BLOOD TRACE (Negative); URINE CLARITY CLEAR; URINE COLOR YELLOW; URINE GLUCOSE-RANDOM* 3+ (Negative); URINE KETONES NEGATIVE (Negative); URINE LEUKOCYTES-REFLEX NEGATIVE (Negative); URINE PROTEIN (DIPSTICK) NEGATIVE (Negative); URINE UROBILINOGEN 0.2 E.U./dl (0.2-1.0)
[2019-07-31] MEDS ORDERED: LEVO-T50 MCG PO (05:18)
[2019-07-31] MEDS ORDERED: SPIRONOLACTONE50 MG PO (05:20)
[2019-07-31 05:22] LABS: URINE NITRITE-REFLEX POSITIVE (Negative)
[2019-07-31] MEDS ORDERED: HUMULIN N100 UNIT/3 SUBQ (05:23)
[2019-07-31] MEDS ORDERED: CARAFATE 1 GM TA1 GM PO (05:25)
[2019-07-31] MEDS ORDERED: LIPITOR10 MG PO (05:25)
[2019-07-31] MEDS ORDERED: ALBUTEROL2.5 MG/0.5 INH (05:26)
[2019-07-31 05:29] LABS: ALBUMIN 3.6 g/dL (3.4-5.0); CALCIUM 10.7 mg/dL (8.5-10.1); POTASSIUM 4.5 mmol/L (3.5-5.1); TOTAL BILIRUBIN 0.3 mg/dL (0.2-1.0); TOTAL PROTEIN 7.8 g/dL (6.4-8.2)
[2019-07-31 05:41] LABS: CASTS None Seen /LPF (None Seen); CRYSTALS None Seen /LPF (None Seen); MUCUS 0-3 Light strn/LPF (None Seen); SQUAMOUS 4-10 Moderate /LPF (0-3); URINE RBC 0-2 Rare /HPF (0-2); URINE WBC-REFLEX 6-15 Few /HPF (0-5)
[2019-07-31 07:26] LABS: CALCIUM 10.6 mg/dL (8.5-10.1); CREATININE 2.7 mg/dL (0.6-1.0); POTASSIUM 4.3 mmol/L (3.5-5.1)
[2019-07-31 08:16] LABS: ALBUMIN 3.7 g/dL (3.4-5.0); DIRECT BILIRUBIN < 0.1 mg/dL (<0.1-0.2); SGOT 10 U/L (15-37); SGPT 18 U/L (30-65); TOTAL BILIRUBIN 0.3 mg/dL (0.2-1.0); TOTAL PROTEIN 7.4 g/dL (6.4-8.2); TROPONIN-I <0.06 ng/mL (<0.06)
--- NOTE | 2019-07-31 13:38 | NUR ---
Patient arrived on Unit at 1015. Admitting diagnosis : Acute Kidney Injury and Uncontrolled Diabetes. Patient's Blood Sugars have been reported by patient to have been "in the six hundreds since yesterday." Patient's Blood Sugar was 423 at 1120; she was given 20 Units of Lispro as ordered and Dr Simental was called. Information given to Dr Simental's nurse. No new orders recieved from Dr Simental as of this time. Patient alert and oriented x's 4 but, some confusion noted at times. Patient requires stand-by assist with transfers. She has a long list of Medical Diagnosis' including a Psychiatric History of Depression with Suicidal Ideation; she denies any Suicidal Ideation upon Assessment. She is currently NPO with Normal Saline running at 125mLs per hour in left forearm IV. Patient is currently resting with eyes closed. Will continue to monitor.
--- NOTE | 2019-07-31 13:47 | NUR ---
PT ADMITTED RELATED TO UNCONTROLLED DM AND BRADLY. CM REVIEWED CHART AND SPOKE WITH CARE TEAM. CM CALLED AND SPOKE WITH PT THIS DAY. PT APPEARED TO BE A&O X4. CM ROLE INTRODUCED. PT INDICATED SHE LIVES IN A HOUSE SHE JUST BOUGHT WITH HER FIANCE. SHE INDICATED THERE IS A RAMP TO ENTER BUT 4 STEPS INSIDE. PT INDICATED SHE USES A 4WW WITH A SEAT THAT SHE USES FOR LONG DISTANCES. PT INDICATED SHE HAD A CPAP FOR HOME USE. SHE HAD BEEN ON 5N AND HAD GONE HOME WITH [facility] . PT INDICATED SHE HAD DONE OP PT AND OP CARDIAC REHAB HERE PRIOR TO COVID OUTBREAK. PT INDICATED SHE ANTICIPATES RETURNING HOME ONCE MEDICALLY STABLE.
--- NOTE | 2019-07-31 15:49 | EKG ---
[facility] [place] [address] ELECTROCARDIOGRAM REPORT Name: ROLAND FOREMAN Room #: 464-P ADM IN M.R.#: [id number] Admission: 07/31/19 Attend Phys: Gary Simental MD Discharge: Date of : 49 Report #: [id number] THIS REPORT FOR: cc: Gary Simental MD, Neal A. MD Couchonnal, Luis F. MD ~ THIS REPORT FOR: //name// [facility] ED Test Date: 2019-07-31 Test Time: 08:00:22 Pat Name: ROLAND MENDOZAepartment: Room: 464 Gender: F Mds Rn: LEONARDO RIZZO : 1945 Requested By: Tyson More Order Number: [id number] MD: Grayson Reid Measurements Intervals [place] Rate: 95 P: 92 CO: 176 QRS: -58 QRSD: 157 T: 122 QT: 395 QTc: 497 Interpretive Statements Sinus rhythm Left bundle branch block Baseline wander in lead(s) V3,V5 Compared to ECG 07/17/2018 07:27:39 No significant changes Electronically Signed On 07-31-2019 15:48:43 CDT by Grayson Reid [email or web address] <ELECTRONICALLY SIGNED> By: Grayson Reid MD 07/31/19 1548 9 9 Grayson Reid MD /EPI
[2019-08-01 00:03] VITALS: BP 151/65
[2019-08-01 03:25] VITALS: BP 145/73
[2019-08-01 05:35] LABS: HEMATOCRIT 33.8 % (37.0-47.0); HEMOGLOBIN 11.4 gm/dL (12.0-15.0); MCH 31.3 pg (26.0-34.0); MCHC 33.7 g/dL (28.0-37.0); MCV 93.1 fL (80.0-100.0); RBC 3.62 mil/uL (4.20-5.00); RDW 13.8 % (10.5-14.5); WBC 11.5 thou/uL (4.0-11.0)
[2019-08-01 06:01] LABS: CALCIUM 10.3 mg/dL (8.5-10.1); POTASSIUM 4.1 mmol/L (3.5-5.1)
[2019-08-01 07:28] VITALS: BP 147/80
--- NOTE | 2019-08-01 08:17 | NUR ---
ASSUMED PT CARE AROUND 1930. AXOX4. CALLS PROPERLY FOR HELP. DIET ORDER CLARIFIED WITH WELL HOME MEDS RESUMED. REFUSED IVF. MADE AWARE. VSS. CARE TRANSFERRED TO CARMELA COOK AT THIS TIME.
[2019-08-01 16:16] VITALS: BP 142/71
--- NOTE | 2019-08-01 17:59 | NUR ---
ASSUMED PT CARE AROUND 0700. PATIENT AXO X4. IV RIGHT FA, FLUSHED AND SALINE LOCKED. PT REFUSED IV NS, SHE STATED DOCTOR ASKED HER TO DRINK MORE FLUIDS. VSS. HAD BM TODAY. STAND BY ASST. ACHS. CARB CONTROL DIET.FALL PRECAUTION IN PLACE. WILL CALL FOR HELP. WILL CONT TO MONITOR.
[2019-08-01 19:15] VITALS: BP 119/53
--- NOTE | 2019-08-02 01:09 | NUR ---
PATIENT IS RESTING COMFORTABLY IN BED. PATIENT REFUSES IV FLUIDS PROVIDER AWARE. PATIENT REQUESTED C-PAP, DUE TO WEARING C-PAP AT HOME. JOSEPHM.
[2019-08-02 05:00] VITALS: BP 173/67
[2019-08-02 07:31] VITALS: BP 127/60
[2019-08-02] MEDS ORDERED: CEFDINIR300 MG PO (07:32)
[2019-08-02 08:09] LABS: HEMATOCRIT 35.3 % (37.0-47.0); HEMOGLOBIN 11.9 gm/dL (12.0-15.0); MCH 31.3 pg (26.0-34.0); MCHC 33.7 g/dL (28.0-37.0); MCV 92.9 fL (80.0-100.0); RBC 3.8 mil/uL (4.20-5.00); RDW 13.8 % (10.5-14.5)
[2019-08-02 08:19] LABS: CALCIUM 10.2 mg/dL (8.5-10.1); CREATININE 1.9 mg/dL (0.6-1.0); POTASSIUM 4.5 mmol/L (3.5-5.1)
[2019-08-02 11:07] VITALS: BP 127/60
--- NOTE | 2019-08-02 20:10 | NUR ---
ASSUMED PT CARE AT 0700. PT ALERT XORIENTED X4. PATIENT GOAL WAS TO GO HOME. PT CALL FOR HELP. MARIELENATOE SAID PT CAN GO HOME IF LABS CAME NORMAL. PT WAS DISCHARGED BY NOON.
== END 2019-08-02 12:05 | disposition home or self-care (01) | DRG 637 ==
LOC: ER 04:39 → 4W 09:01 → EROBS 09:01 → 4W 09:48
PROVIDERS: Emergency Medicine; ADMIT Family Medicine; ATTEND Family Medicine
PROC: 5A09357 Assistance with Respiratory Ventilation, Less than 24 Consecutive Hours, Continuous Positive Airway Pressure (ICD-10-PCS; principal; 2019-08-02)
DX: E11.65 Type 2 diabetes mellitus with hyperglycemia (principal); N17.0 Acute kidney failure with tubular necrosis; N39.0 Urinary tract infection, site not specified; E78.5 Hyperlipidemia, unspecified; M19.90 Unspecified osteoarthritis, unspecified site; G43.909 Migraine, unspecified, not intractable, without status migrainosus; K21.9 Gastro-esophageal reflux disease without esophagitis; F32.9 Major depressive disorder, single episode, unspecified; E11.40 Type 2 diabetes mellitus with diabetic neuropathy, unspecified; I12.9 Hypertensive chronic kidney disease with stage 1 through stage 4 chronic kidney disease, or unspecified chronic kidney disease; I25.10 Atherosclerotic heart disease of native coronary artery without angina pectoris; N18.9 Chronic kidney disease, unspecified; Z90.710 Acquired absence of both cervix and uterus; Z86.73 Personal history of transient ischemic attack (TIA), and cerebral infarction without residual deficits; Z91.02 Food additives allergy status; Z90.49 Acquired absence of other specified parts of digestive tract; Z86.14 Personal history of Methicillin resistant Staphylococcus aureus infection; I25.2 Old myocardial infarction; Z95.1 Presence of aortocoronary bypass graft; Z88.8 Allergy status to other drugs, medicaments and biological substances; E11.22 Type 2 diabetes mellitus with diabetic chronic kidney disease
CPT/HCPCS: 10040

== ENCOUNTER → 2019-09-26 | Outpatient (CLI) | payer OTHER ==
[~2019-09-26] MED LIST changes: +CARAFATE 1 GM TA1 GM PO; +HUMULIN N100 UNIT/3 SUBQ; +LEVO-T50 MCG PO
== END ==
LOC: ULTRA 07:26
PROVIDERS: ATTEND Internal Medicine
DX: D35.1 Benign neoplasm of parathyroid gland (principal); E21.0 Primary hyperparathyroidism

== ENCOUNTER 2019-09-27 17:27 | Emergency (ER) | payer OTHER ==
[~2019-09-27] VITALS: Ht 170.2 cm; Wt 88.5 kg
[2019-09-27 19:34] LABS: URINE BILIRUBIN NEGATIVE (Negative); URINE BLOOD 1+ (Negative); URINE CLARITY CLEAR; URINE COLOR YELLOW; URINE GLUCOSE-RANDOM* 3+ (Negative); URINE KETONES NEGATIVE (Negative); URINE LEUKOCYTES-REFLEX NEGATIVE (Negative); URINE NITRITE-REFLEX NEGATIVE (Negative); URINE PROTEIN (DIPSTICK) 1+ (Negative); URINE UROBILINOGEN 0.2 E.U./dl (0.2-1.0)
[2019-09-27 19:43] LABS: BACTERIA-REFLEX 1-9 Few /HPF (None Seen); CASTS None Seen /LPF (None Seen); CRYSTALS None Seen /LPF (None Seen); SQUAMOUS 0-3 Few /LPF (0-3); URINE RBC 3-10 Few /HPF (0-2); URINE WBC-REFLEX 0-5 Rare /HPF (0-5)
[2019-09-27 19:54] LABS: ABSOLUTE NEUTROPHILS 7.2 thou/uL (1.4-8.2); BASOPHILS 0.7 % (0.0-2.0); EOSINOPHILS 0.6 % (0.0-3.0); HEMATOCRIT 37.5 % (37.0-47.0); HEMOGLOBIN 12.8 gm/dL (12.0-15.0); LYMPHOCYTES 13.9 % (24.0-44.0); MCH 31.3 pg (26.0-34.0); MCHC 34.3 g/dL (28.0-37.0); MCV 91.3 fL (80.0-100.0); MONOCYTES 3.8 % (1.0-8.0); PLATELET COUNT 205 thou/uL (150-400); RDW 13.7 % (10.5-14.5); WBC 8.9 thou/uL (4.0-11.0)
[2019-09-27 20:02] LABS: ANION GAP 10 mmol/L (7-16); BUN 39 mg/dL (7-18); CALCIUM 11.1 mg/dL (8.5-10.1); CHLORIDE 102 mmol/L (98-107); CO2 28 mmol/L (21-32); CREATININE 2.2 mg/dL (0.6-1.0); GLUCOSE 312 mg/dL (74-106); POTASSIUM 4.5 mmol/L (3.5-5.1); SODIUM 140 mmol/L (136-145)
[2019-09-27 20:12] LABS: ALBUMIN 4.2 g/dL (3.4-5.0); DIRECT BILIRUBIN < 0.1 mg/dL (<0.1-0.2); LIPASE 205 U/L (73-393); SGOT 17 U/L (15-37); SGPT 26 U/L (30-65); TOTAL BILIRUBIN 0.4 mg/dL (0.2-1.0); TOTAL PROTEIN 8.6 g/dL (6.4-8.2); TROPONIN-I <0.06 ng/mL (<0.06)
[2019-09-27] MEDS ORDERED: ZOFRAN ODT4 MG PO (20:54)
[2019-09-27 21:01] VITALS: BP 169/72
--- NOTE | 2019-09-28 11:37 | EKG ---
[facility] [place] [address] ELECTROCARDIOGRAM REPORT Name: ROLAND FOREMAN Room #: [facility].Jayson#: [id number] Admission: 09/27/19 Attend Phys: Discharge: 09/27/19 Date of : 49 Report #: [id number] THIS REPORT FOR: cc: Gary Simental MD, Neal A. MD Couchonnal, Luis F. MD ~ THIS REPORT FOR: //name// [facility] ED Test Date: 2019-09-27 Test Time: 19:31:50 Pat Name: ROLAND MENDOZAepartment: Room: Gender: F Bottom Loader: FLORINA : 1945 Requested By: Eduardo Valiente Order Number: [id number] MD: Grayson Reid Measurements Intervals [place] Rate: 73 P: 46 FL: 210 QRS: -53 QRSD: 159 T: 130 QT: 448 QTc: 494 Interpretive Statements Sinus rhythm Left bundle branch block Compared to ECG 07/31/2019 08:00:22 No significant changes Electronically Signed On 09-28-2019 11:37:45 CDT by Grayson Reid [email or web address] <ELECTRONICALLY SIGNED> By: Grayson Reid MD 09/28/19 1137 30 30 Grayson Reid MD /EPI
== END 2019-09-27 21:03 | disposition home or self-care (01) ==
LOC: ER 17:27
PROVIDERS: Emergency Medicine
DX: N18.9 Chronic kidney disease, unspecified (principal); E83.52 Hypercalcemia; R11.0 Nausea; E78.5 Hyperlipidemia, unspecified; M19.90 Unspecified osteoarthritis, unspecified site; M79.7 Fibromyalgia; G43.909 Migraine, unspecified, not intractable, without status migrainosus; K21.9 Gastro-esophageal reflux disease without esophagitis; I25.2 Old myocardial infarction; Z91.018 Allergy to other foods; Z79.899 Other long term (current) drug therapy; Z79.82 Long term (current) use of aspirin; Z90.49 Acquired absence of other specified parts of digestive tract; Z98.890 Other specified postprocedural states; Z95.1 Presence of aortocoronary bypass graft; Z86.73 Personal history of transient ischemic attack (TIA), and cerebral infarction without residual deficits

== ENCOUNTER → 2019-10-16 | Outpatient (CLI) | payer OTHER | LOC: ULTRA 08:55 | PROVIDERS: ATTEND Internal Medicine Nephrology | DX: E11.22 Type 2 diabetes mellitus with diabetic chronic kidney disease (principal); N18.4 Chronic kidney disease, stage 4 (severe) ==

== ENCOUNTER → 2019-11-20 | Outpatient (CLI) | payer OTHER | LOC: SJCVC 14:08 | PROVIDERS: ATTEND Internal Medicine | DX: R94.31 Abnormal electrocardiogram [ECG] [EKG] (principal); I44.7 Left bundle-branch block, unspecified; I11.0 Hypertensive heart disease with heart failure; I50.32 Chronic diastolic (congestive) heart failure; I42.0 Dilated cardiomyopathy; E78.5 Hyperlipidemia, unspecified; G47.33 Obstructive sleep apnea (adult) (pediatric); E11.9 Type 2 diabetes mellitus without complications; I63.40 Cerebral infarction due to embolism of unspecified cerebral artery; Z95.1 Presence of aortocoronary bypass graft; Z79.899 Other long term (current) drug therapy ==

== ENCOUNTER → 2019-11-28 | Outpatient (CLI) | payer OTHER | LOC: MRI 10:53 | PROVIDERS: ATTEND Surgery | DX: E21.3 Hyperparathyroidism, unspecified (principal); M50.21 Other cervical disc displacement, high cervical region; E21.4 Other specified disorders of parathyroid gland ==

== ENCOUNTER 2019-12-27 06:22 | Inpatient (IN) | payer OTHER ==
[~2019-12-27] VITALS: Ht 170.2 cm; Wt 88.5 kg
--- NOTE | ~2019-12-27 | HC ---
[facility] [place] [address] CONSULTATION Name: ROLAND FOREMAN Room #: 459-P [facility] IN M.R.#: [id number] Admission: 12/27/19 Attend Phys: Gian Zapata MD Discharge: 12/28/19 Date of : 49 Report #: [id number] THIS REPORT FOR: cc: Gary Simental MD, Neal A. MD Al-Mubaslat, Ahmad MD ~ DATE OF SERVICE: 12/28/2019 ENDOCRINE CONSULTATION NOTE CONSULTING PHYSICIAN: Dr. Zapata. REASON FOR CONSULTATION: Hyperparathyroidism. HISTORY OF PRESENT ILLNESS: This is a 74-year-old female patient whose medical background is significant for multiple medical issues including type 2 diabetes mellitus, renal insufficiency, and coronary artery disease. The patient was recently diagnosed with hyperparathyroidism, which was confirmed on laboratory workup. She subsequently underwent localization studies, which have confirmed the presence of right superior and inferior parathyroid adenoma. Subsequently, she was admitted yesterday and had undergone a successful parathyroidectomy by Dr. Zapata. She feels rather well this morning and denies issues with numbness, tingling, altered sensation or muscle spasms. She has not had major difficulties breathing and has been eating without issue. The patient is known to have had type 2 diabetes mellitus for many years. She is currently maintained on a combination of Lantus insulin 15 units b.i.d. as well as NovoLog insulin b.i.d. a.c. She reports blood glucose control that has been reasonable as of late with most of her fasting numbers running in the 90-130 mg/dL. The patient is also known to have CAD and is status post SC in 06/2018 and a CABG at that time. She also had a stroke during that time period. The patient is known to have hypothyroidism and is maintained on low-dose levothyroxine therapy of 25 mcg daily. Importantly, the patient has been dealing with renal insufficiency consistent with stage 4 chronic kidney disease with her most recent serum creatinine of 2.36 and GFR of 20. She has recently started care with Dr. Rueda for this issue. REVIEW OF SYSTEMS: [facility] [address] [place] [address] CONSULTATION Name: ROLAND FOREMAN Room #: 459-P [facility] IN M.R.#: [id number] Admission: 12/27/19 Attend Phys: Gian Zapata MD Discharge: 12/28/19 Date of : 49 Report #: [id number] CONSTITUTIONAL: Fatigue, tiredness, but no fever, chills or body weight changes. She notes that her level of energy is distinctly better this morning. PULMONARY: Negative for shortness of breath, cough or hemoptysis. HEENT: Negative for sore throat, ear drainage or sinus pain. She does have a bit of tenderness over the surgical wound. CARDIOLOGY: Negative for chest pain, palpitations, syncope or presyncope. GASTROINTESTINAL: Negative for abdominal pain, nausea, vomiting. NEUROLOGY: Negative for numbness, tingling, loss of consciousness, headaches or seizure activity. Otherwise, review of systems noncontributory unless mentioned in HPI. PAST MEDICAL HISTORY: 1. Type 2 diabetes mellitus. 2. Hyperlipidemia. 3. Hypertension. 4. Renal insufficiency, advanced, stage 4 chronic kidney disease, under the care of Dr. Rueda. 5. Hypothyroidism. 6. Hyperparathyroidism. 7. CAD, status post CABG, status post SC. 8. History of stroke. 9. Depression. 10. GERD. 11. Meniere's disease. 12. Fibromyalgia. 13. Osteoarthritis. 14. Obstructive sleep apnea. OUTPATIENT MEDICATIONS: Include: 1. Albuterol. 2. Amlodipine 10 mg daily. 3. Aspirin 81 mg daily. 4. Atorvastatin 10 mg daily. 5. Carvedilol 12.5 mg b.i.d. 6. Vitamin B12 1000 mcg daily. 7. Cymbalta 60 mg daily. 8. Ferrous sulfate 150 mg daily. 9. Lasix 40 mg daily. 10. NovoLog 15 units b.i.d. a.c. 11. Lantus insulin 15 units b.i.d. 12. Levothyroxine 25 mcg daily. 13. Spironolactone 50 mg daily. 14. Pantoprazole [address] [place] [address] CONSULTATION Name: ROLAND FOREMAN Room #: 459-P DIS IN M.R.#: [id number] Admission: 12/27/19 Attend Phys: Gian Zapata MD Discharge: 12/28/19 Date of : 49 Report #: [id number] ALLERGIES: TOMATO EXTRACT. FAMILY HISTORY: Noted for multiple medical issues including CAD, diabetes, hypertension, breast cancer. SOCIAL HISTORY: The patient denies use of tobacco, alcohol or illicit drugs. She is . PHYSICAL EXAMINATION: GENERAL: Pleasant female patient who is not in apparent pain or distress. VITAL SIGNS: Blood pressure is 135/58 mmHg, heart rate is 81 beats per minute, respirations 16 per minute, temperature 36.7 degrees Celsius. CONSTITUTIONAL: She is sitting upright in bed, appears comfortable, not in pain or distress. HEENT: Anicteric sclerae. Intact extraocular motions. NECK: Supple, without JVD. A well-aligned prior thyroidectomy incision is noted at the base of the neck. CHEST: Moderate air entry without crackles or wheezes, but with scattered rales. HEART: Regular rate and rhythm without murmurs or gallops. ABDOMEN: Soft, lax. No guarding. Active bowel sounds. EXTREMITIES: Lower extremity exam, trace ankle edema bilaterally. No skin breaks. NEUROLOGIC: Awake, alert and oriented to time, place and person. The remainder of her examination is largely nonfocal. PSYCHIATRIC: Pleasant, interactive. Normal mood and affect. Normal thought process. LABORATORY RESULTS: Blood glucose values during her hospital stay have run between 160 to 244, but predominantly been under 180 mg/dL. Otherwise, sodium 139; potassium 5.4; chloride 105; CO2 of 25; anion gap 9; BUN 42; creatinine 2.5, down from 2.8 yesterday. AST 11; lipase 205; total bilirubin 0.3; calcium 9.2, down from 10.7 yesterday and 11.1 in 09/2019; phosphorus 3.7; magnesium 2.1; alkaline phosphatase 137; ALT 13; total protein 7.7; albumin 3.3; GFR 19. Lactic acid 0.8. Total CPK 71, troponin is negative. BNP 1050 in 07/2019. Her PTH level was recorded, preoperatively was as high as 401, intraoperatively it was measured again following the resection of the culprit PTH adenoma and it went down to 139, then 68, then 65 and finally 51.7. Calcium this morning was at 9.2. White blood count 13.7, hemoglobin 10, hematocrit ____, platelets 193. ASSESSMENT AND PLAN: 1. Hyperparathyroidism. As noted in HPI, the patient was diagnosed with primary hyperparathyroidism on the basis of the ample documentation of [facility] [address] [place] [address] CONSULTATION Name: ROLAND FOREMAN Room #: 459-P DIS IN M.Darrick.#: [id number] Admission: 12/27/19 Attend Phys: Gian Zapata MD Discharge: 12/28/19 Date of : 49 Report #: [id number] hypercalcemia with simultaneous hyperparathyroidism. The patient underwent a successful parathyroidectomy by Dr. Zapata yesterday with a remarkable intraoperative PTH level drop associated with a significant calcium drop towards normal limits as noted above. The patient is actually reporting distinctive subjective improvement this morning. I am hopeful that the resolution of hyperparathyroidism would reflect positively on her renal function as well as her sense of well-being in addition to preventing multiple potential pathologies in the farther future. The patient will be discharged later today and is planned to follow up with Dr. Zapata next week to evaluate her wound. I would probably see her a month out to ensure her stability. 2. Type 2 diabetes mellitus. The patient was followed recently in my office for the issue of type 2 diabetes mellitus. Her most recent hemoglobin A1c was at 9.0, but her day-to-day glycemic control has improved significantly since then with the alteration of her insulin to the current regimen. She is advised to maintain the same. 3. Hypothyroidism. The patient has been maintained long-term on low-dose levothyroxine therapy with a good bit of stability. She is advised to continue with the same. 4. Renal insufficiency. The patient has stage 4 chronic kidney disease and I was glad to learn that she had recently established care with Dr. Rueda. Again, I am hopeful that the resolution of hyperparathyroidism and hypercalcemia would reflect favorably on this issue. She is advised to continue with her routine Nephrology care. 5. Vitamin D deficiency. Recently, the patient was found to have mild vitamin D deficiency at 27.5 on 12/09/2019. She was advised to maintain her gqnc-xlo-bzlwtmo vitamin D intake, so as to stay on top of this issue. I have reviewed the patient's inpatient and outpatient clinical records, laboratory results, and other pertinent clinical information for more than 35 minutes, in addition to my encounter time with the patient. I certainly appreciate this consultation by Dr. Zapata. By: [id number] Lisa Villa MD /nt
[~2019-12-27 06:22] MED LIST changes: +EUTHYROX25 MCG PO; +FUROSEMIDE 40 M40 MG PO; +MELATONIN10 M3 PO; +PROBIOTIC1 EAC7 PO; +PROTONIX40 M2 PO
[2019-12-27 07:26] VITALS: BP 146/80
[2019-12-27 07:50] LABS: CALCIUM 10.3 mg/dL (8.5-10.1); CREATININE 2.8 mg/dL (0.6-1.0); POTASSIUM 4.3 mmol/L (3.5-5.1)
[2019-12-27 07:57] LABS: ALBUMIN 3.7 g/dL (3.4-5.0); TOTAL BILIRUBIN 0.3 mg/dL (0.2-1.0); TOTAL PROTEIN 7.7 g/dL (6.4-8.2)
[2019-12-27 11:52] LABS: CALCIUM 10.7 mg/dL (8.5-10.1); CREATININE 2.8 mg/dL (0.6-1.0); PHOSPHORUS 4.2 mg/dL (2.5-4.9)
[2019-12-27 14:30] VITALS: BP 129/55
[2019-12-27 15:30] VITALS: BP 128/55
--- NOTE | 2019-12-27 17:07 | NUR ---
Met with patient she resides with boyfriend in independent home. SHe uses a walker for distances like [employer] office. She has ramp and 4 steps inside home with railing. She rec disability. PCP Dr Simental. She has hx of heart attack and rec HH at that time. 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 Therapy evals in process. Casemt following.
--- NOTE | 2019-12-27 19:31 | NUR ---
Pt arrived to floor from recovery room at 1430 in stable condition.Admission hx ,assessment and care plan completed.Clear liq diet given and well tolerated.Pt c/o sore throat and requested for iv pain shot.None available but po will be given by noc rn.
[2019-12-28 06:01] LABS: HEMATOCRIT 30.2 % (37.0-47.0); MCH 30.9 pg (26.0-34.0); MCHC 33.1 g/dL (28.0-37.0); MCV 93.4 fL (80.0-100.0); RBC 3.23 mil/uL (4.20-5.00); RDW 14.1 % (10.5-14.5); WBC 13.7 thou/uL (4.0-11.0)
[2019-12-28 06:21] LABS: ALBUMIN 3.3 g/dL (3.4-5.0); CALCIUM 9.2 mg/dL (8.5-10.1); CREATININE 2.5 mg/dL (0.6-1.0); MAGNESIUM 2.1 mg/dL (1.8-2.4); PHOSPHORUS 3.7 mg/dL (2.5-4.9)
[2019-12-28 06:25] LABS: POTASSIUM 5.4 mmol/L (3.5-5.1)
--- NOTE | 2019-12-28 06:28 | NUR ---
VSS-AFEBRILE. PAIN WELL CONTROLLED WITH IV AND PO PAIN MEDICATION. RESTED WELL THROUGH NIGHT WITH HOME CPAP IN PLACE. CALLS APPROPRIATELY FOR ANY NEEDED ASSISTANCE.
[2019-12-28 07:48] VITALS: BP 135/58
[2019-12-28] MEDS ORDERED: NORCO 10-325 T1 EACH PO (11:08)
[2019-12-28 12:17] VITALS: BP 135/58
--- NOTE | 2019-12-28 14:00 | NUR ---
Assumed pt care at 7am.Assessment completed.vss.Pt reported sleeping good last night with cpap on.Dr Simental and Juana here,order noted.Pt tolerated meds and diet.Dc summary compile and reviewed with pt. Saline lock dc'd and pt dc home per wc at 1400 with her significant other.
--- NOTE | 2019-12-30 17:06 | PATH ---
[facility] [place] [address] PATHOLOGY RPT PROCEDURE Name: CIARA FOREMAN Room #: 459-P DIS IN M.R.#: [id number] Admission: 12/27/19 Date of : 49 Discharge: 12/28/19 Report #: [id number] Path Case #: [id number] [facility] Accession Number: [id number] . 01 Material submitted: . PART A: parathyroid gland - RIGHT INFERIOR PARATHYROID ADENOMA FS. Modifiers: right, inferior PART B: lymph node - ZONE 6 LYMPH NODE ON THE RIGHT FS . 01 Clinical history: . PRIMARY HYPERPARATHYROIDISM . 02 Frozen section diagnosis: . INTRAOPERATIVE CONSULTATION WITH FROZEN SECTION: (Dr. Selene Walker) . FSA1. Right inferior parathyroid adenoma: - Markedly hypercellular parathyroid, 2.1 grams. . FSB1. Tissue designated as zone 6 lymph node on the right: - Parathyroid tissue. . These findings are discussed with Dr. German Zapata and a written report is placed in the patient's chart. (IUV:mml; 12/27/2019) . . FROZEN SECTION GROSS DESCRIPTION: A. Received fresh from the OR, labeled, "Ciara Hamilton - Right inferior parathyroid adenoma frozen section" is a 2.1 gram oval red-servin gland measuring 1.3 x 1.5 x 1.2 cm. The capsule is smooth, and it is inked black. At this point, the specimen is bisected. A outbound telemarketing representative half is submitted for frozen section as FSA1, this is subsequently submitted for permanent section as A1. The unfrozen remainder half of the specimen is submitted for permanent section as A2. . B. Received fresh from the OR, labeled, "Ciara Hamilton - zone 6 lymph node on the right frozen section" consists of fibrofatty tissue with a tiny 0.3 cm gland/oval tissue. The gland is bisected and submitted in entirety along with the fibrofatty tissue for frozen section as FSB1. This is subsequently submitted for permanent section as B1. (IUV:mml; 12/27/2019) . . Frozen section performed at [facility], [address], [place] [address]. IZV/QLM . 02 [facility] [place] [address] PATHOLOGY RPT PROCEDURE Name: CIARA FOREMAN Room #: 459-P DIS IN M.R.#: [id number] Admission: 12/27/19 Date of : 49 Discharge: 12/28/19 Report #: [id number] Path Case #: [id number] Diagnosis: A. Parathyroid, right inferior parathyroid adenoma, parathroidectomy: - 2.1 gram hypercellular parathyroid tissue, compatible with an adenoma. - Unremarkable minute amount of parathyroid tissue present outside the capsule with fatty infiltration. . B. Tissue designated as "zone 6 lymph node on the right", biopsy: - Parathyroid tissue with fatty infiltration. - No lymph node tissue present. (IUV:diana; 12/30/2019) QMS 12/30/2019 1613 Local . 02 Electronically signed: . Selene Walker MD, Pathologist NPI- [id number] . 01 Gross description: . A. PLEASE SEE FROZEN SECTION GROSS DESCRIPTION . B. PLEASE SEE FROZEN SECTION GROSS DESCRIPTION /QLM 12/30/2019 0941 Local . 02 Microscopic: . . . . . 02 Pathologist provided ICD-10: E21.3 . 02 CPT . 884346, 916527, 185148, 451000 Specimen Comment: A courtesy copy of this report has been sent to [phone] Specimen Comment: Report sent to Performed at: 01 [facility] [address] [place] [address] [address], [place] [id number] MD Greg Hester MD Phone: [phone] Performed at: [address] [id number] MD Selene Walker MD Phone: [phone]
== END 2019-12-28 14:00 | disposition home or self-care (01) | DRG 625 ==
LOC: TBA 06:22 → PRE 10:58 → 4W 14:05 → PRE 15:41 → 4W 12-28 14:00
PROVIDERS: Anesthesiology; ADMIT Surgery; ATTEND Surgery
PROC: 0GBN0ZZ Excision of Right Inferior Parathyroid Gland, Open Approach (ICD-10-PCS; principal; 2019-12-27)
PROC: 0GBL0ZZ Excision of Right Superior Parathyroid Gland, Open Approach (ICD-10-PCS; principal; 2019-12-27)
DX: E21.0 Primary hyperparathyroidism (principal); N17.0 Acute kidney failure with tubular necrosis; N18.4 Chronic kidney disease, stage 4 (severe); D35.1 Benign neoplasm of parathyroid gland; I25.10 Atherosclerotic heart disease of native coronary artery without angina pectoris; E78.5 Hyperlipidemia, unspecified; F32.9 Major depressive disorder, single episode, unspecified; G47.33 Obstructive sleep apnea (adult) (pediatric); K21.9 Gastro-esophageal reflux disease without esophagitis; I12.9 Hypertensive chronic kidney disease with stage 1 through stage 4 chronic kidney disease, or unspecified chronic kidney disease; E55.9 Vitamin D deficiency, unspecified; Z20.828 Contact with and (suspected) exposure to other viral communicable diseases; E11.22 Type 2 diabetes mellitus with diabetic chronic kidney disease; Z79.899 Other long term (current) drug therapy; Z91.02 Food additives allergy status; Z90.710 Acquired absence of both cervix and uterus; I25.2 Old myocardial infarction; Z95.1 Presence of aortocoronary bypass graft; Z86.73 Personal history of transient ischemic attack (TIA), and cerebral infarction without residual deficits; Z83.3 Family history of diabetes mellitus; Z82.49 Family history of ischemic heart disease and other diseases of the circulatory system; Z80.3 Family history of malignant neoplasm of breast
CPT/HCPCS: 10047; 50010; 50101; 50386; 50417; 52190; 56524; 56526; 56760; 62110; 62900; 70005

== ENCOUNTER 2020-01-24 18:52 | Emergency (ER) | payer OTHER ==
[~2020-01-24] VITALS: Ht 170.2 cm; Wt 88.5 kg
[~2020-01-24 18:52] MED LIST changes: +NORCO 10-325 T1 EACH PO
[2020-01-24 20:58] LABS: ABSOLUTE NEUTROPHILS 6.2 thou/uL (1.4-8.2); BASOPHILS 0.8 % (0.0-2.0); EOSINOPHILS 2.7 % (0.0-3.0); HEMATOCRIT 33.9 % (37.0-47.0); HEMOGLOBIN 11.3 gm/dL (12.0-15.0); LYMPHOCYTES 19.2 % (24.0-44.0); MCH 30.9 pg (26.0-34.0); MCHC 33.3 g/dL (28.0-37.0); MCV 92.8 fL (80.0-100.0); MONOCYTES 6.6 % (1.0-8.0); PLATELET COUNT 230 thou/uL (150-400); POLYS 70.7 % (36.0-66.0); RBC 3.66 mil/uL (4.20-5.00); RDW 13.6 % (10.5-14.5); WBC 8.8 thou/uL (4.0-11.0)
[2020-01-24 21:06] LABS: ANION GAP 11 mmol/L (7-16); BUN 45 mg/dL (7-18); CALCIUM 9.5 mg/dL (8.5-10.1); CHLORIDE 102 mmol/L (98-107); CO2 26 mmol/L (21-32); CREATININE 2.9 mg/dL (0.6-1.0); GLUCOSE 310 mg/dL (74-106); POTASSIUM 4.3 mmol/L (3.5-5.1); SODIUM 139 mmol/L (136-145)
[2020-01-24 21:17] LABS: LIPASE 165 U/L (73-393); SGOT 14 U/L (15-37); SGPT 19 U/L (30-65); TOTAL BILIRUBIN 0.3 mg/dL (0.2-1.0); TOTAL PROTEIN 7.9 g/dL (6.4-8.2); TROPONIN-I <0.06 ng/mL (<0.06)
[2020-01-24] MEDS ORDERED: METHOCARBAMOL500 M2 PO (21:56)
[2020-01-24] MEDS ORDERED: TRAMADOL 50 MG50 MG PO (21:56)
[2020-01-24 22:07] LABS: URINE BILIRUBIN NEGATIVE (Negative); URINE BLOOD TRACE (Negative); URINE CLARITY CLEAR; URINE COLOR YELLOW; URINE GLUCOSE-RANDOM* TRACE (Negative); URINE KETONES NEGATIVE (Negative); URINE LEUKOCYTES-REFLEX TRACE (Negative); URINE NITRITE-REFLEX NEGATIVE (Negative); URINE PROTEIN (DIPSTICK) NEGATIVE (Negative); URINE SPECIFIC GRAVITY 1.015 (1.005-1.035); URINE UROBILINOGEN 0.2 E.U./dl (0.2-1.0)
[2020-01-24 22:33] VITALS: BP 150/53
== END 2020-01-24 22:30 | disposition home or self-care (01) ==
LOC: ER 18:52
PROVIDERS: Emergency Medicine
DX: G89.29 Other chronic pain (principal); M54.5 Low back pain; E11.22 Type 2 diabetes mellitus with diabetic chronic kidney disease; I12.9 Hypertensive chronic kidney disease with stage 1 through stage 4 chronic kidney disease, or unspecified chronic kidney disease; N18.4 Chronic kidney disease, stage 4 (severe); R10.31 Right lower quadrant pain; R11.2 Nausea with vomiting, unspecified; E78.5 Hyperlipidemia, unspecified; M19.90 Unspecified osteoarthritis, unspecified site; G43.909 Migraine, unspecified, not intractable, without status migrainosus; M79.7 Fibromyalgia; K21.9 Gastro-esophageal reflux disease without esophagitis; F32.9 Major depressive disorder, single episode, unspecified; E03.9 Hypothyroidism, unspecified; E11.40 Type 2 diabetes mellitus with diabetic neuropathy, unspecified; E66.9 Obesity, unspecified; Z86.73 Personal history of transient ischemic attack (TIA), and cerebral infarction without residual deficits; Z98.61 Coronary angioplasty status; I25.2 Old myocardial infarction; Z90.49 Acquired absence of other specified parts of digestive tract; Z90.710 Acquired absence of both cervix and uterus; Z79.899 Other long term (current) drug therapy; Z79.82 Long term (current) use of aspirin; Z79.4 Long term (current) use of insulin; Z91.041 Radiographic dye allergy status; Z91.018 Allergy to other foods; Z68.30 Body mass index [BMI] 30.0-30.9, adult

== ENCOUNTER 2020-03-16 11:27 | Inpatient (IN) | payer OTHER ==
[~2020-03-16] VITALS: Ht 170.2 cm; Wt 91.7 kg
[~2020-03-16 11:27] MED LIST changes: +METHOCARBAMOL500 M2 PO
[2020-03-16 11:29] VITALS: BP 160/75
[2020-03-16 11:51] LABS: HEMATOCRIT 42.5 % (37.0-47.0); HEMOGLOBIN 14.5 gm/dL (12.0-15.0); MCH 31.2 pg (26.0-34.0); MCHC 34.1 g/dL (28.0-37.0); MCV 91.5 fL (80.0-100.0); RBC 4.64 mil/uL (4.20-5.00); RDW 13.8 % (10.5-14.5); WBC 13.4 thou/uL (4.0-11.0)
[2020-03-16 11:58] LABS: ANION GAP 7 mmol/L (7-16); BUN 57 mg/dL (7-18); CALCIUM 9.2 mg/dL (8.5-10.1); CHLORIDE 104 mmol/L (98-107); CO2 29 mmol/L (21-32); CREATININE 2.4 mg/dL (0.6-1.0); GLUCOSE 105 mg/dL (74-106); POTASSIUM 4.2 mmol/L (3.5-5.1); SODIUM 140 mmol/L (136-145)
[2020-03-16 12:08] LABS: ALBUMIN 3.3 g/dL (3.4-5.0); SGOT 23 U/L (15-37); SGPT 49 U/L (30-65); TOTAL BILIRUBIN 0.4 mg/dL (0.2-1.0); TOTAL PROTEIN 7.1 g/dL (6.4-8.2); TROPONIN-I <0.06 ng/mL (<0.06)
--- NOTE | 2020-03-16 15:14 | NUR ---
DR LEDEZMA AT BEDSIDE SPEAKING TO PATIENT
[2020-03-16 16:14] VITALS: BP 160/75
[2020-03-16 17:08] VITALS: BP 119/000
[2020-03-16 17:30] VITALS: BP 138/66
--- NOTE | 2020-03-16 19:41 | NUR ---
PT. ARRIVE AT THE FLOOR AROUND 1735; PT. AOX4; ABLE TO AMBULATE FROM STRETCHER TO BED; EDUCATED ABOUT FALL PRECAUTIONS; ST. UNDERSTANDING; C/O PAIN OVER CENTRAL ABDOMINAL AREA; SR ON THE MONITOR; C/O NAUSEA; TOLERATE DINNER; EDUCATED ABOUT CALL LIGHT & BED CONTROLS; ST. UNDERSTANDING; SCHEDULED MEDICATION GIVEN; ADMISSION PERFORMED; ASSESSMENT CHARGED; FOLLOWING POC; PASSED ON REPORT;
[2020-03-16 19:55] VITALS: BP 132/59
--- NOTE | 2020-03-17 01:01 | NUR ---
A/O X 4.C/O HEADACHE.PAIN MEDS GIVEN.DENIES CHEST PAIN.NPO SINCE MIDNIGHT FOR A POSSIBLE EGD.UP WITH ASSIST TO THE BEDSIDE COMMODE.MONITOR SHOWS SR WITH BBB.POC CONTINUED.
[2020-03-17 03:34] VITALS: BP 133/59
[2020-03-17 07:15] VITALS: BP 137/61
--- NOTE | 2020-03-17 07:19 | EKG ---
[place] [address] [facility] [place] [address] ELECTROCARDIOGRAM REPORT Name: SONYROLAND AMOR Room #: 201-P ADM IN M.R.#: [id number] Admission: 03/16/20 Attend Phys: Gary Simental MD Discharge: Date of : 49 Report #: [id number] [facility] ED Test Date: 2020-03-16 Test Time: 11:34:21 Pat Name: ROLAND MENDOZAepartment: Room: 201 Gender: F Life Guard: mikala : 1945 Requested By: Bret Diallo Order Number: [id number] MD: Stephen Dickens Measurements Intervals [place] Rate: 77 P: 48 MD: 167 QRS: -42 QRSD: 140 T: 126 QT: 399 QTc: 452 Interpretive Statements Sinus rhythm Left bundle branch block Compared to ECG 09/27/2019 19:31:50 No significant changes Electronically Signed On 03-17-2020 7:19:22 GRADES 1 THRU 6 HOME TEACHER by Stephen Dickens [email or web address] <ELECTRONICALLY SIGNED> By: Stephen Dickens MD, [facility] 03/17/20 0719 1134 1134 Stephen Dickens MD, FAC /EPI
--- NOTE | 2020-03-17 09:38 | NUR ---
Patient reported of feeling nausea, no vomitting. Zofran given, patient voiced that she was feeling better but still nausea.
[2020-03-17 11:15] VITALS: BP 147/65
[2020-03-17 15:10] VITALS: BP 118/61
[2020-03-17 20:00] VITALS: BP 141/98
[2020-03-18 04:14] VITALS: BP 168/66
--- NOTE | 2020-03-18 04:44 | NUR ---
ASSUME CARE 1900. PT/VITALS STABLE. INTERMITTENT HEADACHE. GOOD ENDURANCE TO ACTIVITY. ASSESSMENT CHARTED. PROGRESSING WELL WITH POC. TOLERATING FOOD WELL. SR/BBB ON MONITOR. NO DISTRESS NOTED/ADEQUATE REST NOTED. PLAN IS POSSIBLE DISCHARGE TODAY. WILL CONTINUE TO MONITOR AND FOLLOW WITH POC
[2020-03-18] MEDS ORDERED: AMOX TR-K CLV1 EAC4 PO (05:57)
[2020-03-18 07:44] VITALS: BP 136/57
[2020-03-18 08:34] VITALS: BP 136/57
[2020-03-18 08:40] VITALS: BP 136/57
--- NOTE | 2020-03-18 11:50 | NUR ---
A/O, calm and cooperative. vss, afebrile, denied pain, no n/v. Discharged and left with the boyfriend.
--- NOTE | 2020-03-18 15:20 | P ---
[facility] [place] [address] PROCEDURE REPORT Name: ROLAND FOREMAN Room #: 201-P [facility] IN M.R.#: [id number] Admission: 03/16/20 Attend Phys: Gary Simental MD Discharge: 03/18/20 Date of : 49 Report #: [id number] THIS REPORT FOR: cc: Gary Simental MD, Neal A. MD McElhinney, Christian C. MD ~ DATE OF SERVICE: 03/17/2020 PROCEDURE PERFORMED: Upper endoscopy with biopsies and esophageal dilation. HISTORY OF PRESENT ILLNESS: The patient is a 74-year-old female who was admitted with chest pain. Cardiac workup has been negative. She has a history of gastroesophageal reflux disease, previous history of esophageal stricture as well as dysphagia in the past. Underwent dilation in 06/[address] Roberts at that time with good improvement in her dysphagia. She is now having recurrent dysphagia. She does have a history of LINX procedure. She is also on PPI therapy as well as aspirin. Plan is for upper endoscopy with dilation. DESCRIPTION OF PROCEDURE: The risks and benefits of the procedure were explained to the patient, those risks including but not limited to bleeding, perforation and the risk of sedation. She understood these risks and gave informed consent. Sedation was given using propofol per anesthesia. Next, using a standard Olympus upper endoscope, the scope was placed in the patient's mouth and advanced under direct vision through the esophagus, stomach and into the second portion of the duodenum. The esophagus was normal throughout. The GE junction was normal. No evidence of esophagitis or stricture was noted. Upon entering the stomach, a small to moderate amount of food residual was noted, suggesting the possibility of gastroparesis. Overall, the gastric mucosa that was visualized in the fundus and body were normal; however, in the antrum, 2 small clean white based ulcers were noted, 5 and 6 mm in size. No evidence of bleeding. Biopsies were obtained to rule out H. pylori. The pylorus was normal and patent. The duodenal bulb, first and second portion were all normal. The scope was then brought back up into the patient's stomach and a Savary guidewire was inserted through the scope, leaving the guidewire in place as the scope was then withdrawn. Next, a 51-[place] Savary dilation was then performed of the esophagus without difficulty. The wire and dilator removed. The scope was reintroduced into the patient's stomach. There was no evidence of mucosal tear after dilation. The scope was then withdrawn and the procedure terminated. The patient tolerated the procedure well. IMPRESSION: 1. Food residual in the stomach, suggesting the possibility of gastroparesis. 2. Two small antral ulcers. 3. Otherwise, normal upper endoscopy. [facility] [address] [place] [address] PROCEDURE REPORT Name: ROLAND FOREMAN Room #: 201-P DIS IN M.R.#: [id number] Admission: 03/16/20 Attend Phys: Gary Simental MD Discharge: 03/18/20 Date of : 49 Report #: [id number] RECOMMENDATIONS: 1. Await biopsy results. 2. Continue PPI therapy. 3. Observe the patient post-dilation. 4. Consider gastric emptying study if the patient is having nausea, vomiting, or early satiety. Thank you for allowing me to participate in her care. <ELECTRONICALLY SIGNED> By: Julian Mijares MD 03/18/20 1520 1253 1403 Julian Mijares MD /nt
--- NOTE | 2020-03-20 18:06 | PATH ---
[facility] [address] [place] [address] PATHOLOGY RPT PROCEDURE Name: CIARA FOREMAN Room #: 201-P DIS IN M.R.#: [id number] Admission: 03/16/20 Date of : 49 Discharge: 03/18/20 Report #: [id number] Path Case #: [id number] [facility] Accession Number: [id number] . 01 Material submitted: . stomach - GASTRITIS R/O H. PYLORI . 01 Clinical history: . DYSPHAGIA,GASTRIC ULCERS . 02 Diagnosis: Gastric mucosa, gastritis rule out H. pylori, endoscopic biopsy: - Mild chronic gastritis with features of reactive gastropathy. - Negative for intestinal metaplasia or atrophy. - Negative for Helicobacter pylori (properly controlled immunohistochemical stain performed). (IUV/db; 03/20/2020) LBQ 03/20/2020 1405 Local . 02 Electronically signed: . Selene Walker MD, Pathologist NPI- [id number] . 01 Gross description: . The specimen is received in formalin, labeled "Ciara Foreman, BX gastritis" and consists of 4 fragments of pink-servin tissue measuring between 0.2 x 0.2 cm and 0.5 x 0.2 cm which are entirely submitted in A1. (SDY; 03/19/2020) SYU/SYU 03/19/2020 1503 Local . 02 Pathologist provided ICD-10: K29.50, K31.9 . 02 CPT . 583865, P97666 Specimen Comment: A courtesy copy of this report has been sent to [phone] Specimen Comment: [id number] Specimen Comment: Report sent to / DR DOMINGUEZ Performed at: [address] [id number] MD Greg Hester MD Phone: [phone] Performed at: [address] [id number] [address] [address] PATHOLOGY RPT PROCEDURE Name: CIARA FOREMAN Room #: 201-P DIS IN M.R.#: [id number] Admission: 03/16/20 Date of : 49 Discharge: 03/18/20 Report #: [id number] Path Case #: [id number] MD Selene Walker MD Phone: [phone]
== END 2020-03-18 10:38 | disposition home or self-care (01) | DRG 391 ==
LOC: ER 11:27 → 2N 14:19 → EROBS 14:19 → 2N 17:25
PROVIDERS: Emergency Medicine; ADMIT Family Medicine; ATTEND Family Medicine
PROC: 0D758ZZ Dilation of Esophagus, Via Natural or Artificial Opening Endoscopic (ICD-10-PCS; principal; 2020-03-17)
PROC: 0DB68ZX Excision of Stomach, Via Natural or Artificial Opening Endoscopic, Diagnostic (ICD-10-PCS; principal; 2020-03-17)
DX: K22.2 Esophageal obstruction (principal); I50.33 Acute on chronic diastolic (congestive) heart failure; N18.4 Chronic kidney disease, stage 4 (severe); I42.0 Dilated cardiomyopathy; I13.0 Hypertensive heart and chronic kidney disease with heart failure and stage 1 through stage 4 chronic kidney disease, or unspecified chronic kidney disease; R13.19 Other dysphagia; R07.9 Chest pain, unspecified; F32.9 Major depressive disorder, single episode, unspecified; K22.4 Dyskinesia of esophagus; M19.90 Unspecified osteoarthritis, unspecified site; I25.10 Atherosclerotic heart disease of native coronary artery without angina pectoris; J32.9 Chronic sinusitis, unspecified; E78.5 Hyperlipidemia, unspecified; K21.9 Gastro-esophageal reflux disease without esophagitis; G43.909 Migraine, unspecified, not intractable, without status migrainosus; M79.7 Fibromyalgia; E03.9 Hypothyroidism, unspecified; G47.33 Obstructive sleep apnea (adult) (pediatric); E21.3 Hyperparathyroidism, unspecified; E11.22 Type 2 diabetes mellitus with diabetic chronic kidney disease; K25.9 Gastric ulcer, unspecified as acute or chronic, without hemorrhage or perforation; Z20.822 Contact with and (suspected) exposure to COVID-19; Z95.1 Presence of aortocoronary bypass graft; I25.2 Old myocardial infarction; Z90.710 Acquired absence of both cervix and uterus; Z79.4 Long term (current) use of insulin; Z79.899 Other long term (current) drug therapy; Z79.82 Long term (current) use of aspirin; Z90.49 Acquired absence of other specified parts of digestive tract; Z91.041 Radiographic dye allergy status; Z91.018 Allergy to other foods; Z91.09 Other allergy status, other than to drugs and biological substances
CPT/HCPCS: 10081; 70005

== ENCOUNTER → 2020-04-16 | Outpatient (CLI) | payer OTHER ==
[~2020-04-16] MED LIST changes: +AMOX TR-K CLV1 EAC4 PO
== END ==
LOC: NUC 09:24
PROVIDERS: ATTEND Specialist
DX: K21.00 Gastro-esophageal reflux disease with esophagitis, without bleeding (principal); R68.81 Early satiety; K29.70 Gastritis, unspecified, without bleeding

== ENCOUNTER → 2020-05-25 | Outpatient (CLI) | payer OTHER | LOC: SJCVC 14:27 | PROVIDERS: ATTEND Internal Medicine | DX: R94.31 Abnormal electrocardiogram [ECG] [EKG] (principal); R00.0 Tachycardia, unspecified; I45.4 Nonspecific intraventricular block; I13.0 Hypertensive heart and chronic kidney disease with heart failure and stage 1 through stage 4 chronic kidney disease, or unspecified chronic kidney disease; I50.32 Chronic diastolic (congestive) heart failure; E11.22 Type 2 diabetes mellitus with diabetic chronic kidney disease; N18.4 Chronic kidney disease, stage 4 (severe); I44.7 Left bundle-branch block, unspecified; I42.0 Dilated cardiomyopathy; E78.5 Hyperlipidemia, unspecified; E11.9 Type 2 diabetes mellitus without complications; G47.33 Obstructive sleep apnea (adult) (pediatric); I63.40 Cerebral infarction due to embolism of unspecified cerebral artery; I25.10 Atherosclerotic heart disease of native coronary artery without angina pectoris; K21.9 Gastro-esophageal reflux disease without esophagitis; E78.00 Pure hypercholesterolemia, unspecified; Z95.1 Presence of aortocoronary bypass graft; Z79.82 Long term (current) use of aspirin; Z79.4 Long term (current) use of insulin; Z79.899 Other long term (current) drug therapy; Z88.8 Allergy status to other drugs, medicaments and biological substances ==

== ENCOUNTER → 2020-05-26 | Outpatient (CLI) | payer OTHER | LOC: RAD 14:16 | PROVIDERS: ATTEND Internal Medicine | DX: J98.4 Other disorders of lung (principal); R06.02 Shortness of breath; K44.9 Diaphragmatic hernia without obstruction or gangrene ==

== ENCOUNTER 2020-05-29 16:17 | Emergency (ER) | payer OTHER ==
[~2020-05-29] VITALS: Ht 170.2 cm; Wt 88.5 kg
[2020-05-29] MEDS ORDERED: NORCO5 PO (17:54)
[2020-05-29] MEDS ORDERED: CLEOCIN HCL300 MG PO (17:54)
[2020-05-29 18:06] VITALS: BP 148/70
== END 2020-05-29 18:06 | disposition home or self-care (01) ==
LOC: ER 16:17
DX: N76.4 Abscess of vulva (principal); N76.2 Acute vulvitis; G43.909 Migraine, unspecified, not intractable, without status migrainosus; M79.7 Fibromyalgia; K21.9 Gastro-esophageal reflux disease without esophagitis; E03.9 Hypothyroidism, unspecified; E11.40 Type 2 diabetes mellitus with diabetic neuropathy, unspecified; I12.9 Hypertensive chronic kidney disease with stage 1 through stage 4 chronic kidney disease, or unspecified chronic kidney disease; E11.22 Type 2 diabetes mellitus with diabetic chronic kidney disease; N18.4 Chronic kidney disease, stage 4 (severe); Z95.1 Presence of aortocoronary bypass graft; Z86.73 Personal history of transient ischemic attack (TIA), and cerebral infarction without residual deficits; Z91.041 Radiographic dye allergy status; Z91.018 Allergy to other foods; Z79.899 Other long term (current) drug therapy; Z79.82 Long term (current) use of aspirin

== ENCOUNTER 2020-05-31 21:35 | Inpatient (IN) | payer OTHER ==
[~2020-05-31] VITALS: Ht 170.2 cm; Wt 90.3 kg
[~2020-05-31 21:35] MED LIST changes: +CLEOCIN HCL300 MG PO; +NORCO5 PO
[2020-05-31 21:39] VITALS: BP 154/77
[2020-05-31 23:21] LABS: ABSOLUTE NEUTROPHILS 10.1 thou/uL (1.4-8.2); BASOPHILS 0.7 % (0.0-2.0); HEMATOCRIT 33.3 % (37.0-47.0); HEMOGLOBIN 11.2 gm/dL (12.0-15.0); LYMPHOCYTES 6.3 % (24.0-44.0); MCH 31.9 pg (26.0-34.0); MCHC 33.5 g/dL (28.0-37.0); MCV 95.1 fL (80.0-100.0); MONOCYTES 7.2 % (1.0-8.0); PLATELET COUNT 192 thou/uL (150-400); POLYS 85.8 % (36.0-66.0); RDW 15.3 % (10.5-14.5); WBC 11.8 thou/uL (4.0-11.0)
[2020-05-31 23:46] LABS: CALCIUM 9.1 mg/dL (8.5-10.1); CREATININE 2.5 mg/dL (0.6-1.0); POTASSIUM 4.9 mmol/L (3.5-5.1)
[2020-06-01 02:40] LABS: URINE BILIRUBIN NEGATIVE (Negative); URINE BLOOD 2+ (Negative); URINE CLARITY SL CLOUDY; URINE COLOR YELLOW; URINE GLUCOSE-RANDOM* 3+ (Negative); URINE KETONES NEGATIVE (Negative); URINE LEUKOCYTES-REFLEX TRACE (Negative); URINE NITRITE-REFLEX NEGATIVE (Negative); URINE PROTEIN (DIPSTICK) TRACE (Negative); URINE SPECIFIC GRAVITY <= 1.005 (1.005-1.035)
[2020-06-01 02:55] LABS: BACTERIA-REFLEX 1-9 Few /HPF (None Seen); CASTS None Seen /LPF (None Seen); CRYSTALS None Seen /LPF (None Seen); MUCUS 0-3 Light strn/LPF (None Seen); SQUAMOUS None Seen /LPF (0-3); URINE RBC 3-10 Few /HPF (0-2); URINE WBC-REFLEX 0-5 Rare /HPF (0-5)
[2020-06-01 02:56] LABS: YEAST-REFLEX Present (None Seen)
[2020-06-01 04:35] VITALS: BP 146/72
[2020-06-01 05:03] VITALS: BP 142/76
--- NOTE | 2020-06-01 05:30 | NUR ---
Pt. admitted to the unit from the emergency room accompanied by staff. She is alert and oriented. Admission assessment and history is completed. Pt. offers no c/o pain at this time.
[2020-06-01 07:42] VITALS: BP 146/71
--- NOTE | 2020-06-01 14:06 | NUR ---
PT ADMITTED RELATED TO HYPERGLYCEMIA, LABIA CELLULITIS, SEPSIS, AND VOMITING. CM REVIEWED CHART AND SPOKE WITH CARE TEAM. CM MET WITH PT AT BEDSIDE THIS DAY. PT APPEARED TO BE A&O X4. CM ROLE INTRODUCED. PT INDICATED SHE LIVES IN A HOUSE WITH HER SIG OTHER WITH 3 STEPS TO ENTER AND NO STEPS SHE NEEDS TO USE INSIDE. PT INDICATED ALL NEEDS ON ONE LEVEL. 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 PT INDICATED SHE HAS A FWW AND A CPAP FOR HOME USE. PT INDICATED SHE HAD BEEN TO 5N AND HAD [facility] IN THE PAST. PT INDICATED SHE WOULD BE RECEPTIVE TO POST ACUTE CARE STAY OR HH SERVICES IF NEEDED UPON DC. CM FOLLOWING REGARDIGN DC PLANNING.
[2020-06-01 14:50] VITALS: BP 181/83
--- NOTE | 2020-06-01 16:51 | NUR ---
ASSUMED CARE AT 0700. PATIENT SLOWLY PROGRESSING TOWARDS THE PLAN OF CARE.
[2020-06-01 19:48] VITALS: BP 142/71
--- NOTE | 2020-06-02 04:37 | NUR ---
Pt. rested quietly at intervals during the night when checked on during frequent rounds. She c/o pain to her tej area and po pain med given (see emar) with some relief noted. Ambulated to the bathroom with assist of one person.
[2020-06-02 08:06] VITALS: BP 153/73
--- NOTE | 2020-06-02 14:35 | NUR ---
ASSUMED PT CARE THIS AM. PT VSS, A&OX4. PATIENT PLEASANT AND ABLE TO MAKE NEEDS KNOWN. PATIENT GIVEN JUSTICE CARE PRIOR TO SURGERY. PATIENT REPORTS HAVING NO PAIN WHEN RESTING. I&D COMPLETED TODAY OF ABSCESS. PATIENT UP WITH MINIMAL ASSIST TO THE BATHROOM. IV PATENT. FALL PRECAUTIONS IN PLACE.
--- NOTE | 2020-06-02 16:03 | NUR ---
PT HAD SURGICAL I&D THIS DAY. PT CONTINUES ON IV ABX. CM FOLLOWING REGARDING DC PLANNING.
[2020-06-02 19:58] VITALS: BP 126/57
--- NOTE | 2020-06-03 06:00 | NUR ---
Pt. nauseated during the shift and zofran not helpful and Justine ONEAL notified and pt. given compazine (see cpoe,emar) with some relief noted. Ileostomy broke loose and ileostomy changed. Bed alarm is on.
[2020-06-03 07:51] VITALS: BP 155/76
--- NOTE | 2020-06-03 08:07 | NUR ---
Pt. rested quietly at intervals during the night when checked on during frequent rounds. Po pain med given for c/o tej area pain with some relief noted. She has had a moderate amount of bleeding from I&D incision. Dressing reinforced with abd dressing.
--- NOTE | 2020-06-03 13:09 | NUR ---
RN agrees with MEMORIAL COUNSELOR assessment.
--- NOTE | 2020-06-03 14:33 | NUR ---
PT IS POD #1 FROM I&D. PT HAS TANGELA DRAIN IN PLACE. CARE TEAM INDICATED THAT PT ISN'T YET DC READY NOT ABLE TO TAKE MEDS BY MOUTH. THERAPY ASSESSED AND INDICATED THAT PT WOULD BENEFIT FROM POST ACUTE CARE STAY. CM SPOKE WITH PT AND SHE IS RECEPTIVE TO 5N CONSULT. THEY ARE TO ASSESS TOMORROW. CM FOLLOWING REGARDING DC PLANNING.
[2020-06-03 15:36] VITALS: BP 120/65
--- NOTE | 2020-06-03 16:18 | NUR ---
ASSUMED CARE OF PATIENT AT SHIFT CHANGE. ASSESSMENT CHARTED. MEDICATIONS ADMINISTERED PER EMAR CRUSHED IN PUDDING. BP ELEVATED; CLONADINE PATCH ON L ARM AND BP MEDS ADMINISTERED. PATIENT ALERT TO SELF AND ANSWERS YES AND NO BUT CONFUSED. APPEARS IN PAIN AND SPLINTS L ARM. PRN ANALGESIC APPEARING TO PROVIDE RELIEF. PATIENT STILL ON BEDREST AND INCONTINENT. RESTLESS BUT NOT TRYING TO GET OOB THIS DAY. CM WORKING W PATIENTS FAMILY ON PATIENT RETURNING HOME W HOSPICE SERVICE. FAMILY AT BEDSIDE. PATIENT TO LEAVE W [facility] TRANSPORT AT APPROX 1830. WILL CONTINUE TO MONITOR UNTIL DISCHARGE
--- NOTE | 2020-06-03 17:48 | NUR ---
PATIENT CARE ASSUMED AT 0700. A&OX4 AND MAKES NEEDS KNOWN. C/O PAIN ON GROIN AREA. DRESSINGS NEEDS CHANGED Q2HRS FOR DRAINAGE. PRN PAIN MEDICATION ADMINISTERED. TOLERATING PO INTAKE WELL. PATIENT WORKED W PT AND WILL BE ASSESSED FOR REHAB. PATIENT IS UPX1 W WALKER VOICING PAIN. WOUND CARE AND PACKING REDRESSED BY SURGEON. FSBS STILL HIG. FALL PRECAUTIONS IN PLACE. PATIENT VOICES NO OTHER NEEDS. WILL CONTINUE TO MONITOR AND FOLLOW PLAN OF CARE
[2020-06-03 20:22] VITALS: BP 123/60
--- NOTE | 2020-06-04 03:23 | NUR ---
ASSESSED AT START OF SHIFT. A&OX4 UP WITH SBA TO THE BATHROOM. IV INTACT AND ABX GIVEN. LEFT LABIA DRESSING INTACT ABD GAUZE CHANGED. BSG CHECKED AND INSULIN GIVEN. PT ON RA. SCD'S ON BLE. FALL PREC IN PLACE AND CALL .LIGHT AT REACH WILL CONT TO MONITOR.
[2020-06-04 08:40] VITALS: BP 137/65
--- NOTE | 2020-06-04 12:05 | NUR ---
ASSUMED PT CARE THIS AM. PT VSS, A&OX4. PATIENT PLEASANT AND ABLE TO MAKE NEEDS KNOWN. DRESSING TO LEFT LABIA CHANGED OLD DRESSING WAS REMOVED WHEN PATIENT USED THE RESTROOM. PATIENT HAS REMAINED CONTINENT AND IS ABLE TO AMBULATE TO THE BATHROOM WITH MINIMAL ASSIST. ON ROOM AIR. REPORTS PAIN MEDICATION THAT WAS BEING GIVEN PRIOR TO THIS SHIFT DID NOT MANAGE THE PAIN, ONLY MADE THE PATIENT FEEL OFF. PHYSICIAN MADE AWARE AND NEW PAIN MEDICATION ORDERED. PATIENT REMAINS ON TELEMETRY. CALL LIGHT WITHIN REACH. IV APTENT, SALINE LOCKED.
[2020-06-04] MEDS ORDERED: CEFDINIR300 MG PO (14:00)
[2020-06-04] MEDS ORDERED: AMOXICILLIN500 M1 PO (14:04)
--- NOTE | 2020-06-04 15:14 | NUR ---
PT HAS BEEN ACCEPTED TO ACUTE INPATIENT REHAB UNIT. CARE TEAM INDICATED THAT PT IS MEDICALLY STABLE TO DC TO [facility] THIS DAY. PT IS AWARE AND AGREEABLE. CM FOLLOWING REGARDING DC PLANNING.
[2020-06-04 15:16] VITALS: BP 134/61
== END 2020-06-04 16:35 | DRG 854 ==
LOC: ER 21:35 → EROBS 06-01 02:55 → 4W 06-01 02:55
PROVIDERS: Emergency Medicine; ADMIT Family Medicine; ATTEND Family Medicine
PROC: 0U9M00Z Drainage of Vulva with Drainage Device, Open Approach (ICD-10-PCS; principal; 2020-06-02)
DX: A41.9 Sepsis, unspecified organism (principal); N76.4 Abscess of vulva; N17.9 Acute kidney failure, unspecified; N18.4 Chronic kidney disease, stage 4 (severe); R65.20 Severe sepsis without septic shock; M19.90 Unspecified osteoarthritis, unspecified site; N76.2 Acute vulvitis; G43.909 Migraine, unspecified, not intractable, without status migrainosus; K21.9 Gastro-esophageal reflux disease without esophagitis; E11.40 Type 2 diabetes mellitus with diabetic neuropathy, unspecified; E11.65 Type 2 diabetes mellitus with hyperglycemia; F32.9 Major depressive disorder, single episode, unspecified; E03.9 Hypothyroidism, unspecified; E11.22 Type 2 diabetes mellitus with diabetic chronic kidney disease; R53.81 Other malaise; K30 Functional dyspepsia; I12.9 Hypertensive chronic kidney disease with stage 1 through stage 4 chronic kidney disease, or unspecified chronic kidney disease; Z20.822 Contact with and (suspected) exposure to COVID-19; Z79.4 Long term (current) use of insulin; Z88.8 Allergy status to other drugs, medicaments and biological substances; Z90.710 Acquired absence of both cervix and uterus; Z91.041 Radiographic dye allergy status; Z90.49 Acquired absence of other specified parts of digestive tract; Z95.1 Presence of aortocoronary bypass graft; Z86.73 Personal history of transient ischemic attack (TIA), and cerebral infarction without residual deficits; Z86.14 Personal history of Methicillin resistant Staphylococcus aureus infection; I25.2 Old myocardial infarction; Z91.02 Food additives allergy status
CPT/HCPCS: 10045; 50010; 50101; 50386; 56525; 57092; 62110; 62900; 70005

== ENCOUNTER 2020-06-04 14:10 | Inpatient (IN) | payer OTHER ==
[~2020-06-04] VITALS: Ht 170.2 cm; Wt 79.9 kg
[~2020-06-04 14:10] MED LIST changes: +AMOXICILLIN500 M1 PO
[2020-06-04 16:30] VITALS: BP 147/61
[2020-06-04 18:39] LABS: CALCIUM 8.7 mg/dL (8.5-10.1); CREATININE 2.1 mg/dL (0.6-1.0); POTASSIUM 4.5 mmol/L (3.5-5.1)
--- NOTE | 2020-06-04 19:00 | NUR ---
PT ARRIVED OT UNIT AROUND 1630, AND TRANSFERRED WITH MIN TO MODERATE ASSIST FROM WC TO BED. PT NOTED FEELING VERY WEAK, AND WAS EXCITED TO START REHAB. NOTED THAT PT HAS TANGELA DRAIN INTACT TO LEFT GROIN AND LEFT LABIA, SUTURES INTACT AND DRAIN IS LEAKING ONTO ABD PAD. PT NOTED THAT SHE HAS NOT HAD A BM IN A FEW DAYS, BUT THAT SHE DOESN'T WANT TO GET DIARRHEA FROM [facility] DUE TO THE LABIAL ABCESS. SHE STATED THAT IT IS PAINFUL TO SIT ON THE WOUNDS, AND WAS ASSISTED TO LAY BACK TO RELIEVE PRESSURE ON THE AREA. PT LATER TREATED WITH HYDROCODONE FOR PAIN WITH GOOD RESULTS. REPORT GIVEN TO ONCOMING SHIFT AND PT IS NOW RESTING COMFORTABLY IN THE BED.
[2020-06-04 20:10] VITALS: BP 127/60
--- NOTE | 2020-06-05 04:06 | NUR ---
PT ASSESSMENT COMPLETED AND VSS. MEDS GIVEN ORDERED AND WELL TOLERATED. FALL PRECAUTIONS IN PLACE. GROIN DRAIN INTACT. PT UP TO THE BATHROOM WITH ASST/GAIT/WALKER. VOIDING MODERATE AMOUNT OF YELLOW URINE. PRN PAIN MEDICATION HELPFUL FOR LEVEL 7-8 PAIN. SLEEPING WELL AT THIS TIME. SCDS ON. WILL CONTINUE TO MONITOR FREQUENTLY.
[2020-06-05 04:59] LABS: HEMATOCRIT 31.2 % (37.0-47.0); HEMOGLOBIN 10.2 gm/dL (12.0-15.0); MCH 30.9 pg (26.0-34.0); MCHC 32.7 g/dL (28.0-37.0); MCV 94.5 fL (80.0-100.0); RBC 3.3 mil/uL (4.20-5.00); RDW 15.2 % (10.5-14.5); WBC 12.3 thou/uL (4.0-11.0)
[2020-06-05 05:13] LABS: CREATININE 2.1 mg/dL (0.6-1.0); POTASSIUM 4.6 mmol/L (3.5-5.1)
[2020-06-05 07:15] VITALS: BP 133/55
[2020-06-05 11:59] LABS: FOLIC ACID 17.4 ng/mL (8.6-58.9)
--- NOTE | 2020-06-05 12:52 | NUR ---
Nutrition: Received consult stating "appetite loss/food too salty". Recent intake documented as 100% of meals however pt reports she is eating <50% on carb controlled diet. BG 127-255. Provided pt with alternative menu and instructed on ordering meals. Only complained about one food item being too salty and denies offer of adding sodium restriction to diet order. Obtained food preferences. Stable weights reported. Low nutrition risk
--- NOTE | 2020-06-05 14:58 | NUR ---
ASSUMED CARE OF PT AT 0700 THIS MORNING. PT HAS ABCESS ON THE LABIA AND IS C/O PAIN WHEN IN SITTING POSITION. PT IS A/OX4, SKIN INTACT, W/D/P, NO TENTING NOTED, LUNGS CLEAR IN ALL HERNANDEZ, DISTAL PULSES PRESENT AND 2+. PULLEY MAINTAINER STRONG X4. ABD SOFT NON TENDER WITH ACTIVE BOWEL SOUNDS, ASSESSMENT OTHERWISE UNREMARKABLE. CALL LIGHT AND OTHER NEEDS ARE WITIN REACH.
--- NOTE | 2020-06-05 15:37 | NUR ---
CONSULT [id number] WAS COMPLETED BY THIS SENIOR MASTER SCHEDULER TODAY.
--- NOTE | 2020-06-05 16:19 | NUR ---
ASSESSMENT: CM REVIEWED CHART AND SPOKE WITH PATIENT. PT IS ALERT AND ORIENTED X4. PT LIVES IN A HOUSE WITH HER SIGNIFICANT OTHER. PT HAS ABOUT 3 STEPS WITH HANDRAIL TO ENTER AND NO STEPS SHE HAS TO USE ONCE INSIDE. PT REPORTS THAT SHE HAS A WALKER AT HOME TO ASSIST HER WITH AMBULATION WHEN NEEDED AND ALSO HAS A CPAP MACHINE. PT HAS BEEN TO 5N IN THE PAST AND HAS ALSO BEEN IN SERVICES WITH [facility] IN THE PAST. PT REPORTS IF SHE NEEDS HOME HEALTH THEN [facility] IS WHO SHE WOULD PREFER. CM WILL CONTINUE TO FOLLOW TO ASSIST NEEDED AND SEE HOW SHE PROGRESSES WITH THERAPY.
[2020-06-05 20:00] VITALS: BP 128/46
[2020-06-06 00:06] LABS: GLYCOHEMOGLOBIN (HGB A1C) 12.9 % (4.8-5.6)
--- NOTE | 2020-06-06 00:35 | NUR ---
PT ASSESSMENT COMPLETED AND VSS. MEDS GIVEN ORDERED AND WELL TOLERATED. FALL PRECAUTIONS IN PLACE. UP TO THE BATHROOM WITH ASST/GAIT/WALKER. STEADY. TANGELA DRAIN IN PLACE. PRN PAIN AND SLEEP MEDICATION WORKING WELL. PT SLEEPING. INSULIN GIVEN ORDERED AND SNACK PROVIDED. DENIES NEEDS. WILL CONTINUE TO MONITOR FREQUENTLY.
[2020-06-06 08:00] VITALS: BP 139/54
--- NOTE | 2020-06-06 09:08 | NUR ---
PT NEEDED ASSISTANCE TO BATHROOM. PT SEEMS TIRED THIS AM. PT SHOWED THIS SEED POTATO CUTTER HER DRAIN TO LABIA ON LEFT SIDE. NOTICED SERIOGANGEOUS DRAINAGE FROM DRAIN WHEN GETTING UP. GAVE PT BRIEF FOR DRAINAGE. PT UP WITH WALKER. PT STATED PAIN TO GROIN FEELS BURNING OF 7 ON 1-10 SCALE. PT TAKES MEDS WITH YOGART. ADM HYDROCODONE 10MG PO IN YOGART ALONG WITH REG. MEDS. PT STATED SHE WAS SICK OF TAKING ALL THESE MEDS. SHE STATED SHE WOULD RATHER . OFFERED PT TO TALK TO A PSYCHIATRIC DR. SHE DENIED AND STATED SHE HAS A MASTERS IN PSYCHOLOGY. SHE STATED HER BF WAS A DR. ALSO AND NOW HE IS A BAGGER AT A [employer] STORE DUE TO ILLNESS.
--- NOTE | 2020-06-06 12:44 | NUR ---
PT TOOK HYDROCODONE 10MG WITH WATER DUE TO PAIN OF 5 ON 1-10 SCALE. PT WAS SLEEPING PRIOR TO GIVING MEDICATION.
--- NOTE | 2020-06-06 18:16 | NUR ---
PT HAS BEEN AWAKE FOR DINNER. PT BOYFRIEND IS HERE IN THE CHAIR. PT HAS BEEN RESTING ON AND OFF TODAY. PT ALSO UP TO BATHROOM WITH WALKER WITH STEADY GAIT.
[2020-06-06 19:43] VITALS: BP 153/66
--- NOTE | 2020-06-07 01:58 | NUR ---
PATIENT C/O PAIN DURING URINATION BECAUSE URINE GETS ON HER WOUND. PAIN MEDICINE NOW AND ABD AGAINST TANGELA TO CATCH SMALL AMOUNT SEROSANGUINOUS DRAINAGE. PATIENT PREFERS TO LIE ON HER LEFT AND TO GET OUT OF BED ON HER LEFT TO AVOID PRESSING ON SWOLLEN LEFT LABIA. REVIEWED SSI DOSE OF INSULIN AT BEDTIME SHE IS ON A HIGH DOSE, FELT IT WOULD PROBABLY BE APPRORIATE CONSIDERING THE 3 OUNCES OF YOGURT SHE HAD WITH HER EVENING PILLS
[2020-06-07 07:15] VITALS: BP 130/43
--- NOTE | 2020-06-07 08:35 | NUR ---
PT LYING IN BED AND COMPLAINING OF TAKING MEDICATION. PT FRUSTRATED WITH PAIN TO GROIN. PT HAS TANGELA DRAIN IN AND OUT OF LEFT LABIA WITH BLOOD TINGED LIQUID. PT TAKES MEDS WITH YOGART. PT KNOWS TO SIT UP IN BED TO TAKE MEDS. PT LUNGS CLEAR. PT STATED PAIN IS 8 ON 1-10 SCALE AND FEELS STINGING.
--- NOTE | 2020-06-07 10:34 | NUR ---
ADM TRAMADOL 50MG PO FOR PAIN TO GROIN AREA OF 8 ON 1-10 SCALE.
--- NOTE | 2020-06-07 12:35 | NUR ---
PT RECIEVED HYDROCODONE 10MG PO FOR PAIN TO GROIN. PT STATED THAT PHYSICAL THERAPY WAS IN THE ROOM AND STATED SHE WOULD BE BACK AFTER LUNCH. PT STATED SHE WISHES SHE WOULD LIKE WHILE SHE IS UP TO WALK. PT STATED IT HURTS TO SIT FOR A PERIOD OF TIME.
--- NOTE | 2020-06-07 17:50 | NUR ---
PT GOT BACK TO BED FROM CHAIR AND YELLED OUT. ASSISTED PT TO BED. APPLIED ICE PACK TO GROIN AREA TO LEFT SIDE.
--- NOTE | 2020-06-07 18:00 | NUR ---
PT STATED WHEN SHE WENT TO BATHROOM SHE FELT ANOTHER LUMP THAT WAS IN GROIN.
[2020-06-07 19:50] VITALS: BP 122/51
--- NOTE | 2020-06-08 | NUR ---
UP TO TOILET TO VOID WITH SBA, GAIT BELT, AND WALKER. HYDROCODONE GIVEN WITH PAIN 7-8/10 IT WAS 4 HOURS AGO. PATIENT LYING ON LEFT SIDE TO AVOID PRESSURE ON LEFT SIDE INCREASING PAIN. ICE PACK APPLIED
[2020-06-08 07:15] VITALS: BP 129/52
--- NOTE | 2020-06-08 16:06 | NUR ---
PT ALERT AND ORIENTED TIMES FOUR. VSS. PT C/O PAIN PRN PAIN MEICATIONS CONTROLLING PAIN WELL. PT WORKED WELL WITH PT/OT TODAY. WILL CONTINUE TO MONITOR.
[2020-06-08 19:51] VITALS: BP 148/51
--- NOTE | 2020-06-09 02:11 | NUR ---
ASSUMED PT CARE AT CHANGE OF SHIFT, AWAKE, ALERT AND ORIENTED, PAIN MEDS GIVEN WITH RELIEF, ASSESSMENTS CHARTED, DENIES ANY CONCERNS, SLEPT WELL, NPO FOR EGD TODAY, L LABIA WITH SCANT DRAINAGE, STBY ASSIST TO THE BATHROOM WITH A WALKER, NO NEEDS AT THIS TIME, WILL CONTINUE TO MONITOR
[2020-06-09 05:36] LABS: ABSOLUTE NEUTROPHILS 6.8 thou/uL (1.4-8.2); BASOPHILS 0.5 % (0.0-2.0); EOSINOPHILS 2.1 % (0.0-3.0); HEMATOCRIT 31.9 % (37.0-47.0); HEMOGLOBIN 10.4 gm/dL (12.0-15.0); LYMPHOCYTES 21.3 % (24.0-44.0); MCHC 32.7 g/dL (28.0-37.0); MONOCYTES 7.4 % (1.0-8.0); PLATELET COUNT 342 thou/uL (150-400); POLYS 68.7 % (36.0-66.0); RBC 3.36 mil/uL (4.20-5.00); RDW 15.4 % (10.5-14.5); WBC 9.8 thou/uL (4.0-11.0)
[2020-06-09 05:53] LABS: CALCIUM 9.7 mg/dL (8.5-10.1); CREATININE 1.9 mg/dL (0.6-1.0); MAGNESIUM 1.9 mg/dL (1.8-2.4); POTASSIUM 4.2 mmol/L (3.5-5.1)
--- NOTE | 2020-06-09 08:20 | NUR ---
PT LYING IN BED THIS AM. PT NPO AT THIS TIME FOR EGD TODAY. PT STATED SHE FELT SWEATY LAST NIGHT AND WANTED NURSE TO PUT TEMP TO ROOM DOWN. PT STATED SHE DIDN'T FEEL RIGHT AND WANTED VITAL SIGNS DONE, PT STATED NO VS WAS DONE. PT STATED SHE WEARS A CPAP AT NIGHT AND THOUGHT THAT WAS A CAUSE, SHE HASN'T WORN ONE SINCE SHE HAS BEEN HERE. THIS CLOTH BALE HEADER STATED THAT HE CAN BRING HER CPAP. SHE STATED THAT HER /SIG OTHER HAS A BRAIN TUMOR AND HE IS FORGETFUL. SHE TALKED ABOUT HER DTR PASSING AWAY AT 43 FROM HEART ATTACK AND THE OTHER DTR DOESN'T SEE HER AND SHE CAN'T SEE THE GRANDKIDS DUE TO DTR, SAYING BAD THINGS ABOUT HER.
--- NOTE | 2020-06-09 09:00 | NUR ---
PT ABLE TO EAT BREAKFAST AT THIS TIME DUE TO SCHEDUAL CHANGE, PT WANTING TO HAVE PAIN MEDICATION. PT STATED PAIN IS TO BUTTOCKS OF 7 ON 1-10 SCALE. ADM HYDROCODONE 10MG PO FOR PAIN TO BUTTOCKS. SP AT BEDSIDE TO CHECK ON SWALLOWING. PT TAKES MEDS IN YOGART. SP REC. TAKING SMALL DRINKS OF WATER AFTER MED. PT SITTING ON BLOW UP RING FOR BUTTOCKS.
--- NOTE | 2020-06-09 09:49 | NUR ---
SINCE EGD CANCELLED ADM HYDROCODONE 10MG PO FOR PAIN TO GROIN, PAIN IS CONSISTANT WITH A 6 ON 1-10 SCALE. PT STATED FEELS LIKE A BURNING PAIN.
--- NOTE | 2020-06-09 13:14 | NUR ---
ADM TRAMADOL 50MG PO FOR PAIN TO GROIN AREA OF 6 ON 1-10 SCALE.
--- NOTE | 2020-06-09 13:40 | NUR ---
team meeting, recommendation: diet mech soft with thin liquid. skin breakdown, new order for low air loss mattress. egd tomorrow. drain fell out yesterday. spouse works outside the home. she works glazing department supervisor. dc 06/16 [facility] (nursing, pt, ot, st, and sw). no dme needs.
--- NOTE | 2020-06-09 14:22 | NUR ---
ADM HYDROCODONE 10MG PO FOR PAIN TO GROIN OF 6 ON 1-10 SCALE. PT WORKING WITH THERAPY.
[2020-06-09 19:51] VITALS: BP 132/51
--- NOTE | 2020-06-09 20:27 | NUR ---
ADM HYDROCODONE 10MG PO FOR PAIN TO BUTTOCKS. PT BS 143. WAS NOT OBTAINED AT DINNER TIME. PT TOOK MEDS WITH YOGART.
--- NOTE | 2020-06-10 06:29 | NUR ---
ASSUMED CARE OF PT AT 1930 ON 06/09/20. PT IS A&OX4. IS ON ROOM AIR. DENIES PAIN IN GROIN AT THIS TIME. IS STABLE. REMAINS NPO FOR EGD THIS AM SINCE MIDNIGHT. IS UP WITH 1 ASSIST, GB, WALKER TO BATHROOM. FALL RPECAUTIONS & HOURLY ROUNDING MAINTAINED. LABS & VITALS REVIEWED. PT IS ABLE TO REPOSITION SELF IN BED. IS CURRENTLY RESTING COMFORTABLY. CALL LIGHT WITHIN REACH. CPAP ON. WILL CONTINUE TO MONITOR.
[2020-06-10 07:32] VITALS: BP 144/61
--- NOTE | 2020-06-10 08:15 | NUR ---
ASSUMED CARE AT 0700. PATIENT IS ALERT AND ORIENTED X4. PATIENT CALDERÓN'S, CLEANING MANAGER ARE EQUAL. LUNGS ARE CLEAR. ABD IS SOFT WITH BSX4. PATIENT IS NPO FOR EGD AT NOON. PATIENT IS UP WITH ONE STAFF AND GAIT BELT. RIGHT GROIN HAS NO DRAIN ANY LONGER. FALL AND SAFETY PROTOCOLS IN PLACE. CONTINUES TO PROGRESS SLOWLY TOWARDS D/C GOALS. S.L. IN PATIENTS LEFT HAND WAS REMOVED R/T LEAKING WHEN FLUSHED. WILL CONTINUE TO MONITER.
--- NOTE | 2020-06-10 08:35 | NUR ---
ON 06/09/20 IN PM PT WAS OBSERVED SITTING IN DINING ROOM CHAIR FOR 30-60 MINUTES WITHOUT GRIMACING OR OFFLOADING WOUND REGION. PT WAS IN DINING ROOM WITH S.O. PT LATER AMB BACK TO ROOM WITH S.O. WITH RW WITHOUT SOB, WITHOUT GRIMACING. PT ACKNOWLEDGED TOLERATING SITTING UP, STATED SHE HAD PILLOW ON SEAT.
--- NOTE | 2020-06-10 12:19 | NUR ---
TO [facility] PER CART FOR EGD. WILL CONTINUE TO MONITER PER HER RETURN TO THE FLOOR.
--- NOTE | 2020-06-10 13:53 | NUR ---
referral to [facility] for hh needs at [facility] will accept for hh service.
[2020-06-10 19:31] VITALS: BP 131/48
--- NOTE | 2020-06-11 02:46 | NUR ---
ASSESSED AT START OF SHIFT, PT A&OX4 EVENING MEDS GIVEN WHOLE WITH PUDDING. PT UP WITH SBA TO THE BATHROOM. SOMETIMES GETS UP WITHOUT CALLING. FALL PREACAUTIONS MAINTAINED. HYDROCODONE GIVEN FOR PAIN. PT CONERNED ABOUT BEING CONSTIPATED. MIRALAX GIVEN. WILL CONT TO MONITOR.
[2020-06-11 08:00] VITALS: BP 149/65
--- NOTE | 2020-06-11 16:27 | NUR ---
PT ALERT AND ORIENTED TIMES FOUR, WITH FLAT SAD AFFECT. VSS, PT C/O PAIN PRN PAIN MEDICATIONS GIVEN WITH SOME RELEIF. PT TOLERATES MEDS AND MEALS. PT WORKS WELL WITH PT/OT TODAY. PT PROGRESSING TOWRADS POC GOALS.
[2020-06-11 20:05] VITALS: BP 119/47
--- NOTE | 2020-06-12 03:44 | NUR ---
Assumed pt care at 1900. A/OX4,VSS. Pt is up with SBA RW/GB.Doesn't always call for help,fall safety education reinforced and precautions implemented. C/o back pain,medicated with Tramadol with relief reported. Incision on left labia open to air,well approximated,sore and bleeding slightly;wears a brief. Lidocaine cream applied. Resting quietly at this time w/o any distress noted, CPAP in place. Will continue to monitor pt.
[2020-06-12 08:00] VITALS: BP 150/54
--- NOTE | 2020-06-12 09:25 | NUR ---
PT WORKING WITH THERAPY. PT LYING IN BED. PT DIDN'T WANT TO SIT UP TO TAKE MEDICATION, THIS BANK VAULT ATTENDANT RAISED HOB FOR MED, PT STATED TO PUT HEAD BACK DOWN. TERESA STUD SHEEP FARMER CAME TO ROOM AND STATED THAT SHE NEEDS TO SIT UP TO TAKE MEDS. PT STATED WELL I COUGH WHEN I SIT UP TOO. PT DID TAKE TRAMADOL 50MG PO FOR PAIN TO GROIN OF 6 ON 1-10 SCALE. PT STATED PAIN IS THE SAME, NOTHING HAS CHANGED.
--- NOTE | 2020-06-12 09:57 | NUR ---
PT SITTED UP IN CHAIR AFTER BUSINESS TECHNOLOGY ANALYST SEEN PT. PT WANTED TO GO BACK TO BED AFTER THERAPY. PT STATED HER STOOL WAS SMALL AND HARD. ADM COLACE 100MG FOR CONSTIPATION. ALSO ADM LIDOCAINE OINT TO PERNEUM AREA, DID FEEL A COUPLE OF FIRM AREAS, NO OPEN SKIN NOTED. PT REFUSED MIRALAX AT THIS TIME.
--- NOTE | 2020-06-12 11:59 | NUR ---
ADM HYDROCODON 10MG PO FOR PAIN TO BUTTOCKS OF 7 ON 1-10 SCALE. PT WALKED OUTSIDE WITH THERAPY. PT COMPLAINED OF BEING SOB AND WANTING TO SEE THE TITLE CLOSER. THIS IS A NEW REQUEST FROM THIS PT TODAY.
--- NOTE | 2020-06-12 12:10 | NUR ---
PT SITTING IN DINING ROOM AND FRUSTRATED ABOUT NOT BEING ABLE TO BREATH AFTER THERAPY. PT ALSO DROPPING THINGS TO RT HAND AND SHE STATED SHE DROPS STUFF A LOT ALL DAY LONG. PT UPSET ABOUT NOT GETTING PULLED PORK SANDWHICH DUE TO BEING ALLERGIC TO TOMATOS. PT STATED SHE IS NOT ALLERGIC TO TOMATOS JUST THE PLANT. TOOK OFF TOMATO AN ALLERGY.
--- NOTE | 2020-06-12 12:26 | NUR ---
Nutrition followup: Pt continues to eat on average 50% of meals, highly variable. Pt S/P EGD on 06/10 with esophageal dilation done. GI stating may need periodic dilations. S/P I&D of vulvar abscess with drain, improving. 06/12 BM. No new weight since 06/04. Encouraged > 75% meal intake with good intake of HBV protein foods. Pt was preoccupied during visit as wrong tray had been delivered, awaiting correct one and was just wanting to eat. Requested new weight from nsg. Pt orders meals as desired. Will trial glucerna daily due to suboptimal intake at times. Plan D/C 06/16. Continue low risk,
[2020-06-12 17:52] VITALS: BP 118/53
--- NOTE | 2020-06-12 18:05 | NUR ---
PT LYING IN BED. ADM HYDROCODONE 10MG PO FOR PAIN TO BUTTOCKS OF 6 ON 1-10 SCALE. PT DID TAKE MEDS IN FRISIAN ICEY. PT HAS WORKED WITH THERAPY TODAY WITH WALKER.
[2020-06-12 19:53] VITALS: BP 132/66
--- NOTE | 2020-06-13 00:53 | NUR ---
PT ALERT AND ORIENTED X 4. AMB TO BR WITH WALKER AND ASSIST X 1 WITHOUT DIFFICULTY. IMPULSIVE AT TIMES. INSTRUCTED TO CALL FOR ASSISTANCE WHEN GETTING UP. BED ALARM ON FOR SAFETY. PT DENIES PAIN OR DISCOMFORT. PT TAKES MEDS IN YOGURT. BED ALARM ON FOR SAFETY. PT APPEARS TO BE SLEEPING ON HOURLY ROUNDS.
[2020-06-13 05:01] LABS: ABSOLUTE NEUTROPHILS 5.7 thou/uL (1.4-8.2); BASOPHILS 0.8 % (0.0-2.0); EOSINOPHILS 3.7 % (0.0-3.0); HEMATOCRIT 29.1 % (37.0-47.0); HEMOGLOBIN 9.9 gm/dL (12.0-15.0); LYMPHOCYTES 23.9 % (24.0-44.0); MCH 32.1 pg (26.0-34.0); MCHC 33.8 g/dL (28.0-37.0); MCV 94.9 fL (80.0-100.0); MONOCYTES 7.9 % (1.0-8.0); PLATELET COUNT 416 thou/uL (150-400); POLYS 63.7 % (36.0-66.0); RBC 3.07 mil/uL (4.20-5.00); RDW 15.9 % (10.5-14.5)
[2020-06-13 08:00] VITALS: BP 139/55
--- NOTE | 2020-06-13 14:47 | NUR ---
ASSUMED CARE AT 0700. A&OX4. REPORTS PAIN IN LEFT PELVIS AND LEFT LABIA. INCISION AT LEFT LABIA IS OPEN TO AIR, PATIENT WEARS BRIEF, SMALL AMOUNT OF DRAINAGE NOTED ON BRIEF. PAIN RATED AT 7/10, AND MANAGED WITH PRN NORCO AND REST. PATIENT TRANSFERS AND AMBULATES WITH STAND BY ASSISST WITH WALKER AND GAITBELT. MEDICATION AND INSULIN ADMINISTERD ORDERED. MEDICATION ADMNISTERED WHOLE IN PUDDING, WITH SIPS OF THIN LIQUIDS. NO SIGS OF ASPIRATION NOTED. NO CONCERNS AT THIS TIME, WILL CONTINUE TO MONITOR.
--- NOTE | 2020-06-13 18:18 | HC ---
[facility] [place] [address] CONSULTATION Name: ROLAND FOREMAN Room #: 512-P ADM IN M.R.#: [id number] Admission: 06/04/20 Attend Phys: Isaias Murillo MD Discharge: Date of : 49 Report #: [id number] THIS REPORT FOR: cc: Gary Simental MD, Neal A. MD Deutch, Neal B. PhD ~ DATE OF SERVICE: 06/06/2020 NEUROBEHAVIORAL STATUS EXAM ATTENDING PHYSICIAN: Isaias Murillo MD SENIOR QUALITY TECHNICIAN: Gary Myles, PhD CLINICAL PRESENTATION: The patient is a 75-year-old female admitted to the hospital on 06/01/2020 due to worsening of a left labial abscess and failed outpatient treatment. She has an admitting diagnoses to the rehabilitation unit of medical complexity and generalized debilitation, left labial abscess, status post incision and drainage on 06/02/2020, uncontrolled type 2 diabetes mellitus, chronic nausea, acid indigestion, hypothyroidism, hypertension, probable cognitive and memory deficits and questionable dysphagia. A complete description of her medical condition and history can be found in her medical record. Neuropsychological consultation was requested to provide assistance in the assessment of cognitive and emotional status and provide recommendations and services. Prior to this most recent admission, she was living with the assistance of her boyfriend in their home. The patient was managing her own bill payment but her boyfriend was managing her medication. She had 2 children. One child several years ago from heart disease. 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 Driving was discontinued about 4 months ago prior to this hospitalization. She indicates having obtained 2 master's degrees. TECHNIQUES UTILIZED: Clinical interview, review of medical records, staff consultation and behavioral observations, mini mental status exam 2 standard version, clock drawing. EXAMINATION FINDINGS: The patient was alert and cooperative with the assessment. She accurately described events surrounding her hospitalization. She reported a period of confusion and disorientation associated with pain medication, which led to delusional ideation. Pain is described as severe. Previors bypass surgery and history of CVA are described as having resulted in declining independence. Symptoms are reported to include appetite, difficulty [facility] [address] [place] [address] CONSULTATION Name: THOM FOREMANH Room #: [address] [place] [address] [place] ..#: [id number] Admission: 06/04/20 Attend Phys: Isaias Murillo MD Discharge: Date of : 49 Report #: [id number] with memory, depression and anxiety. The patient had difficulty with thought organization during the interview with intermittent confusion. Her performance on the MMSE 2 brief version was in the mild range of impairment with a raw score of 13/16. She was 3/3 for initial registration, 4/5 for orientation to time and 5/[address]. She was 1/3 for immediate recall of 3 items after a brief time delay and distraction. Her performance was in the borderline range on the MMSE 2 standard version with a raw score of 23/30, T score of 34, percentile rank of 5. The patient was drowsy during the assessment, which may have impacted performance. She was 2/5 for serial 7s, 2/2 for naming, 1/1 for repetition, 3/3 for auditory comprehension, reading and writing were within normal limits. The patient had difficulty with copying a simple geometric design. She was also inaccurate in hand placement on clock drawing. The patient is presenting with cognitive deficits suggesting at least moderate impairment. Sedation from pain medication, depression and anxiety may also be contributing to her performance. DIAGNOSTIC IMPRESSION: Neurocognitive disorder - extent to be determined, likely in the moderate range with vascular and possibly Alzheimer type features. Unspecified Depressive Disorder Adjustment disorder with anxious mood. RECOMMENDATIONS: Reduce as medically appropriate medication with sedating features. She does report taking multiple narcotics with poor results. Use of an antidepressant medication with analgesic features, e.g.,Cymbalta. Consider psychiatric consultation to assist with selection of antidepressant. Followup neuropsych assessment upon stabilization of her medical condition will also be of benefit to clarify cognitive status. Thank you very much for allowing me to provide the consultation on this patient. <ELECTRONICALLY SIGNED> By: Gary Myles, PhD 06/13/20 1818 [id number] Gary Myles, PhD /nt
[2020-06-13 19:30] VITALS: BP 129/51
--- NOTE | 2020-06-14 00:21 | NUR ---
PT ALERT AND ORIENTED X 4. AMB TO BR WITH WALKER AND ASSIST X 1 WITHOUT DIFFICULTY. IMPULSIVE AT TIMES. PT INSTRUCTED TO CALL FOR ASSISTANCE WHEN GETTING UP. PT TAKES MEDS WITH YOGURT WITHOUT DIFFICULTY. PT DENIES PAIN OR DISCOMFORT. BED ALARM ON FOR SAFETY. CPAP ON DURING THE NIGHT. PT APPEARS TO BE SLEEPING ON HOURLY ROUNDS.
--- NOTE | 2020-06-14 06:39 | NUR ---
INCISION LEFT LABIA C/D/I. MODERATE AMT PINK DRAINAGE THIS MORNING. LIDOCAINE GEL APPLIED TO AREA.
[2020-06-14 08:00] VITALS: BP 126/41
--- NOTE | 2020-06-14 19:29 | NUR ---
ASSUMED CARE OF PT AT 0715. PT IS A&OX4. IS ON ROOM AIR. REPORTS PAIN IN BACK & GROIN THAT IS BEING MANAGED WITH PAIN MEDS & OTHER THERAPUETIC TECHNIQUES. PT IS IMPULSIVE AT TIMES & DOES NOT CALL FOR ASSISTANCE. PT HAS BEEN REEDUCATED REGARDING FALL PRECAUTIONS & TO CALL FOR ASSISTANCE. FALL PRECAUTIONS & HOURLY ROUNDING CONTINUED THIS SHIFT. IS STABLE. GROIN SITES HEALING. LIDOCIANE APPLIED. JUSTICE CARE GIVEN. LABS & VITALS REVIEWED. PT IS CURRENTLY IN ROOM, IN BED. CALL LIGHT WITHIN REACH. USES CPAP AT HS.
[2020-06-14 19:52] VITALS: BP 135/52
--- NOTE | 2020-06-14 22:40 | NUR ---
PT ASSESSMENT COMPLETED AND VSS. MEDS GIVEN ORDERED AND WELL TOLERATED. FALL PRECAUTIONS IN PLACE. UP TO THE BATHROOM WITH ASST/GAIT/WALKER. STEADY. VOIDING MODERATE AMOUNT OF YELLOW URINE. INSULIN GIVEN ORDERED. SLEEPING WELL. WILL CONTINUE TO MONITOR FREQUENTLY.
[2020-06-15 05:43] LABS: CALCIUM 9.1 mg/dL (8.5-10.1); POTASSIUM 4.4 mmol/L (3.5-5.1)
--- NOTE | 2020-06-15 06:24 | NUR ---
PT REFUSED ALL MORNING MEDS AND WANTS TO TAKE THEM WITH HER BREAKFAST.
[2020-06-15 07:15] VITALS: BP 141/62
--- NOTE | 2020-06-15 17:06 | PATH ---
[facility] [place] [address] PATHOLOGY RPT PROCEDURE Name: CIARA FOREMAN Room #: 512-P ADM IN M.R.#: [id number] Admission: 06/04/20 Date of : 49 Discharge: Report #: [id number] Path Case #: [id number] [facility] Accession Number: [id number] . 01 Material submitted: . PART A: gastrointestinal site - BIOPSY GASTRITIS PART B: esophagus - BIOPSY DISTAL ESOPHAGUS. Modifiers: distal PART C: esophagus - BIOPSY OF ULCER AND DISTAL ESOPHAGUS. Modifiers: distal . 01 Clinical history: . MEDICAL COMPLEXITY WITH GENERAL DEBILITATION PRE OP: DYSPHAGIA EGD POST OP: GASTRITIS, ESOPHAGEAL ULCER FOR B- RULE OUT CLAY'S FOR C- RULE OUT CMV,HERPES . 02 Diagnosis: A. Gastric mucosa, gastritis, rule out H. pylori, endoscopic biopsy: - Moderate reactive gastropathy. - Negative for intestinal metaplasia or atrophy. - Negative for Helicobacter pylori (properly controlled immunohistochemical stain performed). . B. Gastroesophageal mucosa, distal esophagus, rule out Clay's, endoscopic biopsy: - Gastric cardia-type mucosa with moderate chronic inflammation and reactive changes. - Negative for intestinal metaplasia or dysplasia. - Squamous mucosa with mild esophagitis. . C. Squamous mucosa, ulcer distal esophagus, endoscopic biopsy: - Fragments of fibrinopurulent material without attached mucosa, consistent with ulceration. - Squamous mucosa with mild esophagitis. - Negative for intestinal metaplasia or dysplasia. (IUV:pit 06/12/2020) [facility] 06/12/2020 1248 Local . 02 Comment: CMV*, HSV I*, and GMS fungal special stains are ordered on block C1 and the results of this will be reported in an addendum to follow. (IUV:pit 06/12/2020) . *This test was developed and its performance characteristics determined by [facility]. It has not been cleared or approved by the U.S. Food and Drug Administration. The FDA has determined that such clearance or approval is [address] [address] PATHOLOGY RPT PROCEDURE Name: CIARA FOREMAN Room #: 512-P [facility] IN M.R.#: [id number] Admission: 06/04/20 Date of : 49 Discharge: Report #: [id number] Path Case #: [id number] not necessary. This test is used for clinical purposes. It should not be regarded as investigational or for research. This laboratory is certified under the Clinical Laboratory Improvement Amendments of 1988 (CLIA) as qualified to perform high complexity clinical laboratory testing. . 02 Addendum: . Addendum is issued subsequent to reviewing well-controlled stains. . Block C1 . Special stain GMS - No definite fungal elements identified. . *CMV immunohistochemical stain - No definite CMV identified. . *HSV1 immunohistochemical stain - No definite herpes identified. . The originally rendered diagnosis remains unchanged. . (IUV:assisted living assistant; 06/15/2020) . . Professional services performed by [facility] at [facility], [address], [place] [address]. Technical services performed by [facility] at [address] [place] [address], [address], [place] [address]. . . *This test was developed and its performance characteristics determined by [facility]. It has not been cleared or approved by the U.S. Food and Drug Administration. The FDA has determined that such clearance or approval is not necessary. This test is used for clinical purposes. It should not be regarded as investigational or for research. This laboratory is certified under the Clinical Laboratory Improvement Amendments of 1988 (CLIA) as qualified to perform high complexity clinical laboratory testing. MBR/06/15/2020 Addendum Electronically Signed by Selene Walker MD, Pathologist . 02 Electronically signed: . Selene Walker MD, Pathologist NPI- [id number] . 01 Gross description: . A. Received in formalin labeled "Ciara Foreman, BX gastritis rule out H. pylori" are multiple servin-brown soft tissue fragments measuring in aggregate 1.6 x 0.3 x 0.1 cm. The specimen is submitted entirely in A1. . B. Received in formalin labeled "Tinberg Goldenbird, Ciara, BX distal esophagus" are multiple servin-brown soft tissue fragments measuring in [facility] [address] [place] [address] PATHOLOGY RPT PROCEDURE Name: CIARA FOREMAN Room #: 512-P ADM IN M.R.#: [id number] Admission: 06/04/20 Date of : 49 Discharge: Report #: [id number] Path Case #: [id number] aggregate 0.8 x 0.3 x 0.1 cm. The specimen is submitted entirely in B1. . C. Received in formalin labeled "Ciara Foreman, Bx of ulcer, distal esophagus" are multiple servin-brown soft tissue fragments measuring in aggregate 0.5 x 0.3 x 0.1 cm. The specimen is submitted entirely in C1. ([facility]; 06/11/2020) [facility] 06/11/2020 1208 Local . 02 Pathologist provided ICD-10: K31.9, K20.90 . 02 CPT . 994761, 167105, 613214, [id number], M73492, [id number] Specimen Comment: A courtesy copy of this report has been sent to [phone] Specimen Comment: [id number] Specimen Comment: Report sent to and Performed at: 01 [facility] [address] [place] [address] [address], [place] [id number] MD Greg Hester MD Phone: [phone] Performed at: [address] [id number] MD Selene Walker MD Phone: [phone]
[2020-06-15 19:30] VITALS: BP 140/68
--- NOTE | 2020-06-15 19:44 | NUR ---
Assumed pt care at 0700. pt was calm and unco-operative with care. pt took 7am and 9am meds together. pt was Alert and oriented x4. Assessments completed, vss. Meds were administered as ordered. pt goes to the bathroom without calling for assistance. PT IS ON FALL PRECAUTION. aMBULATES WITH A WALKER. C/O OF PAIN. PAIN MED ADMINISTERED ORDERED. tOOK MEDS WHOLE WITH YOGURT. WILL CONTINUE TO MONITOR.
--- NOTE | 2020-06-15 23:47 | NUR ---
PT ASSESSMENT COMPLETED AND VSS. MEDS GIVEN ORDERED AND WELL TOLERATED. FALL PRECAUTIONS IN PLACE. SUPPORTIVE AT BEDSIDE EARLY DURING SHIFT. PRN PAIN AND SLEEP MEDICATION HELPFUL. INSULIN GIVEN ORDERED. UP TO THE BATHROOM WITH ASST/GAIT/WALKER. SLEEPING WELL. WILL CONTINUE TO MONITOR FREQUENTLY.
[2020-06-16 08:00] VITALS: BP 122/60
[2020-06-16] MEDS ORDERED: METHOCARBAMOL500 M2 PO (08:32)
[2020-06-16] MEDS ORDERED: SENNA8.6 MG PO (08:32)
[2020-06-16] MEDS ORDERED: CARAFATE 11 GM/10 M1 PO (08:32)
[2020-06-16] MEDS ORDERED: FERREX 150150 MG PO (08:32)
[2020-06-16] MEDS ORDERED: MIRALAX17 GM PO (08:32)
[2020-06-16 11:42] VITALS: BP 122/60
--- NOTE | 2020-06-16 12:08 | NUR ---
ASSUMED CARE AT 0700. PATIENT IS A&OX4. REQUESTED PREVIOUS SHIFT THAT HER 0600 MEDICATIONS BE ADMINISTERED AT BREAKFAST. PATIENT WAS ABLE TO TAKE PILLS ONE AT A TIME WITH YOGURT. INSULIN ADMINISTERED ORDERED. SELF REPORTED HAVING A SMALL BM THE NIGHT BEFORE LAST (06/14). AGREED TO TAKE BOTH SENNA AND MIRALAX THIS AM TO HELP WITH MOVING BOWELS. STAND BY ASSIT WITH TRANSFERS AND AMBULATION, USING WALKER AND GAIT BELT. C/O OF INCISIONAL PAIN, LEFT LABIAL AREA. PAIN MANAGED WITH PRN [facility]CO. SCANT DRAINAGE NOTED ON BRIEF FROM INCISION. NO S/S OF INFECTION NOTED. PLANNING TO DISCHARGE TODAY.
--- NOTE | 2020-06-16 13:02 | NUR ---
cont with dc today, after has bm. fátima botello [facility]. team meeting dc today. will transport her home.
--- NOTE | 2020-06-16 18:59 | NUR ---
PATIENT DISCHARGED AT 1750. LEFT WITH SIGNIFICANT OTHER, WAS ABLE TO WHEEL HERSELF TO ELEVATOR, AND ENTERED AUTOMOBILE INDEPENDENTLY. MEDICATION AND DISCHARGE EDUCATION PROVIDED. 1700 MEDS AND INSULIN FOR DINNER ADMINISITERED. SUPPOSITORY ADMINISTERED IN THE AFTERENOON WAS EFFECTIVE AND PATIENT HAD A SMALL FORMED BM BEFORE LEAVING.
== END 2020-06-16 17:50 | disposition home health service (06) | DRG 948 ==
PROVIDERS: Family Medicine; Nurse Practitioner; Nurse Practitioner Family; ADMIT Physical Medicine & Rehabilitation; ATTEND Physical Medicine & Rehabilitation
PROC: 0DB68ZX Excision of Stomach, Via Natural or Artificial Opening Endoscopic, Diagnostic (ICD-10-PCS; principal; 2020-06-10)
PROC: 0D758ZZ Dilation of Esophagus, Via Natural or Artificial Opening Endoscopic (ICD-10-PCS; principal; 2020-06-10)
PROC: 0DB38ZX Excision of Lower Esophagus, Via Natural or Artificial Opening Endoscopic, Diagnostic (ICD-10-PCS; principal; 2020-06-10)
PROC: 5A09557 Assistance with Respiratory Ventilation, Greater than 96 Consecutive Hours, Continuous Positive Airway Pressure (ICD-10-PCS; 2020-06-11)
DX: R53.81 Other malaise (principal); N18.4 Chronic kidney disease, stage 4 (severe); N76.4 Abscess of vulva; K22.10 Ulcer of esophagus without bleeding; R41.9 Unspecified symptoms and signs involving cognitive functions and awareness; F32.9 Major depressive disorder, single episode, unspecified; F43.29 Adjustment disorder with other symptoms; E78.5 Hyperlipidemia, unspecified; M19.90 Unspecified osteoarthritis, unspecified site; G43.909 Migraine, unspecified, not intractable, without status migrainosus; K21.9 Gastro-esophageal reflux disease without esophagitis; E11.40 Type 2 diabetes mellitus with diabetic neuropathy, unspecified; E03.9 Hypothyroidism, unspecified; I12.9 Hypertensive chronic kidney disease with stage 1 through stage 4 chronic kidney disease, or unspecified chronic kidney disease; E11.65 Type 2 diabetes mellitus with hyperglycemia; K30 Functional dyspepsia; R11.0 Nausea; R13.10 Dysphagia, unspecified; K44.9 Diaphragmatic hernia without obstruction or gangrene; E11.22 Type 2 diabetes mellitus with diabetic chronic kidney disease; Z86.73 Personal history of transient ischemic attack (TIA), and cerebral infarction without residual deficits; Z88.8 Allergy status to other drugs, medicaments and biological substances; Z91.041 Radiographic dye allergy status; Z91.02 Food additives allergy status; Z90.710 Acquired absence of both cervix and uterus; Z86.14 Personal history of Methicillin resistant Staphylococcus aureus infection; Z90.49 Acquired absence of other specified parts of digestive tract; Z95.1 Presence of aortocoronary bypass graft; Z87.11 Personal history of peptic ulcer disease
CPT/HCPCS: 10112; 62110; 62900; 70005

== ENCOUNTER 2020-12-05 12:07 | Emergency (ER) | payer OTHER ==
[~2020-12-05] VITALS: Ht 170.2 cm; Wt 86.2 kg
[~2020-12-05 12:07] MED LIST changes: +CARAFATE 11 GM/10 M1 PO; +SENNA8.6 MG PO
[2020-12-05 12:58] LABS: BASOPHILS 0.7 % (0.0-2.0); EOSINOPHILS 1.8 % (0.0-3.0); HEMATOCRIT 36.1 % (37.0-47.0); HEMOGLOBIN 12.1 gm/dL (12.0-15.0); LYMPHOCYTES 12.7 % (24.0-44.0); MCH 31.2 pg (26.0-34.0); MCHC 33.5 g/dL (28.0-37.0); MONOCYTES 5.5 % (1.0-8.0); PLATELET COUNT 241 thou/uL (150-400); POLYS 79.3 % (36.0-66.0); RBC 3.87 mil/uL (4.20-5.00); RDW 13.9 % (10.5-14.5); WBC 10.1 thou/uL (4.0-11.0)
[2020-12-05 13:23] LABS: CALCIUM 9.3 mg/dL (8.5-10.1); CREATININE 2.6 mg/dL (0.6-1.0); POTASSIUM 4.4 mmol/L (3.5-5.1)
[2020-12-05 13:34] LABS: ALBUMIN 3.8 g/dL (3.4-5.0); TOTAL BILIRUBIN 0.5 mg/dL (0.2-1.0); TOTAL PROTEIN 7.7 g/dL (6.4-8.2)
[2020-12-05 15:42] VITALS: BP 159/74
--- NOTE | 2020-12-06 07:36 | EKG ---
[place] [address] [facility] 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
== END 2020-12-05 15:42 | disposition home or self-care (01) ==
LOC: ER 12:07
PROVIDERS: Physician Assistant
DX: R00.2 Palpitations (principal); R07.89 Other chest pain; I12.9 Hypertensive chronic kidney disease with stage 1 through stage 4 chronic kidney disease, or unspecified chronic kidney disease; E11.22 Type 2 diabetes mellitus with diabetic chronic kidney disease; N18.4 Chronic kidney disease, stage 4 (severe); E78.5 Hyperlipidemia, unspecified; M19.90 Unspecified osteoarthritis, unspecified site; G43.909 Migraine, unspecified, not intractable, without status migrainosus; K21.9 Gastro-esophageal reflux disease without esophagitis; F32.9 Major depressive disorder, single episode, unspecified; E03.9 Hypothyroidism, unspecified; Z79.82 Long term (current) use of aspirin; Z90.49 Acquired absence of other specified parts of digestive tract; Z90.710 Acquired absence of both cervix and uterus; Z79.899 Other long term (current) drug therapy; Z91.041 Radiographic dye allergy status

== ENCOUNTER → 2020-12-14 | Outpatient (CLI) | payer OTHER | LOC: SJCVC 15:03 | PROVIDERS: ATTEND Internal Medicine | DX: I44.7 Left bundle-branch block, unspecified (principal); R94.31 Abnormal electrocardiogram [ECG] [EKG]; I13.0 Hypertensive heart and chronic kidney disease with heart failure and stage 1 through stage 4 chronic kidney disease, or unspecified chronic kidney disease; I50.32 Chronic diastolic (congestive) heart failure; E11.22 Type 2 diabetes mellitus with diabetic chronic kidney disease; N18.4 Chronic kidney disease, stage 4 (severe); I42.0 Dilated cardiomyopathy; I25.10 Atherosclerotic heart disease of native coronary artery without angina pectoris; E78.5 Hyperlipidemia, unspecified; G47.33 Obstructive sleep apnea (adult) (pediatric); I63.40 Cerebral infarction due to embolism of unspecified cerebral artery; Z95.1 Presence of aortocoronary bypass graft; Z82.49 Family history of ischemic heart disease and other diseases of the circulatory system; Z88.8 Allergy status to other drugs, medicaments and biological substances; Z79.82 Long term (current) use of aspirin; Z79.4 Long term (current) use of insulin; Z79.899 Other long term (current) drug therapy ==

== ENCOUNTER → 2020-12-25 | Outpatient (CLI) | payer OTHER | LOC: SJCVCIMAG 12-23 11:05 | PROVIDERS: ATTEND Internal Medicine | DX: I08.1 Rheumatic disorders of both mitral and tricuspid valves (principal); I11.0 Hypertensive heart disease with heart failure; I50.9 Heart failure, unspecified; I25.10 Atherosclerotic heart disease of native coronary artery without angina pectoris; I42.9 Cardiomyopathy, unspecified; E11.9 Type 2 diabetes mellitus without complications; R06.00 Dyspnea, unspecified; I44.7 Left bundle-branch block, unspecified ==

== ENCOUNTER → 2021-01-06 | Outpatient (CLI) | payer OTHER ==
[~2021-01-06] MED LIST changes: +CARVEDILOL25 MG PO; +MIRAPEX1 MG PO; +NOVOLIN 70100 UNIT/3 SUBQ; +VITAMIN B-1250 MC2 PO; +VITAMIN B122500 MCG PO
[2021-01-06 15:23] LABS: HEMATOCRIT 35.9 % (37.0-47.0); HEMOGLOBIN 12.1 gm/dL (12.0-15.0); MCH 31.1 pg (26.0-34.0); MCHC 33.8 g/dL (28.0-37.0); RBC 3.9 mil/uL (4.20-5.00); RDW 13.5 % (10.5-14.5); URINE BILIRUBIN NEGATIVE (Negative); URINE BLOOD 1+ (Negative); URINE CLARITY CLEAR; URINE COLOR YELLOW; URINE GLUCOSE-RANDOM* 3+ (Negative); URINE KETONES NEGATIVE (Negative); URINE LEUKOCYTES-REFLEX TRACE (Negative); URINE NITRITE-REFLEX NEGATIVE (Negative); URINE PROTEIN (DIPSTICK) 1+ (Negative); URINE UROBILINOGEN 0.2 E.U./dl (0.2-1.0); WBC 8.8 thou/uL (4.0-11.0)
[2021-01-06 15:34] LABS: ALBUMIN 3.3 g/dL (3.4-5.0); CALCIUM 9.3 mg/dL (8.5-10.1); CREATININE 2.2 mg/dL (0.6-1.0); POTASSIUM 5.3 mmol/L (3.5-5.1)
[2021-01-06 15:37] LABS: SQUAMOUS 0-3 Few /LPF (0-3)
[2021-01-06 15:38] LABS: CRYSTALS None Seen /LPF (None Seen); HYALINE CASTS 0-3 Few /LPF (None Seen); URINE RBC 3-10 Few /HPF (NONE SEEN); URINE WBC-REFLEX 6-15 Few /HPF (0-5); YEAST-REFLEX Present (None Seen)
[2021-01-06 15:39] LABS: INR 0.98; PROTIME 10.7 Seconds (10.5-12.1)
[2021-01-07 02:06] LABS: GLYCOHEMOGLOBIN (HGB A1C) 12.2 % (4.8-5.6)
== END ==
LOC: PAC 13:01
PROVIDERS: ATTEND Orthopaedic Surgery
DX: M16.12 Unilateral primary osteoarthritis, left hip (principal)

== ENCOUNTER → 2021-03-15 | Outpatient (CLI) | payer OTHER ==
[~2021-03-15] MED LIST changes: +B COMPLEX1 EACH PO; +HARD NAILS2500 MCG PO; +HUMULIN R100 UNIT/1 SUBQ; +NOVOLIN N100 UNIT/3 SUBQ; +VITAMIN C500 M2 PO; +WOMEN'S 50 PLU1 EAC1 PO
[2021-03-15 15:20] LABS: URINE BILIRUBIN NEGATIVE (Negative); URINE BLOOD TRACE (Negative); URINE CLARITY CLEAR; URINE COLOR YELLOW; URINE GLUCOSE-RANDOM* NEGATIVE (Negative); URINE KETONES NEGATIVE (Negative); URINE NITRITE-REFLEX NEGATIVE (Negative); URINE PROTEIN (DIPSTICK) 1+ (Negative); URINE SPECIFIC GRAVITY 1.025 (1.005-1.035); URINE UROBILINOGEN 0.2 E.U./dl (0.2-1.0)
[2021-03-15 15:22] LABS: URINE LEUKOCYTES-REFLEX 1+ (Negative)
[2021-03-15 15:32] LABS: HEMATOCRIT 31.7 % (37.0-47.0); HEMOGLOBIN 10.5 gm/dL (12.0-15.0); MCH 30.4 pg (26.0-34.0); MCHC 33.2 g/dL (28.0-37.0); MCV 91.7 fL (80.0-100.0); RBC 3.46 mil/uL (4.20-5.00); RDW 14.2 % (10.5-14.5)
[2021-03-15 15:34] LABS: ALBUMIN 3.2 g/dL (3.4-5.0); BACTERIA-REFLEX >30 Many /HPF (None Seen); CALCIUM 9.3 mg/dL (8.5-10.1); CASTS None Seen /LPF (None Seen); CREATININE 2.6 mg/dL (0.6-1.0); CRYSTALS None Seen /LPF (None Seen); POTASSIUM 4.7 mmol/L (3.5-5.1); SQUAMOUS 4-10 Moderate /LPF (0-3); URINE RBC 1-2 Rare /HPF (NONE SEEN)
[2021-03-15 15:35] LABS: PROTIME 10.4 Seconds (9.3-11.4)
[2021-03-16 07:09] LABS: GLYCOHEMOGLOBIN (HGB A1C) 7.7 % (4.8-5.6)
== END ==
LOC: PAC 13:36
PROVIDERS: ATTEND Orthopaedic Surgery
DX: Z01.812 Encounter for preprocedural laboratory examination (principal); M16.12 Unilateral primary osteoarthritis, left hip

== ENCOUNTER 2021-03-18 06:54 | Inpatient (IN) | payer OTHER ==
[~2021-03-18] VITALS: Ht 152.4 cm; Wt 85.7 kg
[2021-03-18 08:07] VITALS: BP 147/52
--- NOTE | 2021-03-18 11:37 | O ---
[facility] [place] [address] OPERATIVE REPORT Name: ROLAND FOREMAN Room #: [facility] M..#: [id number] Admission: 03/18/21 Attend Phys: Isaias Vail MD Discharge: Date of : 49 Report #: [id number] THIS REPORT FOR: cc: Gary Simental MD, Neal A. MD Clymer,Isaias Johnson MD ~ DATE OF SERVICE: 03/18/2021 PREOPERATIVE DIAGNOSIS: End-stage degenerative arthritis, left hip. POSTOPERATIVE DIAGNOSIS: End-stage degenerative arthritis, left hip. PROCEDURE: Left total hip replacement. SURGEON: Isaias Vail MD INDICATIONS: This heavy deconditioned 75-year-old female has a number of chronic medical problems. She is a brittle diabetic. She has moderate degenerative arthritis in multiple joints. Her principal complaint now is left hip pain. She has decided to go ahead with left total hip replacement. This has been postponed in the past due to her obesity and her poor diabetic control. Those have improved somewhat and we have elected to go ahead with surgery. DESCRIPTION OF PROCEDURE: The patient was taken to the operating room where she was placed under general anesthesia. She was turned to the right lateral decubitus position. The left hip and thigh were meticulously prepped and draped. A slightly curving posterolateral skin incision was made centered over the greater trochanter. This was carried through subcutaneous tissues and fascia exposing the posterior aspect of the hip joint. The short external rotators and caps were taken down and preserved and tagged with several #1 FiberWire sutures. The hip was dislocated posteriorly and a femoral neck osteotomy was performed. Marked degenerative change of both the femoral head and acetabulum was noted. Some surrounding spurring was debrided. The canal was opened with reamers and hand broaches. The Ventura and Nephew hip system was utilized. The femur seemed best suited for a size 14 standard femoral stem. The trial stem was removed and attention directed to the acetabulum. Satisfactory exposure was established and the acetabular reamers were used, gradually advancing to a 52 mm reamer. The Ventura and Nephew size 52, three-hole StikTite shell was selected. This was impacted into the acetabulum in alignment with her true acetabulum, which placed this at about 45 degrees off of vertical and about 20 degrees of anteversion. It seated nicely and appeared to be secure. In addition, 3 cancellous screws were placed through the apical holes engaging good periacetabular bone, which added nicely to stability. The polyethylene liner was then inserted using the 36 mm inside diameter liner and positioning the 20-degree elevated rim at about the 10 o'clock posterior position. This snapped into place and seated nicely and appeared to be secure. [facility] [address] [place] [address] OPERATIVE REPORT Name: ROLAND FOREMAN Room #: [facility] M.R.#: [id number] Admission: 03/18/21 Attend Phys: Isaias Vail MD Discharge: Date of : 49 Report #: [id number] The Ventura and Nephew size 14 standard offset Synergy porous femoral stem was selected. This was impacted in the canal, placing this in about 20 degrees of anteversion. It seated nicely and appeared to be secure. Trial reduction was performed and the hip seemed best suited for a +0 neck length using the 36 mm head size. The permanent cobalt chrome 36 mm head with a +0 neck length was selected. This was impacted on the Graham taper. It seated nicely and appeared to be secure. The hip was once again reduced. Alignment, range of motion and stability were felt to be satisfactory. The capsule and short external rotators were repaired back to the bone using #1 FiberWire sutures passed through small drill holes in the greater trochanter. This added nicely to hip stability. A single Hemovac was left in the wound exiting through a separate stab incision. The fascia was closed with multiple #1 Vicryl sutures. The subcutaneous tissues were closed with 0 Monocryl. The skin was closed with skin rk. A sterile dressing was applied. The patient was awakened and returned to recovery room in good condition. <ELECTRONICALLY SIGNED> By: Isaias Vail MD 03/18/21 1137 1008 1022 Isaias Vail MD /nt
--- NOTE | 2021-03-18 15:20 | NUR ---
PT ADMITTED RELATED TO TOTAL LEFT HIP REPLACEMENT. CM REVIEWED CHART AND SPOKE WITH CARE TEAM. CM MET WITH PT AND HER SIGNIFICANT OTHER JEAN MACKAY AT BEDSIDE THIS DAY. PT APPEARED TO BE A&O X4. CM ROLE INTRODUCED. PT INDICATED SHE LIVES IN A HOUSE WITH JEAN WITH RAMPS TO ENTER THROUGH FRONT AND PATTIO OFF KITCHEN. THEY INDICTED THAT THERE ARE 3 STEPS INSIDE BUT THAT IF PT ENTERS THROUGH PATIO OFF KITCHEN SHE CAN AVOID THEM. PT INDICATED SHE HAD BEEN USING A FWW, WC, AND CPAP PRIOR TO ADMISSION. PT HAS BEEN TO 5N AND USED [facility] IN THE PAST. PT INDICATED SHE PLANS TO BE ABLE TO RETURN HOME ONCE MEDICALLY STABLE AND IS HOPING TO GO TO OP PT AND OT HERE AT [facility]. PT AND OT TO EVAL AND MAKE RECOMMENDATIONS. CM FOLLOWING REGARDING DC PLANNING NEEDS.
--- NOTE | 2021-03-18 15:35 | NUR ---
Assumed care of patient at approximately 1230 from PACU following LTHR. Patient oriented to self and place but not situation. Slightly drowsy from pain medication. Patient on 2L nasal cannula, does not wear O2 at baseline. Lung sounds clear over diminished, normal heart tones, pulses present. Pain present in L hip, pt does not report numbness or tingling in extremity. Vital signs stable. Dressing c/d/i. Fall precautions initiated. Patient's significant other at bedside. No concerns at this time.
[2021-03-18 17:04] VITALS: BP 126/62
[2021-03-18 19:39] VITALS: BP 130/36
[2021-03-19 05:16] LABS: CALCIUM 8.4 mg/dL (8.5-10.1); CREATININE 2.9 mg/dL (0.6-1.0); MAGNESIUM 2.1 mg/dL (1.8-2.4)
[2021-03-19 05:22] LABS: POTASSIUM 5.9 mmol/L (3.5-5.1)
[2021-03-19 05:25] LABS: ABSOLUTE NEUTROPHILS 13.5 thou/uL (1.4-8.2); BASOPHILS 0.1 % (0.0-2.0); HEMATOCRIT 27.1 % (37.0-47.0); LYMPHOCYTES 3.6 % (24.0-44.0); MCH 30.8 pg (26.0-34.0); MCHC 33.3 g/dL (28.0-37.0); MCV 92.5 fL (80.0-100.0); MONOCYTES 3.6 % (1.0-8.0); PLATELET COUNT 234 thou/uL (150-400); POLYS 92.7 % (36.0-66.0); RBC 2.93 mil/uL (4.20-5.00); RDW 14.3 % (10.5-14.5); WBC 14.6 thou/uL (4.0-11.0)
--- NOTE | 2021-03-19 07:17 | NUR ---
Pt. rested quietly at short intervals during the night when checked on during frequent rounds. She has been medicated for c/o pain to her left hip with some relief (see emar). Assisted up to the bedside comode with gait belt and she did void. Dressing to left hip is intact. Bed alarm is on.
[2021-03-19 07:23] VITALS: BP 147/62
[2021-03-19 15:50] VITALS: BP 147/62
[2021-03-19 15:51] VITALS: BP 123/50
--- NOTE | 2021-03-19 16:02 | NUR ---
CARE TEAM INDICATED THAT PT IS MEDICALLY STABLE TO DISCHARGE HOME TOMORROW Monday03/20/21. PT IS TO DC HOME WITH [facility]. PT HAS ALL NEEDED DME. ORDERS WILL NEED TO BE FAXED TO . CALL TO NOTIFY THEM OF DISCHARGE. PT'S SIG OTHER TO TRANSPORT PT HOME. NO OTHER CM INTERVNETION ANTICPATED.
--- NOTE | 2021-03-19 17:44 | NUR ---
Patient is A&ox4 and makes needs known. Patient voicing "burning pain" at site of incision on L hip. Patient is also voicing nausea partially relieved by meclizine. Patient worked with PT/OT and did well. Hemovac to be discontinued this day however patient states "it hurts too much". Patient is set to discharge home with home health tomorrow 2. Besides pain and nausea, patient denies further needs.
[2021-03-19 19:20] VITALS: BP 122/57
--- NOTE | 2021-03-20 03:58 | NUR ---
Pt. rested quietly during the night when checked on during frequent rounds. Dressing to left hip is dry and intact. Bed alarm is on.
[2021-03-20 09:56] VITALS: BP 147/62
--- NOTE | 2021-03-20 10:33 | NUR ---
ASSUMED CARE OF PT AT 0700 THIS MORNING. PT IS A/OX4 AND HAS HAD LT TTL HIP REPLACEMENT 03/18/21. PT HAS DISCHARGE AND NOTE FROM [facility] THAT PT CAN GO HOME WITH HOME HEALTH. DRESSING ON LT HIP IS C/D/I AND NO DRAINAGE NOTED. ASSESSMENTS NOTED IN CHART AND OTHERWISE UNREMARKABLE. PT STATED SHE HAS NO WAY TO TAKE CARE OF HERSELF AND BOYFRIEND IS RECOVERING FROM SURGERY. CALLED [facility] AND WAITING FOR CALL BACK. FALL PRECAUTIONS ARE IN PLACE. CALL LIGHT AND OTHER NEEDS ARE IN REACH. MEDS AND TX GIVEN NEEDED AND SCHEDULED. WILL MONITOR AND NOTE ANY CHANGES.
--- NOTE | 2021-03-20 10:41 | NUR ---
PT DISCHARGING TODAY TO HOME WITH [facility] FAXED DC ORDERS/SUMMARY RECEIVED CONFIRMATION AND THEY WILL ARRANGE VISITS WITH PT.
[2021-03-20 12:31] VITALS: BP 114/48
[2021-03-20 16:01] VITALS: BP 124/57
[2021-03-20 20:25] VITALS: BP 128/46
--- NOTE | 2021-03-21 04:42 | NUR ---
PT TRANSFERRING TO [facility] WITH ASSIST AND IS TOLERATING FAIR. [facility] PROVIDING PAIN RELIEF. POSSIBLE DISCHARGE HOME 03/21. RESTING COMFORTABLY. NO NEEDS VOICED. CALL LIGHT WITHIN REACH. FREQUENT OBSERVATION.
[2021-03-21 07:35] VITALS: BP 138/58
[2021-03-21 09:28] VITALS: BP 147/62
[2021-03-21 16:26] VITALS: BP 147/62
--- NOTE | 2021-03-23 17:47 | D ---
[facility] [place] [address] DISCHARGE SUMMARY Name: ROLAND FOREMAN Room #: 441-P [facility] IN M.R.#: [id number] Admission: 03/20/21 Attend Phys: Isaias Vail MD Discharge: 03/21/21 Date of : 49 Report #: [id number] THIS REPORT FOR: cc: Gary Simental MD, Neal A. MD Clymer,Isaias Johnson MD ~ Admitted on 03/18, discharge planned is tomorrow on 03/20. 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 OPERATIONS AND PROCEDURES: Left total hip replacement. HISTORY: This heavy 75-year-old female has multiple medical problems with obesity and rather severely brittle diabetes and hypertension. She also has severe progressive degenerative arthritis in multiple areas. She has some chronic back pain as well as chronic pain involving both hips and both knees. At this point, her left hip is the most significant problem and she has elected to go ahead with left total hip replacement. This has been delayed in the past due to poor diabetic control. She seems to be under fair control at this point and we have elected to go ahead with surgery. She also has problems with bacteremia, but is asymptomatic and afebrile. This is being treated with oral antibiotics. HOSPITAL COURSE: The patient was admitted and taken to the operating room on 03/18. She underwent left total hip replacement, which went nicely and she tolerated it well. Postoperatively, she seems to be making good progress. The dressing is dry. The Hemovac is decreasing in output and will be removed today. She is starting physical therapy and is able to get up with a walker and begin some limited ambulation. She has resumed her diabetic diet. She continues to have great difficulty with diabetic control. Her fasting blood sugars have been in the range of 130-150, but blood sugars through the day frequently exceed 300. She continues on a sliding scale insulin regimen. She continues on her other routine medications for hypertension and chronic pain. She seems to be making adequate progress with physical therapy and nursing assistance. She is hoping for discharge home on 03/20. She will have family assistance there, but I think some visiting therapy and visiting occupational therapy would be helpful. We will try to make those arrangements. She will continue with careful sliding scale insulin regimen directed by her primary care physician, Dr. Simental. I will plan to see her back in my office in 1 week and again in 2 weeks for followup and suture removal. DISCHARGE MEDICATIONS: Include oxybutynin 5 mg daily, amlodipine 10 mg daily, meclizine 50 mg daily, Cymbalta 30 mg b.i.d., spironolactone 50 mg daily, Lipitor 10 mg daily, Synthroid 25 mcg daily, Coreg 25 mg b.i.d., Lasix 20 mg daily, vitamin B12 50 mcg daily, melatonin 10 mg at bedtime, hydrocodone [address] [address] DISCHARGE SUMMARY Name: ROLAND FOREMAN Room #: 441-P [facility] M.R.#: [id number] Admission: 03/20/21 Attend Phys: Isaais Vail MD Discharge: 03/21/21 Date of : 49 Report #: [id number] one q. 4 hours as needed for pain, Xarelto 10 mg daily, insulin on an aggressive sliding scale regimen with usually 30-50 units 3 or 4 times daily. She is also on Septra DS 1 tablet twice daily for chronic bacteriuria. She will follow up with Dr. Simental regarding her general medical and diabetic management. She is instructed to call me if there are any problems with the hip. I will plan to see her back in my office in 1 week and again in 2 weeks for suture removal. <ELECTRONICALLY SIGNED> By: Isaias Vail MD 03/23/21 1747 0812 0829 Isaias Vail MD /nt
== END 2021-03-21 18:10 | disposition home health service (06) | DRG 470 ==
LOC: 4S 06:54 → OR 06:54 → 4S 12:28 → OR 13:07 → 4S 03-20 11:02
PROVIDERS: Nurse Practitioner; ADMIT Orthopaedic Surgery; ATTEND Orthopaedic Surgery
PROC: 0SRB01Z Replacement of Left Hip Joint with Metal Synthetic Substitute, Open Approach (ICD-10-PCS; principal; 2021-03-18)
PROC: 5A09357 Assistance with Respiratory Ventilation, Less than 24 Consecutive Hours, Continuous Positive Airway Pressure (ICD-10-PCS; 2021-03-18)
PROC: 5A09357 Assistance with Respiratory Ventilation, Less than 24 Consecutive Hours, Continuous Positive Airway Pressure (ICD-10-PCS; 2021-03-21)
DX: M16.12 Unilateral primary osteoarthritis, left hip (principal); I69.351 Hemiplegia and hemiparesis following cerebral infarction affecting right dominant side; N18.9 Chronic kidney disease, unspecified; Z20.822 Contact with and (suspected) exposure to COVID-19; Z88.8 Allergy status to other drugs, medicaments and biological substances; I25.10 Atherosclerotic heart disease of native coronary artery without angina pectoris; E03.9 Hypothyroidism, unspecified; E66.01 Morbid (severe) obesity due to excess calories; Z68.36 Body mass index [BMI] 36.0-36.9, adult; Z71.3 Dietary counseling and surveillance; E78.5 Hyperlipidemia, unspecified; F32.A Depression, unspecified; I12.9 Hypertensive chronic kidney disease with stage 1 through stage 4 chronic kidney disease, or unspecified chronic kidney disease; E11.22 Type 2 diabetes mellitus with diabetic chronic kidney disease; Z95.1 Presence of aortocoronary bypass graft; Z86.14 Personal history of Methicillin resistant Staphylococcus aureus infection
CPT/HCPCS: 10102; 50010; 50382; 50414; 51412; 53000; 53367; 56521; 56525; 56530; 57095; 57103